=== PATIENT | female | born 1975 | race African-American/Black ===

== ENCOUNTER 2017-06-17 17:38 | Inpatient (IN) | payer MEDICAID, OTHER ==
[~2017-06-17] VITALS: Ht 175.3 cm; Wt 93.5 kg
[2017-06-17] VITALS (7 sets, daily range): BP systolic 126–149; BP diastolic 79–87; PULSE 91–106; RESP 16–18; TEMP 98.2–98.9; O2SAT 97–100
[~2017-06-17 17:38] MED LIST: CYCL-36 PO; GLUCTAB PO; HYDR10TA16 PO; LOMO PO; NEUR600T PO; OXYB5TAB PO; RANI150 PO; SERT100 PO; ZOFR4TAB PO
[2017-06-17] MEDS ORDERED: SODIUM CHLOR 0.9% 1000 ML INJ 1,000 ML IV SCH ×2 (17:48→19:15)
[2017-06-17] MEDS ORDERED: NALOXONE HCL 2 MG/2 ML VIAL IV PUSH ONE (18:00)
[2017-06-17] MEDS ORDERED: SODIUM CHLORIDE 0.9% FLUSH 10 ML FLUSH IV FLUSH PRN ×2 (18:00→19:15)
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
[2017-06-17 18:32] LABS: AUTOMATED NEUTROPHIL # 2.2 TH/MM3 (1.8-7.7); BASOPHIL % 0.7 % (0.0-2.0); EOSINOPHIL # 0.3 TH/MM3 (0-0.4); EOSINOPHIL % 4.4 % (0.0-4.0); HEMATOCRIT 41.7 % (35.0-46.0); HEMOGLOBIN 13.8 GM/DL (11.6-15.3); LYMPH % 47.2 % (9.0-44.0); LYMPHOCYTE # 2.8 TH/MM3 (1.0-4.8); MEAN CELL VOLUME 82.4 FL (80.0-100.0); MEAN CORPUSCULAR HEMOGLOBIN 27.3 PG (27.0-34.0); MEAN CORPUSCULAR HGB CONC 33.1 % (32.0-36.0); MEAN PLATELET VOLUME 8.2 FL (7.0-11.0); MONO % 11.3 % (0.0-8.0); MONOCYTE # 0.7 TH/MM3 (0-0.9); NEUT % 36.4 % (16.0-70.0); PLATELET COUNT 331 TH/MM3 (150-450); RED BLOOD COUNT 5.06 MIL/MM3 (4.00-5.30)
[2017-06-17 18:47] LABS: PROTHROMBIN TIME - PATIENT 10.6 SEC (9.8-11.6)
--- NOTE | 2017-06-17 19:00 | RADRPT ---
EXAM DATE/TIME: 06/17/2017 18:45 [facility] COMPARISON: No previous studies available for comparison. INDICATIONS : Syncopal episode. Unresponsive. RADIATION DOSE: 56.35 CTDIvol (mGy) MEDICAL HISTORY : Non-responsive. SURGICAL HISTORY : Non-responsive. ENCOUNTER: Initial ACUITY: 1 day PAIN SCALE: Non-responsive LOCATION: cranial TECHNIQUE: Multiple contiguous axial images were obtained of the head. Using automated exposure control and adj ustment of the mA and/or kV according to patient size, radiation dose was kept as low as reasonably a chievable to obtain optimal diagnostic quality images. DICOM format image data is available electro nically for review and comparison. FINDINGS: CEREBRUM: The ventricles are normal for age. No evidence of midline shift, mass lesion, hemorrhage or acute in farction. No extra-axial fluid collections are seen. POSTERIOR FOSSA: The cerebellum and brainstem are intact. The 4th ventricle is midline. The cerebellopontine angle i s unremarkable. EXTRACRANIAL: The visualized portion of the orbits is intact. SKULL: The calvaria is intact. No evidence of skull fracture. CONCLUSION: No acute intracranial abnormalities are demonstrated. Rodrigo Rodriguez MD on June 17, 2017 at 18:58 Board Certified Radiologist. This report was verified electronically.
[2017-06-17 19:01] LABS: ALT (GPT) 25 U/L (10-53)
[2017-06-17 19:11] LABS: ALKALINE PHOSPHATASE 73 U/L (45-117); TOTAL BILIRUBIN ADULT 0.2 MG/DL (0.2-1.0); TOTAL PROTEIN 7.4 GM/DL (6.4-8.2)
[2017-06-17] MEDS ORDERED: LACTULOSE SYRUP 20 GM/30 ML CUP PO PRN (19:15)
[2017-06-17] MEDS ORDERED: MAGNESIUM HYDROXIDE SUSP 30 ML CUP PO PRN (19:15)
[2017-06-17] MEDS ORDERED: SENNOSIDES 8.6 MG TAB PO PRN (19:15)
[2017-06-17] MEDS ORDERED: MISCELLANEOUS NURSING INFORMATION XX SCH (19:15)
[2017-06-17] MEDS ORDERED: RESP: ALBUTEROL 2.5 MG/IPRATROPIUM 0.5 MG NEB (PRN) INH (19:15)
[2017-06-17] MEDS ORDERED: BISACODYL 10 MG SUPP RECTAL PRN (19:15)
[2017-06-17] MEDS ORDERED: CHLORHEXIDINE GLUCONATE 2 % 1 PACK (2 CLOTHS) TOP PRN (19:15)
[2017-06-17 19:17] LABS: ALBUMIN 3.2 GM/DL (3.4-5.0); AST (GOT) 27 U/L (15-37); BICARBONATE 27.3 MEQ/L (21.0-32.0); BLOOD UREA NITROGEN 4 MG/DL (7-18); CALCIUM 8.9 MG/DL (8.5-10.1); CHLORIDE 104 MEQ/L (98-107); CREATININE 0.76 MG/DL (0.50-1.00); GLOMERULAR FILTRATION RATE 103 ML/MIN (>89); GLUCOSE,RANDOM 87 MG/DL (74-106); SODIUM (NA) 137 MEQ/L (136-145)
--- NOTE | 2017-06-17 19:24 | RADRPT ---
EXAM DATE/TIME: 06/17/2017 19:11 [facility] COMPARISON: No previous studies available for comparison. INDICATIONS : Syncope MEDICAL HISTORY : None. SURGICAL HISTORY : None. ENCOUNTER: Initial ACUITY: 1 day PAIN SCORE: Non-responsive. LOCATION: chest FINDINGS: A single view of the chest demonstrates the lungs to be symmetrically aerated without evidence of mas s, infiltrate or effusion. The cardiomediastinal contours are unremarkable. Osseous structures are intact. CONCLUSION: No evidence of acute cardiopulmonary disease. Rodrigo Rodriguez MD on June 17, 2017 at 19:21 Board Certified Radiologist. This report was verified electronically.
[2017-06-17 20:08] LABS: BACTERIA, URINE RARE /hpf; BILIRUBIN, URINE NEG (NEG); BLOOD, URINE NEG (NEG); GLUCOSE,URINE NEG (NEG); HYALINE CAST, URINE 1 /lpf (RARE); KETONE, URINE NEG (NEG); MUCUS URINE FEW /lpf (OCC); NITRITE,URINE NEG (NEG); PH, URINE 6.5 (5.0-8.5); SQUAMOUS EPITHELIAL CELL URINE 3 /hpf (0-5); URINE COLOR YELLOW (YELLW/STRAW); URINE LEUKOCYTE ESTERASE TRACE (NEG)
[2017-06-17] MEDS: SODIUM CHLORIDE 0.9% FLUSH 10 ML FLUSH IV FLUSH SCH (21:00)
[2017-06-17] MEDS: DOCUSATE SODIUM 50 MG/SENNA 8.6 MG TAB PO SCH (21:00)
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
[2017-06-18] VITALS (12 sets, daily range): BP systolic 115–132; BP diastolic 68–80; PULSE 84–104; RESP 14–16; TEMP 97.6–99; O2SAT 100
[2017-06-18] MEDS: ONDANSETRON HCL 4 MG/2 ML VIAL IV PUSH PRN ×2 (01:21→06:07)
[2017-06-18] MEDS ORDERED: ACETAMINOPHEN 1000 MG/100 ML 100 ML IV ONE (02:45)
[2017-06-18 04:04] LABS: AUTOMATED NEUTROPHIL # 2.9 TH/MM3 (1.8-7.7); BASOPHIL % 0.6 % (0.0-2.0); EOSINOPHIL # 0.2 TH/MM3 (0-0.4); EOSINOPHIL % 3.2 % (0.0-4.0); HEMATOCRIT 38.8 % (35.0-46.0); HEMOGLOBIN 12.8 GM/DL (11.6-15.3); LYMPH % 35.7 % (9.0-44.0); LYMPHOCYTE # 2.2 TH/MM3 (1.0-4.8); MEAN CELL VOLUME 82.9 FL (80.0-100.0); MEAN CORPUSCULAR HEMOGLOBIN 27.4 PG (27.0-34.0); MEAN PLATELET VOLUME 7.7 FL (7.0-11.0); MONOCYTE # 0.7 TH/MM3 (0-0.9); NEUT % 48.5 % (16.0-70.0); PLATELET COUNT 293 TH/MM3 (150-450); RED BLOOD COUNT 4.68 MIL/MM3 (4.00-5.30); RED CELL DISTRIBUTION WIDTH 13.9 % (11.6-17.2); WHITE BLOOD COUNT 6.1 TH/MM3 (4.0-11.0)
[2017-06-18] MEDS: CHLORHEXIDINE GLUCONATE 2 % 1 PACK (2 CLOTHS) TOP SCH (04:12)
[2017-06-18 04:29] LABS: ALKALINE PHOSPHATASE 66 U/L (45-117); ALT (GPT) 24 U/L (10-53); AST (GOT) 19 U/L (15-37); BICARBONATE 27.7 MEQ/L (21.0-32.0); BLOOD UREA NITROGEN 4 MG/DL (7-18); CALCIUM 7.8 MG/DL (8.5-10.1); CHLORIDE 107 MEQ/L (98-107); GLOMERULAR FILTRATION RATE 135 ML/MIN (>89); GLUCOSE,RANDOM 90 MG/DL (74-106); MAGNESIUM 1.9 MG/DL (1.5-2.5); PHOSPHORUS 3.5 MG/DL (2.5-4.9); SODIUM (NA) 139 MEQ/L (136-145); TOTAL BILIRUBIN ADULT 0.2 MG/DL (0.2-1.0); TOTAL PROTEIN 6.8 GM/DL (6.4-8.2)
--- NOTE | 2017-06-18 08:43 | HHI.CCPN ---
Subjective Remarks/Hospital Course This is a 41-year-old female with a history of previous cauda equina syndrome with resultant right lower extremity paralysis, who presents via EMS from home after she reportedly was unresponsive since earlier today. As reported by paramedics, the patient has had URI type symptoms for the last 5-7 days. Paramedics report that the family stated that she has been pretty much laying on the couch and not ambulatory for several days. There is no reported fevers. There is no reported nausea vomiting. The patient is a diabetic. The patient 's blood sugar was above 60 by paramedics and is 97 here. The patient is unable to give any history. Patient was accepted for admission by critical care medicine service. When I evaluated the patient I obtain more history from the family at bedside. Patient [place] 2 [place] for question of tremors and was diagnosed with seizures. She was referred to be tests hospice. Per family they are not aware of any EEGs or neurology workup. Per family she was prescribed new medications and since then has been declining. Patient reportedly was awake and alert this morning and showered as well. Since arrival in the ER patient has been very lethargic though arousable with sternal rub. There is no documented fever. Family denies any nausea vomiting diarrhea. There was some question of swelling over her forehead which is not present currently. Head CT done in the ER was negative for any bleed. When I evaluated the patient she was laying in the ER stretcher not in any acute distress maintaining her O2 sats and blood pressure. History was obtained by reviewing records and discussion with family members and Dr. Brunson in the ER. 06/18 Patient is lying in bed in NAD. Afebrile. CT brain last night no acute disease.Afebrile. Objective Vital Signs Date Time Temp Pulse Resp B/P (MAP) Pulse Ox O2 Delivery O2 Flow Rate FiO2 06/18/17 08:11 100 06/18/17 06:00 84 06/18/17 04:00 97.6 14 124/69 (87) 06/17/17 22:48 Room Air Intake and Output 06/18/17 06/18/17 06/19/17 08:00 16:00 00:00 Intake Total 673 ml Output Total 750 ml Balance -77 ml Result Diagram: 06/18/17 0345 06/18/17 0345 Other Results Laboratory Tests Test 1/25/18 17:55 06/17/17 17:59 06/17/17 19:05 06/17/17 19:30 Blood Gas Puncture Site RT BRACHIAL Blood Gas Patient Temperature 98.6 Blood Gas HCO3 27 mmol/L Blood Gas Base Excess 2.7 mmol/L Blood Gas Oxygen Saturation 94 % Arterial Blood pH 7.42 Arterial Blood Partial Pressure CO2 42 mmHg Arterial Blood Partial Pressure O2 97 mmHG Arterial Blood Oxygen Content 17.3 Vol % Arterial Blood Carboxyhemoglobin 3.6 % Arterial Blood Methemoglobin 0.7 % Blood Gas Hemoglobin 13.1 G/DL Blood Gas Inspired Oxygen 21 % White Blood Count 6.0 TH/MM3 Red Blood Count 5.06 MIL/MM3 Hemoglobin 13.8 GM/DL Hematocrit 41.7 % Mean Corpuscular Volume 82.4 FL Mean Corpuscular Hemoglobin 27.3 PG Mean Corpuscular Hemoglobin Concent 33.1 % Red Cell Distribution Width 14.0 % Platelet Count 331 TH/MM3 Mean Platelet Volume 8.2 FL Neutrophils (%) (Auto) 36.4 % Lymphocytes (%) (Auto) 47.2 % Monocytes (%) (Auto) 11.3 % Eosinophils (%) (Auto) 4.4 % Basophils (%) (Auto) 0.7 % Neutrophils # (Auto) 2.2 TH/MM3 Lymphocytes # (Auto) 2.8 TH/MM3 Monocytes # (Auto) 0.7 TH/MM3 Eosinophils # (Auto) 0.3 TH/MM3 Basophils # (Auto) 0.0 TH/MM3 CBC Comment DIFF FINAL Differential Comment Prothrombin Time 10.6 SEC Prothromb Time International Ratio 1.0 RATIO Activated Partial Thromboplast Time 21.4 SEC Blood Urea Nitrogen 4 MG/DL Creatinine 0.76 MG/DL Random Glucose 87 MG/DL Total Protein 7.4 GM/DL Albumin 3.2 GM/DL Calcium Level 8.9 MG/DL Alkaline Phosphatase 73 U/L Aspartate Amino Transf (AST/SGOT) 27 U/L Alanine Aminotransferase (ALT/SGPT) 25 U/L Total Bilirubin 0.2 MG/DL Sodium Level 137 MEQ/L Potassium Level 4.2 MEQ/L Chloride Level 104 MEQ/L Carbon Dioxide Level 27.3 MEQ/L Anion Gap 6 MEQ/L Estimat Glomerular Filtration Rate 103 ML/MIN Ammonia 17 MCMOL/L Total Creatine Kinase 228 U/L Creatine Kinase MB 3.4 NG/ML Creatine Kinase MB % 1.5 % Thyroid Stimulating Hormone 3rd Gen 1.760 uIU/ML Ethyl Alcohol Level LESS THAN 3 MG/DL Nasal Screen MRSA (PCR) MRSA NOT DETECTED Urine Color YELLOW Urine Turbidity CLEAR Urine pH 6.5 Urine Specific [place] 1.011 Urine Protein NEG mg/dL Urine Glucose (UA) NEG mg/dL Urine Ketones NEG mg/dL Urine Occult Blood NEG Urine Nitrite NEG Urine Bilirubin NEG Urine Urobilinogen LESS THAN 2.0 MG/DL Urine Leukocyte Esterase TRACE Urine RBC LESS THAN 1 /hpf Urine WBC 3 /hpf Urine Squamous Epithelial Cells 3 /hpf Urine Bacteria RARE /hpf Urine Hyaline Casts 1 /lpf Urine Mucus FEW /lpf Microscopic Urinalysis Comment CULT NOT INDICATED Urine Opiates Screen POS Urine Barbiturates Screen NEG Urine Amphetamines Screen NEG Urine Benzodiazepines Screen NEG Urine Cocaine Screen NEG Urine Cannabinoids Screen POS Test 06/18/17 03:45 White Blood Count 6.1 TH/MM3 Red Blood Count 4.68 MIL/MM3 Hemoglobin 12.8 GM/DL Hematocrit 38.8 % Mean Corpuscular Volume 82.9 FL Mean Corpuscular Hemoglobin 27.4 PG Mean Corpuscular Hemoglobin Concent 33.0 % Red Cell Distribution Width 13.9 % Platelet Count 293 TH/MM3 Mean Platelet Volume 7.7 FL Neutrophils (%) (Auto) 48.5 % Lymphocytes (%) (Auto) 35.7 % Monocytes (%) (Auto) 12.0 % Eosinophils (%) (Auto) 3.2 % Basophils (%) (Auto) 0.6 % Neutrophils # (Auto) 2.9 TH/MM3 Lymphocytes # (Auto) 2.2 TH/MM3 Monocytes # (Auto) 0.7 TH/MM3 Eosinophils # (Auto) 0.2 TH/MM3 Basophils # (Auto) 0.0 TH/MM3 CBC Comment DIFF FINAL Differential Comment Blood Urea Nitrogen 4 MG/DL Creatinine 0.60 MG/DL Random Glucose 90 MG/DL Total Protein 6.8 GM/DL Albumin 3.0 GM/DL Calcium Level 7.8 MG/DL Phosphorus Level 3.5 MG/DL Magnesium Level 1.9 MG/DL Alkaline Phosphatase 66 U/L Aspartate Amino Transf (AST/SGOT) 19 U/L Alanine Aminotransferase (ALT/SGPT) 24 U/L Total Bilirubin 0.2 MG/DL Sodium Level 139 MEQ/L Potassium Level 3.8 MEQ/L Chloride Level 107 MEQ/L Carbon Dioxide Level 27.7 MEQ/L Anion Gap 4 MEQ/L Estimat Glomerular Filtration Rate 135 ML/MIN Imaging Last Impressions Head CT [id number] Signed Impressions: Service Date/Time: May 18:45 - CONCLUSION: No acute intracranial abnormalities are demonstrated. Rodrigo Rodriguez MD Chest X-Ray [id number] Signed Impressions: Service Date/Time: May 19:11 - CONCLUSION: No evidence of acute cardiopulmonary disease. Rodrigo Rodriguez MD Objective Remarks Narrative GENERAL: Well-developed well-nourished female in no obvious respiratory discomfort. The patient will open her eyes to deep sternal rub only. SKIN: Focused skin assessment warm/dry. HEAD: Atraumatic. Normocephalic. EYES: Pupils equal and round at 3 mm bilaterally. They are reactive.. No scleral icterus. Minimal conjunctival erythema ENT: No nasal bleeding or discharge. Mucous membranes pink and moist. NECK: Trachea midline. No JVD. No neck stiffness noted CARDIOVASCULAR: Regular rate and rhythm. No murmur appreciated. RESPIRATORY: No accessory muscle use. Clear to auscultation. Breath sounds equal bilaterally. Decreased respiratory effort. GASTROINTESTINAL: Abdomen soft, non-tender, nondistended. MUSCULOSKELETAL: No obvious deformities. No clubbing. No cyanosis. No edema. NEUROLOGICAL: Stuporous, nonverbal. Arousable to deep sternal rub with eye opening only. No neck stiffness, Patient not observed moving or withdrawing to painful stimuli. Plantars equivocal A/P Assessment and Plan 41-year-old female with: Encephalopathy: Possibly secondary to medication versus postictal state versus metabolic versus primary neurologic process Diabetes mellitus History of cauda equina syndrome with right lower extremity weakness Morbid obesity ? Epilepsy (unclear) Plan: Neuro: Avoid sedatives and narcotics. Follow neuro status. Head CT negative for bleed. For EEG today, neurology consulted. Check MRI brain for further evaluation UDS: + Opiates, cannabinoids TSH: 1.76, Ammonia level: 17 CV: MOnitor HR and BP keep MAP>65mmHg Pulmo: Continue with oxygen keep sats >92%% Bronchodilators as needed. GI/liver:NPO for now, If no improvement in neurologic status may require NG tube for tube feeds Renal/: Monitor renal function, electrolytes replacement per protocol. Change IVF D5NS@75ml/hr ID: Monitor for signs of infections ( Fever, WBC) Follow up on BC. Endocrine: TSH normal. SSI for glycemic control. Heme: Follow CBC Prophylaxis: SCDs. Hold Lovenox as patient may require lumbar puncture following neurology eval if no improvement in neurologic status. Patient will remain full CODE STATUS at this time. Level 3 Yoni Arias MD Jun 18, 2017 08:43
[2017-06-18] MEDS ORDERED: POTASSIUM PHOSPHATE MONOBASIC 500 MG TAB PO/TUBE PRN (09:00)
[2017-06-18] MEDS ORDERED: SODIUM PHOSPHATE INJ 30 MMOL in SODIUM CHLOR 0.9% 250 ML INJ 240 ML IV PRN (09:00)
[2017-06-18] MEDS ORDERED: MAGNESIUM SULFATE INJ 4 GM in SODIUM CHLORIDE 0.9% INJ 92 ML IV PRN (09:00)
[2017-06-18] MEDS: DOCUSATE SODIUM 50 MG/SENNA 8.6 MG TAB PO SCH ×2 (09:00→19:59)
[2017-06-18] MEDS ORDERED: DEXTROSE 50% IN WATER 50 ML VIAL(D50) IV PUSH PRN (09:00)
[2017-06-18] MEDS ORDERED: POTASSIUM PHOSPHATE INJ 30 MMOL in SODIUM CHLOR 0.9% 250 ML INJ 250 ML IV PRN (09:00)
[2017-06-18] MEDS: INSULIN NovoLIN REGULAR SUPPLEMENTAL SCALE SQ SCH ×3 (09:00→19:59)
[2017-06-18] MEDS ORDERED: POTASSIUM CHLOR 40 MEQ PREMIX 100 ML IV PRN ×2 (09:00)
[2017-06-18] MEDS ORDERED: POTASSIUM CHLOR 20 MEQ PREMIX 100 ML IV PRN ×2 (09:00)
[2017-06-18] MEDS ORDERED: MAGNESIUM SULFATE INJ 2 GM in SODIUM CHLORIDE 0.9% INJ 96 ML IV PRN (09:00)
[2017-06-18] MEDS ORDERED: POTASSIUM PHOSPHATE MONOBASIC 500 MG TAB PO PRN (09:00)
[2017-06-18] MEDS ORDERED: MAGNESIUM OXIDE 400 MG TAB PO PRN (09:00)
[2017-06-18] MEDS ORDERED: GLUCAGON 1 MG/ML VIAL OTHER PRN (09:00)
[2017-06-18] MEDS ORDERED: POTASSIUM CHLORIDE 25 MEQ EFFERVESCENT TAB PO PRN (09:00)
--- NOTE | 2017-06-18 09:57 | EKG ---
Date Performed: 06/17/2017 Time Performed: 17:35:22 PTAGE: 41 years EKG: Sinus rhythm LOW QRS VOLTAGE IN PRECORDIAL LEADS POSSIBLE RIGHT VENTRICULAR CONDUCTION DELAY BORDERLINE ECG INTER PRETATION BASED ON A DEFAULT AGE OF 42 YEARS NO PREVIOUS TRACING DOCTOR: Ramesh Romo Interpretating Date/Time 06/18/2017 09:55:52
--- NOTE | 2017-06-18 11:16 | RADRPT ---
EXAM DATE/TIME: 06/18/2017 10:28 [facility] COMPARISON: CT BRAIN W/O CONTRAST, June 17, 2017, 18:45. INDICATIONS : Altered mental status. MEDICAL HISTORY : None. SURGICAL HISTORY : None. ENCOUNTER: Subsequent ACUITY: 2 day PAIN SCORE: Nonresponsive. LOCATION: cranial TECHNIQUE: Multiplanar, multisequence MRI of the brain was performed without contrast. FINDINGS: CEREBRUM: The ventricles are normal for age. No evidence of midline shift, mass lesion, hemorrhage or acute in farction. No extraaxial fluid collections are seen. The pituitary gland and suprasellar cistern are normal in configuration. WHITE MATTER: No significant signal abnormalities are seen in the white matter. POSTERIOR FOSSA: The cerebellum and brainstem are intact. The 4th ventricle is midline. The cerebellopontine angle is unremarkable. The cerebellar tonsils are normal in position. DIFFUSION IMAGING: No focal areas of restricted diffusion are seen. No evidence of acute infarction. EXTRACRANIAL: The visualized portions of the orbits and paranasal sinuses are unremarkable. CONCLUSION: Negative exam. Kwesi Campoverde MD on June 18, 2017 at 11:11 Board Certified Radiologist. This report was verified electronically.
[2017-06-18] MEDS: DEXT 5%-NACL 0.9% 1000 ML INJ 1,000 ML IV SCH ×2 (12:39→22:20)
[2017-06-18] MEDS ORDERED: LORazepam 2 MG/ML VIAL IV PRN (14:15)
--- NOTE | 2017-06-18 16:23 | RADRPT ---
EXAM DATE/TIME: 06/18/2017 15:45 [facility] COMPARISON: No previous studies available for comparison. INDICATIONS : Pain. Neck pain, and right upper extremity weakness. MEDICAL HISTORY : None. SURGICAL HISTORY : Discectomy, lumbar. ENCOUNTER: Initial ACUITY: 1 day PAIN SCORE: 4/10 LOCATION: Paraspinal TECHNIQUE: Multiplanar, multisequence MRI examination of the cervical spine was performed. FINDINGS: By MRI the marrow signal in the cervical vertebrae are homogeneous and normal. Cerebellar tonsils ar e normal in composition. C2-C3: The thecal sac has a normal configuration. There is no evidence of disc herniation or spinal canal s tenosis. The neural foramina are patent bilaterally. C3-C4: Moderate uncinate ridging is present with moderate right-sided neural foraminal encroachment. C4-C5: Uncinate ridging is present with mild bilateral neural foramina encroachment worse on the right than the left. C5-C6: Moderately ridging is present minimal right sided neural foramina encroachment. Neural foramina are adequate. C6-C7: The thecal sac has a normal configuration. There is no evidence of disc herniation or spinal canal s tenosis. The left neural foramen is adequate. C7-T1: The thecal sac has a normal configuration. There is no evidence of disc herniation or spinal canal s tenosis. The neural foramina are patent bilaterally. CONCLUSION: Mild degenerative changes. There is no significant spinal stenosis to account for th e opportunity weakness. The density in the cervical cord is normal. René Serrano MD FACR on June 18, 2017 at 16:19 Board Certified Radiologist. This report was verified electronically.
--- NOTE | 2017-06-18 19:45 | RADRPT ---
EXAM DATE/TIME: 06/18/2017 18:34 [facility] COMPARISON: No previous studies available for comparison. INDICATIONS : Syncope. MEDICAL HISTORY : Herniated disk. Diabetes. Ovarian cysts. SURGICAL HISTORY : section. Orthopedic surgery. D&C. ENCOUNTER: Initial ACUITY: 1 day PAIN SCORE: 0/10 LOCATION: Bilateral neck PEAK SYSTOLIC VELOCITIES (cm/sec): ICA/CCA RATIO: Right: 0.8 Left: 0.7 ICA: Right: 81.1 Left: 83.1 CCA: Right: 104.4 Left: 110.8 ECA: Right: 82.4 Left: 93.0 VERTEBRAL: Right: 59.2 antegrade Left: 50.1 antegrade Elevated flow velocities and ICA/CCA ratios have been found to correlate with increased degrees of vessel stenosis, calculated as percentage of diameter relative to a normal segment of distal ICA/CCA FINDINGS: RIGHT CAROTID: No significant stenosis is visualized. The waveforms are within normal limits. LEFT CAROTID: No significant stenosis is visualized. The waveforms are within normal limits. VERTEBRAL ARTERIES: Antegrade flow is seen in both vertebral arteries. MISCELLANEOUS: None. CONCLUSION: 1. Minimal plaque in the carotid arteries bilaterally without hemodynamically significant stenosis. V ertebral artery flow antegrade. Mychal Del Rosario MD on June 18, 2017 at 19:42 Board Certified Radiologist. This report was verified electronically.
[2017-06-18] MEDS: SODIUM CHLORIDE 0.9% FLUSH 10 ML FLUSH IV FLUSH SCH (19:58)
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
--- NOTE | 2017-06-18 22:05 | MG ---
cc: FRANCIS GARLAND MD Lab No: Date: 06/18/17 Age: 41 Sex: F Race: REQUESTED PHYSICIAN Dr. Melgar An EEG was obtained on this 41-year-old patient being evaluated for transient decreased responsiveness. This EEG shows a lot of 10-12 per second alpha rhythms centrally and posteriorly. There is beta activity intermixed. There are occasional sharp contoured waves and a rare sharp discharge of equivocal significance. There is artifact. The patient drowses and there is more beta activity. Photic stimulation showed some bilateral driving response. INTERPRETATION Probably normal predominantly awake EEG. Francis Garland MD [facility]/ /7:52 PM /10:01 PM
[2017-06-18] MEDS: ACETAMINOPHEN 325 MG TAB PO PRN (23:52)
[2017-06-19] VITALS (15 sets, daily range): BP systolic 104–151; BP diastolic 58–88; PULSE 79–105; RESP 18–44; TEMP 99–99.3; O2SAT 99–100
[2017-06-19] MEDS: INSULIN NovoLIN REGULAR SUPPLEMENTAL SCALE SQ SCH ×5 (01:00→21:00)
[2017-06-19] MEDS: CHLORHEXIDINE GLUCONATE 2 % 1 PACK (2 CLOTHS) TOP SCH (01:15)
[2017-06-19 04:57] LABS: AUTOMATED NEUTROPHIL # 2.4 TH/MM3 (1.8-7.7); BASOPHIL % 0.7 % (0.0-2.0); EOSINOPHIL # 0.2 TH/MM3 (0-0.4); EOSINOPHIL % 3.8 % (0.0-4.0); HEMATOCRIT 37.7 % (35.0-46.0); HEMOGLOBIN 12.5 GM/DL (11.6-15.3); LYMPH % 31.7 % (9.0-44.0); LYMPHOCYTE # 1.5 TH/MM3 (1.0-4.8); MEAN CELL VOLUME 83.1 FL (80.0-100.0); MEAN CORPUSCULAR HEMOGLOBIN 27.6 PG (27.0-34.0); MEAN CORPUSCULAR HGB CONC 33.2 % (32.0-36.0); MEAN PLATELET VOLUME 7.9 FL (7.0-11.0); MONO % 13.6 % (0.0-8.0); MONOCYTE # 0.6 TH/MM3 (0-0.9); NEUT % 50.2 % (16.0-70.0); PLATELET COUNT 294 TH/MM3 (150-450); RED BLOOD COUNT 4.54 MIL/MM3 (4.00-5.30); RED CELL DISTRIBUTION WIDTH 13.5 % (11.6-17.2); WHITE BLOOD COUNT 4.8 TH/MM3 (4.0-11.0)
[2017-06-19 05:25] LABS: BICARBONATE 24.2 MEQ/L (21.0-32.0); CALCIUM 8.3 MG/DL (8.5-10.1); CREATININE 0.54 MG/DL (0.50-1.00); MAGNESIUM 1.9 MG/DL (1.5-2.5); PHOSPHORUS 3.5 MG/DL (2.5-4.9)
[2017-06-19] MEDS ORDERED: IBUPROFEN 600 MG TAB PO ONE (05:45)
[2017-06-19] MEDS: DEXT 5%-NACL 0.9% 1000 ML INJ 1,000 ML IV SCH ×2 (05:56→19:31)
--- NOTE | 2017-06-19 07:40 | HHI.CCPN ---
Subjective Remarks/Hospital Course This is a 41-year-old female with a history of previous cauda equina syndrome with resultant right lower extremity paralysis, who presents via EMS from home after she reportedly was unresponsive since earlier today. As reported by paramedics, the patient has had URI type symptoms for the last 5-7 days. Paramedics report that the family stated that she has been pretty much laying on the couch and not ambulatory for several days. There is no reported fevers. There is no reported nausea vomiting. The patient is a diabetic. The patient 's blood sugar was above 60 by paramedics and is 97 here. The patient is unable to give any history. Patient was accepted for admission by critical care medicine service. When I evaluated the patient I obtain more history from the family at bedside. Patient [place] 2 [place] for question of tremors and was diagnosed with seizures. She was referred to be tests hospice. Per family they are not aware of any EEGs or neurology workup. Per family she was prescribed new medications and since then has been declining. Patient reportedly was awake and alert this morning and showered as well. Since arrival in the ER patient has been very lethargic though arousable with sternal rub. There is no documented fever. Family denies any nausea vomiting diarrhea. There was some question of swelling over her forehead which is not present currently. Head CT done in the ER was negative for any bleed. When I evaluated the patient she was laying in the ER stretcher not in any acute distress maintaining her O2 sats and blood pressure. History was obtained by reviewing records and discussion with family members and Dr. Brunson in the ER. 06/18 Patient is lying in bed in NAD. Afebrile. CT brain last night no acute disease.Afebrile. 06/19 No events overnight. Patient is awake and alert mental status overall better. MRI brain is negative for acute process. Afebrile. Objective Vital Signs Date Time Temp Pulse Resp B/P (MAP) Pulse Ox O2 Delivery O2 Flow Rate FiO2 06/19/17 06:00 99 06/19/17 04:00 99.0 18 124/75 (91) 100 06/17/17 22:48 Room Air Intake and Output 06/19/17 06/19/17 06/20/17 08:00 16:00 00:00 Intake Total 1000 ml Output Total 1200 ml Balance -200 ml Result Diagram: 06/19/17 0357 06/19/17 0357 Other Results Laboratory Tests Test 06/18/17 11:12 06/19/17 03:57 Phosphorus Level 3.1 MG/DL 3.5 MG/DL White Blood Count 4.8 TH/MM3 Red Blood Count 4.54 MIL/MM3 Hemoglobin 12.5 GM/DL Hematocrit 37.7 % Mean Corpuscular Volume 83.1 FL Mean Corpuscular Hemoglobin 27.6 PG Mean Corpuscular Hemoglobin Concent 33.2 % Red Cell Distribution Width 13.5 % Platelet Count 294 TH/MM3 Mean Platelet Volume 7.9 FL Neutrophils (%) (Auto) 50.2 % Lymphocytes (%) (Auto) 31.7 % Monocytes (%) (Auto) 13.6 % Eosinophils (%) (Auto) 3.8 % Basophils (%) (Auto) 0.7 % Neutrophils # (Auto) 2.4 TH/MM3 Lymphocytes # (Auto) 1.5 TH/MM3 Monocytes # (Auto) 0.6 TH/MM3 Eosinophils # (Auto) 0.2 TH/MM3 Basophils # (Auto) 0.0 TH/MM3 CBC Comment DIFF FINAL Differential Comment Blood Urea Nitrogen 3 MG/DL Creatinine 0.54 MG/DL Random Glucose 99 MG/DL Calcium Level 8.3 MG/DL Magnesium Level 1.9 MG/DL Sodium Level 137 MEQ/L Potassium Level 3.4 MEQ/L Chloride Level 106 MEQ/L Carbon Dioxide Level 24.2 MEQ/L Anion Gap 7 MEQ/L Estimat Glomerular Filtration Rate 152 ML/MIN Imaging Last Impressions Cervical Spine MRI 06/18/17 0000 Signed Impressions: Service Date/Time: Sunday, June 18, 2017 15:45 - CONCLUSION: Mild degenerative changes. There is no significant spinal stenosis to account for the opportunity weakness. The density in the cervical cord is normal. René Serrano MD FACR Carotid Artery Ultrasound 06/18/17 0000 Signed Impressions: Service Date/Time: Sunday, June 18, 2017 18:34 - CONCLUSION: 1. Minimal plaque in the carotid arteries bilaterally without hemodynamically significant stenosis. Vertebral artery flow antegrade. Mychal Del Rosario MD Brain MRI 06/18/17 0000 Signed Impressions: Service Date/Time: Sunday, June 18, 2017 10:28 - CONCLUSION: Negative exam. Kwesi Campoverde MD Head CT [id number]/17/[id number] Signed Impressions: Service Date/Time: May 18:45 - CONCLUSION: No acute intracranial abnormalities are demonstrated. Rodrigo Rodriguez MD Chest X-Ray [id number]/17/171747 Signed Impressions: Service Date/Time: May 19:11 - CONCLUSION: No evidence of acute cardiopulmonary disease. Rodrigo Rodriguez MD Objective Remarks GENERAL: Patient is 41 lying in bed in NAD SKIN: Warm and dry. HEAD: Normocephalic. EYES: No scleral icterus. No injection or drainage. NECK: Supple, trachea midline. No JVD or lymphadenopathy. CARDIOVASCULAR: Regular rate and rhythm without murmurs, gallops, or rubs. RESPIRATORY: Breath sounds equal bilaterally. No accessory muscle use. GASTROINTESTINAL: Abdomen soft, non-tender, nondistended. MUSCULOSKELETAL: No cyanosis, or edema. Neuro: Awake and alert A/P Assessment and Plan 41-year-old female with: Encephalopathy: Possibly secondary to medication versus postictal state versus metabolic versus primary neurologic process - Resolved Diabetes mellitus History of cauda equina syndrome with right lower extremity weakness Morbid obesity ? Epilepsy (unclear) Hypokalemia Plan: Neuro: Patient is awake and alert. Monitor neuro status, avoid sedatives and narcotics. UDS: + Opiates, cannabinoids TSH: 1.76, Ammonia level: [address] negative for bleed. MRI brain negative for acute process, MRI cervical spine: Mild degenerative changes Carotid Doppler US: Minimal plaque in the carotid arteries bilaterally without hemodynamically significant stenosis. Neuro is following, EEG within normal. CV: Monitor HR and BP keep MAP>65mmHg Pulmo: Continue with oxygen keep sats >92%% Bronchodilators as needed. GI/liver: start PO regular diet Renal/: Monitor renal function, electrolytes replacement per protocol. Will need K replacement today IVF D5NS@75ml/hr ID: Monitor for signs of infections ( Fever, WBC) Follow up on BC- NGTD Endocrine: TSH normal. SSI for glycemic control. Heme: Follow CBC Prophylaxis: SCDs. add Heparin SQ Will sign off and transfer care to [facility] Level 2 Yoni Arias MD Jun 19, 2017 07:40
[2017-06-19] MEDS: SODIUM CHLORIDE 0.9% FLUSH 10 ML FLUSH IV FLUSH SCH (08:34)
[2017-06-19] MEDS: DOCUSATE SODIUM 50 MG/SENNA 8.6 MG TAB PO SCH ×2 (08:34→21:00)
[2017-06-19] MEDS ORDERED: ACETAMINOPHEN 325 MG TAB PO ONE (12:30)
--- NOTE | 2017-06-19 13:29 | EKG ---
Date Performed: 06/18/2017 Time Performed: 11:28:34 PTAGE: 41 years EKG: SINUS TACHYCARDIA Since the prior tracing, there has been no significant change ABNORMAL RH [facility] ECG PREVIOUS TRACING : 06/17/2017 17.35 DOCTOR: Rudy Carrillo Interpretating Date/Time 06/19/2017 13:27:41
[2017-06-19] MEDS ORDERED: oxyCODONE/ACETAMINOPHEN 5 MG/325 MG TAB PO ONE (14:15)
[2017-06-19] MEDS: ONDANSETRON HCL 4 MG/2 ML VIAL IV PUSH PRN (14:47)
[2017-06-19] MEDS: HEPARIN SODIUM - SQ 10,000 UNITS/ML VIAL SQ SCH (18:00)
[2017-06-19] MEDS: ACETAMINOPHEN/HYDROcodone 325 MG/10 MG TAB PO PRN (19:30)
[2017-06-20] VITALS (7 sets, daily range): BP systolic 106–120; BP diastolic 66–72; PULSE 81–94; RESP 16–18; TEMP 97.1–98.9; O2SAT 92–100
[2017-06-20] MEDS: ACETAMINOPHEN/HYDROcodone 325 MG/10 MG TAB PO PRN ×3 (00:28→17:41)
[2017-06-20] MEDS: ONDANSETRON HCL 4 MG/2 ML VIAL IV PUSH PRN (00:28)
[2017-06-20] MEDS: ZOLPIDEM TARTRATE 10 MG TAB PO PRN ×2 (00:28→20:33)
[2017-06-20] MEDS: SODIUM CHLORIDE 0.9% FLUSH 10 ML FLUSH IV FLUSH SCH ×3 (00:32→20:38)
[2017-06-20] MEDS: DEXT 5%-NACL 0.9% 1000 ML INJ 1,000 ML IV SCH ×2 (01:00→14:20)
[2017-06-20] MEDS: INSULIN NovoLIN REGULAR SUPPLEMENTAL SCALE SQ SCH ×6 (01:00→20:39)
[2017-06-20] MEDS: HEPARIN SODIUM - SQ 10,000 UNITS/ML VIAL SQ SCH ×2 (06:00→17:38)
[2017-06-20] MEDS: ONDANSETRON ODT 4 MG TAB PO PRN ×4 (07:54→23:30)
--- NOTE | 2017-06-20 09:48 | HHI.PR ---
Subjective Remarks Follow-up right upper extremity weakness, diabetes. The patient states that she has had nausea this morning. She is currently eating breakfast and seems to be tolerating it well. She reports that she has no strength in her right upper extremity. 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 Denies chest pain or dyspnea. Objective Vitals Vital Signs Date Time Temp Pulse Resp B/P (MAP) Pulse Ox O2 Delivery O2 Flow Rate FiO2 06/20/17 08:00 97.1 94 16 106/70 (82) 98 06/20/17 04:00 81 06/20/17 00:00 88 06/19/17 20:00 96 06/19/17 18:14 79 20 151/88 (109) 100 06/19/17 18:14 79 06/19/17 18:00 86 06/19/17 18:00 86 20 100 06/19/17 16:00 98 06/19/17 16:00 98 23 100 06/19/17 14:00 102 06/19/17 14:00 102 44 100 06/19/17 13:00 96 25 124/75 (91) 100 06/19/17 12:00 100 21 120/72 (88) 100 06/19/17 12:00 100 06/19/17 11:00 105 25 128/82 (97) 100 06/19/17 10:00 97 23 126/73 (90) 100 06/19/17 10:00 97 I/O 06/19/17 06/19/17 06/19/17 06/20/17 06/20/17 06/20/17 07:00 15:00 23:00 07:00 15:00 23:00 Intake Total 1000 ml 750 ml 600 ml Output Total 1200 ml 1200 ml 1600 ml Balance -200 ml -450 ml -1000 ml Intake Oral 750 ml 600 ml IV Total 1000 ml Output Urine Total 1200 ml 1200 ml 1600 ml # Bowel Movements 0 0 Result Diagram: 06/19/177 06/19/17 0357 Imaging Last Impressions Cervical Spine MRI 06/18/17 0000 Signed Impressions: Service Date/Time: Sunday, June 18, 2017 15:45 - CONCLUSION: Mild degenerative changes. There is no significant spinal stenosis to account for the opportunity weakness. The density in the cervical cord is normal. René Serrano MD FACR Carotid Artery Ultrasound 06/18/17 0000 Signed Impressions: Service Date/Time: Sunday, June 18, 2017 18:34 - CONCLUSION: 1. Minimal plaque in the carotid arteries bilaterally without hemodynamically significant stenosis. Vertebral artery flow antegrade. Mychal Del Rosario MD Brain MRI 06/18/17 0000 Signed Impressions: Service Date/Time: Sunday, June 18, 2017 10:28 - CONCLUSION: Negative exam. Kwesi Campoverde MD Head CT [id number]/[id number] Signed Impressions: Service Date/Time: May 18:45 - CONCLUSION: No acute intracranial abnormalities are demonstrated. Rodrigo Rodriguez MD Chest X-Ray [id number]/[id number] Signed Impressions: Service Date/Time: May 19:11 - CONCLUSION: No evidence of acute cardiopulmonary disease. Rodrigo Rodriguez MD Objective Remarks General: Obese female in no acute distress. Heart: Regular rate and rhythm. No murmur. Lungs: Clear to auscultation bilaterally. No wheezes, rales, or rhonchi. Breathing is nonlabored. Abdomen: Soft, nontender, nondistended. Extremities: No lower extremity edema. SCDs. Right upper extremity with significant weakness. Left upper extremity strength is normal. Psych: Alert and oriented. Procedures 06/17/16 attempted placement of internal jugular central line and attempted stent of femoral central line, neither were successful Urinary Catheter: No Vascular Central Line Catheter: No A/P Assessment and Plan 1. Encephalopathy: Resolved. Possibly secondary to medication versus postictal state versus metabolic. Brain MRI is negative. Carotid artery ultrasound shows minimal plaque without hemodynamically significant stenosis. Appreciate neurology recommendations. 2. Diabetes mellitus: Monitor Accu-Cheks and cover with sliding scale insulin. 3. History of cauda equina syndrome: Patient has chronic right lower extremity weakness. 4. History of epilepsy: Continue antiepileptic medications. Patient states that she has been under [facility] hospice care for epilepsy. 5. Hypokalemia: Received supplementation yesterday. Labs are pending today. 6. Right upper extremity weakness: Cervical spine MRI is negative. We'll have occupational therapy work with the patient. Appreciate neurology recommendations. 7. DVT prophylaxis: SCDs, heparin. Discussed with Dr. Garland at bedside. Wiley Crane MD Jun 20, 2017 09:48
[2017-06-20] MEDS: DOCUSATE SODIUM 50 MG/SENNA 8.6 MG TAB PO SCH ×2 (10:08→20:39)
--- NOTE | 2017-06-20 13:32 | HHI.PR ---
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 no other neuro intervention ot for support Subjective Subjective Comments No acute events reported No headache No chest pain No dyspnea Active Medications Current Medications Medications (Trade) Dose Ordered Sig/Ninfa Route Start Time Stop Time Status Last Admin (NS Flush) 2 ml UNSCH PRN IV FLUSH 06/17/17 19:15 (NS Flush) 2 ml BID IV FLUSH 06/17/17 21:00 06/20/17 00:32 (Duoneb Neb) 1 ampule Q2HR NEB PRN INH 06/17/17 19:15 Miscellaneous Information 1 Q361D XX 06/17/17 19:15 (Chlorhexidine 2% Cloth) 3 pack Taper DAILY@04 TOP 06/18/17 04:00 06/14/18 03:59 06/19/17 01:15 (Chlorhexidine 2% Cloth) 3 pack UNSCH PRN TOP 06/17/17 19:15 (Ajnet-Colace) 1 tab BID PO 06/17/17 21:00 06/20/17 10:08 (Milk Of Magnesia Liq) 30 ml Q12H PRN PO 06/17/17 19:15 (Senokot) 17.2 mg Q12H PRN PO 06/17/17 19:15 (Dulcolax Supp) 10 mg DAILY PRN RECTAL 06/17/17 19:15 (Lactulose Liq) 30 ml DAILY PRN PO 06/17/17 19:15 Dextrose/Sodium Chloride 1,000 ml @ 75 mls/hr [id number] IV 06/18/17 09:00 06/19/17 19:31 (D50w (Vial) Inj) 50 ml UNSCH PRN IV PUSH 06/18/17 09:00 (Glucagon Inj) 1 mg UNSCH PRN OTHER 06/18/17 09:00 (NovoLIN R SUPPLEMENTAL SCALE) 1 Q4H SQ 06/18/17 09:00 (Tylenol) 650 mg Q4H PRN PO 06/18/17 14:15 06/18/17 23:52 (Heparin Inj) 5,000 units Q12H SQ 06/19/17 18:00 ([place] 10-325 Mg) 1 tab Q6H PRN PO 06/19/17 18:45 06/20/17 10:08 (Ambien) 10 mg HS PRN PO 06/20/17 00:15 06/20/17 00:28 (Zofran Odt) 4 mg Q6H PRN PO 06/20/17 08:00 06/20/17 07:54 Allergies Allergies Coded Allergies meloxicam (Unverified Allergy, Severe, Swelling, 01/05/17) promethazine (Unverified Allergy, Severe, EDEMA, 01/05/17) Exam I&O / VS Vital Signs Date Time Temp Pulse Resp B/P (MAP) Pulse Ox O2 Delivery O2 Flow Rate FiO2 06/20/17 08:00 97.1 94 16 106/70 (82) 98 06/20/17 04:00 81 06/20/17 00:00 88 06/19/17 20:00 96 06/19/17 18:14 79 20 151/88 (109) 100 06/19/17 18:14 79 06/19/17 18:00 86 06/19/17 18:00 86 20 100 06/19/17 16:00 98 06/19/17 16:00 98 23 100 06/19/17 14:00 102 06/19/17 14:00 102 44 100 Objective Micro and Labs Date/Time Source Procedure Growth Status 06/18/17 08:32 Blood Peripheral Aerobic Blood Culture - Preliminary NO GROWTH IN 2 DAYS Resulted 06/18/17 08:32 Blood Peripheral Anaerobic Blood Culture - Preliminary NO GROWTH IN 2 DAYS Resulted Apolonia Garland MD Jun 20, 2017 13:32
[2017-06-21] MEDS: INSULIN NovoLIN REGULAR SUPPLEMENTAL SCALE SQ SCH ×6 (01:00→21:00)
[2017-06-21] MEDS: CHLORHEXIDINE GLUCONATE 2 % 1 PACK (2 CLOTHS) TOP SCH (01:34)
[2017-06-21] MEDS: DEXT 5%-NACL 0.9% 1000 ML INJ 1,000 ML IV SCH ×2 (01:34→17:00)
[2017-06-21 04:13] VITALS: BP 110/73; PULSE 82; RESP 18; TEMP 97.8; O2SAT 100
[2017-06-21] MEDS: HEPARIN SODIUM - SQ 10,000 UNITS/ML VIAL SQ SCH ×2 (05:09→17:40)
[2017-06-21 06:28] LABS: BASOPHIL % 0.8 % (0.0-2.0); EOSINOPHIL # 0.2 TH/MM3 (0-0.4); HEMATOCRIT 39.1 % (35.0-46.0); HEMOGLOBIN 13.1 GM/DL (11.6-15.3); LYMPH % 38.7 % (9.0-44.0); LYMPHOCYTE # 1.8 TH/MM3 (1.0-4.8); MEAN CELL VOLUME 81.9 FL (80.0-100.0); MEAN CORPUSCULAR HEMOGLOBIN 27.4 PG (27.0-34.0); MEAN CORPUSCULAR HGB CONC 33.5 % (32.0-36.0); MEAN PLATELET VOLUME 7.8 FL (7.0-11.0); MONO % 13.2 % (0.0-8.0); MONOCYTE # 0.6 TH/MM3 (0-0.9); NEUT % 43.3 % (16.0-70.0); PLATELET COUNT 312 TH/MM3 (150-450); RED BLOOD COUNT 4.77 MIL/MM3 (4.00-5.30); RED CELL DISTRIBUTION WIDTH 13.8 % (11.6-17.2); WHITE BLOOD COUNT 4.7 TH/MM3 (4.0-11.0)
[2017-06-21 07:01] LABS: BICARBONATE 25.6 MEQ/L (21.0-32.0); CALCIUM 8.8 MG/DL (8.5-10.1); CREATININE 0.63 MG/DL (0.50-1.00); MAGNESIUM 2.1 MG/DL (1.5-2.5)
[2017-06-21 07:02] LABS: PHOSPHORUS 3.9 MG/DL (2.5-4.9)
[2017-06-21 08:00] VITALS: BP 101/66; PULSE 91; RESP 17; TEMP 98.9; O2SAT 100
[2017-06-21] MEDS: SODIUM CHLORIDE 0.9% FLUSH 10 ML FLUSH IV FLUSH SCH ×2 (08:35→20:59)
[2017-06-21] MEDS: DOCUSATE SODIUM 50 MG/SENNA 8.6 MG TAB PO SCH ×2 (08:35→20:59)
--- NOTE | 2017-06-21 09:44 | HHI.FF ---
Face to Face Verification Diagnosis: (1) Right arm weakness (2) Diabetes mellitus (3) Cauda equina syndrome (4) Encephalopathy (5) Altered mental status Physical Therapy Order: Evaluate and Treat Home Health Nursing Order: Nursing assessment with vital signs I have seen patient Christy Galindo on 06/21/17. My clinical findings support the need for the requested home health care services because: High risk of falls I certify that my clinical findings support that this patient is homebound because: Unsteady gait/balance Wiley Crane MD Jun 21, 2017 09:44
--- NOTE | 2017-06-21 09:45 | HHI.PR ---
Subjective Remarks Follow up diabetes, right arm weakness. Patient reports more nausea today. States that she is trying to advance her diet. Ate mostly broth yesterday. Right arm still weak. 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 Objective Vitals Vital Signs Date Time Temp Pulse Resp B/P (MAP) Pulse Ox O2 Delivery O2 Flow Rate FiO2 06/21/17 08:00 98.9 91 17 101/66 (78) 100 06/21/17 04:13 97.8 82 18 110/73 (85) 100 06/20/17 23:20 98.7 88 18 119/72 (88) 92 06/20/17 20:15 98.3 83 18 113/70 (84) 100 06/20/17 16:00 98.3 82 18 120/70 (87) 100 06/20/17 12:00 98.9 90 16 114/66 (82) 100 I/O 06/20/17 06/20/17 06/20/17 06/21/17 06/21/17 06/21/17 07:00 15:00 23:00 07:00 15:00 23:00 Intake Total 600 ml 360 ml 240 ml Output Total 1600 ml 700 ml 475 ml Balance -1000 ml -340 ml -235 ml Intake Oral 600 ml 360 ml 240 ml Output Urine Total 1600 ml 700 ml 475 ml # Bowel Movements 0 0 0 Result Diagram: 06/21/17 0555 06/21/17 0555 Imaging Last Impressions Cervical Spine MRI 06/18/17 0000 Signed Impressions: Service Date/Time: Sunday, June 18, 2017 15:45 - CONCLUSION: Mild degenerative changes. There is no significant spinal stenosis to account for the opportunity weakness. The density in the cervical cord is normal. René Serrano MD FACR Carotid Artery Ultrasound 06/18/17 0000 Signed Impressions: Service Date/Time: Sunday, June 18, 2017 18:34 - CONCLUSION: 1. Minimal plaque in the carotid arteries bilaterally without hemodynamically significant stenosis. Vertebral artery flow antegrade. Mychal Del Rosario MD Brain MRI 06/18/17 0000 Signed Impressions: Service Date/Time: Sunday, June 18, 2017 10:28 - CONCLUSION: Negative exam. Kwesi Campoverde MD Head CT 06/17/17 [id number] Signed Impressions: Service Date/Time: May 18:45 - CONCLUSION: No acute intracranial abnormalities are demonstrated. Rodrigo Rodriguez MD Chest X-Ray 06/17/17 [id number] Signed Impressions: Service Date/Time: May 19:11 - CONCLUSION: No evidence of acute cardiopulmonary disease. Rodrigo Rodriguez MD Objective Remarks General: Obese female in no acute distress. Heart: Regular rate and rhythm. No murmur. Lungs: Clear to auscultation bilaterally. No wheezes, rales, or rhonchi. Breathing is nonlabored. Abdomen: Soft, nontender, nondistended. Extremities: No lower extremity edema. SCDs. 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 Left upper extremity strength is normal. Psych: Alert and oriented. Procedures 06/17/16 attempted placement of internal jugular central line and attempted stent of femoral central line, neither were successful Urinary Catheter: Yes Assessment to: Remove Vascular Central Line Catheter: No A/P Assessment and Plan 1. Encephalopathy: Resolved. Possibly secondary to medication versus postictal state versus metabolic. Brain MRI is negative. Carotid artery ultrasound shows minimal plaque without hemodynamically significant stenosis. Appreciate neurology recommendations. 2. Diabetes mellitus: Monitor Accu-Cheks and cover with sliding scale insulin. 3. History of cauda equina syndrome: Patient has chronic right lower extremity weakness. 4. History of epilepsy: Patient states that she has been under [facility] hospice care for epilepsy. Appreciate neurology recommendations. Patient had been on Depakote for about 2.5 weeks prior to this hospitalization. 5. Hypokalemia: Improved. 6. Right upper extremity weakness: Cervical spine MRI is negative. We'll have occupational therapy work with the patient. Appreciate neurology recommendations. 7. DVT prophylaxis: SCDs, heparin. Discharge Planning Anticipate discharge home soon. Patient will need home health care. She has an electric wheelchair at home. Will need to be able to transfer from bed to wheelchair. Wiley Crane MD Jun 21, 2017 09:44
[2017-06-21 12:00] VITALS: BP 112/69; PULSE 94; RESP 17; TEMP 98.1; O2SAT 100
[2017-06-21 13:29] VITALS: O2SAT 98
[2017-06-21] MEDS: ONDANSETRON ODT 4 MG TAB PO PRN ×2 (15:00→20:59)
[2017-06-21] MEDS: ACETAMINOPHEN/HYDROcodone 325 MG/10 MG TAB PO PRN (15:00)
[2017-06-21 15:55] VITALS: BP 109/76; PULSE 96; RESP 17; TEMP 97.7; O2SAT 100
[2017-06-21 20:32] VITALS: BP 137/94; PULSE 93; RESP 17; TEMP 98; O2SAT 100
[2017-06-21] MEDS: ZOLPIDEM TARTRATE 10 MG TAB PO PRN (22:50)
[2017-06-22] MEDS: INSULIN NovoLIN REGULAR SUPPLEMENTAL SCALE SQ SCH ×4 (00:54→13:00)
[2017-06-22 01:10] VITALS: BP 140/72; PULSE 75; RESP 17; TEMP 97.8; O2SAT 100
[2017-06-22] MEDS: CHLORHEXIDINE GLUCONATE 2 % 1 PACK (2 CLOTHS) TOP SCH (04:00)
[2017-06-22 04:20] VITALS: BP 152/85; PULSE 81; RESP 17; TEMP 97.9; O2SAT 100
[2017-06-22] MEDS: DEXT 5%-NACL 0.9% 1000 ML INJ 1,000 ML IV SCH ×2 (06:20→17:09)
[2017-06-22] MEDS: HEPARIN SODIUM - SQ 10,000 UNITS/ML VIAL SQ SCH ×2 (06:35→17:09)
[2017-06-22] MEDS: ONDANSETRON ODT 4 MG TAB PO PRN (06:35)
[2017-06-22 08:00] VITALS: BP 119/64; PULSE 89; RESP 18; TEMP 97.9; O2SAT 100
[2017-06-22] MEDS: SODIUM CHLORIDE 0.9% FLUSH 10 ML FLUSH IV FLUSH SCH ×2 (08:57→21:40)
[2017-06-22] MEDS: DOCUSATE SODIUM 50 MG/SENNA 8.6 MG TAB PO SCH ×2 (08:58→21:38)
[2017-06-22] MEDS: ACETAMINOPHEN/HYDROcodone 325 MG/10 MG TAB PO PRN (11:36)
[2017-06-22 11:48] VITALS: BP 119/69; PULSE 88; RESP 18; TEMP 98.8; O2SAT 100
--- NOTE | 2017-06-22 15:10 | HHI.PR ---
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 Objective Vitals Vital Signs Date Time Temp Pulse Resp B/P (MAP) Pulse Ox O2 Delivery O2 Flow Rate FiO2 06/22/17 11:48 98.8 88 18 119/69 (86) 100 06/22/17 08:00 97.9 89 18 119/64 (82) 100 06/22/17 04:20 97.9 81 17 152/85 (107) 100 06/22/17 01:10 97.8 75 17 140/72 (94) 100 06/21/17 20:32 98.0 93 17 137/94 (108) 100 06/21/17 15:55 97.7 96 17 109/76 (87) 100 I/O 06/21/17 06/21/17 06/21/17 06/22/17 06/22/17 06/22/17 07:00 15:00 23:00 07:00 15:00 23:00 Intake Total 240 ml 480 ml 360 ml 360 ml Output Total 475 ml 1200 ml Balance -235 ml -720 ml 360 ml 360 ml Intake Oral 240 ml 480 ml 360 ml 360 ml Output Urine Total 475 ml 1200 ml # Voids 1 2 2 # Bowel Movements 0 0 0 0 Result Diagram: 06/21/17 0555 06/21/17 0555 Imaging Last Impressions Cervical Spine MRI 06/18/17 0000 Signed Impressions: Service Date/Time: Sunday, June 18, 2017 15:45 - CONCLUSION: Mild degenerative changes. There is no significant spinal stenosis to account for the opportunity weakness. The density in the cervical cord is normal. René Serrano MD FACR Carotid Artery Ultrasound 06/18/17 0000 Signed Impressions: Service Date/Time: Sunday, June 18, 2017 18:34 - CONCLUSION: 1. Minimal plaque in the carotid arteries bilaterally without hemodynamically significant stenosis. Vertebral artery flow antegrade. Mychal Del Rosario MD Brain MRI 06/18/17 0000 Signed Impressions: Service Date/Time: Sunday, June 18, 2017 10:28 - CONCLUSION: Negative exam. Kwesi Campoverde MD Head CT 06/17/17 [id number] Signed Impressions: Service Date/Time: May 18:45 - CONCLUSION: No acute intracranial abnormalities are demonstrated. Rodrigo Rodriguez MD Chest X-Ray 06/17/17 [id number] Signed Impressions: Service Date/Time: May 19:11 - CONCLUSION: No evidence of acute cardiopulmonary disease. Rodrigo Rodriguez MD Objective Remarks GENERAL: NAD SKIN: Warm and dry. HEAD: Normocephalic. EYES: No scleral icterus. No injection or drainage. NECK: Supple, trachea midline. No JVD or lymphadenopathy. CARDIOVASCULAR: Regular rate and rhythm without murmurs, gallops, or rubs. RESPIRATORY: Breath sounds equal bilaterally. No accessory muscle use. GASTROINTESTINAL: Abdomen soft, non-tender, nondistended. MUSCULOSKELETAL: No cyanosis, or edema. 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 No CVA tenderness. Procedures 06/17/16 attempted placement of internal jugular central line and attempted stent of femoral central line, neither were successful A/P Problem List: (1) Right arm weakness ICD Code: R29.898 - Other symptoms and signs involving the musculoskeletal system (2) Encephalopathy ICD Code: G93.40 - Encephalopathy, unspecified (3) Diabetes mellitus ICD Code: E11.9 - Type 2 diabetes mellitus without complications Assessment and Plan 41 years old female with 1. Encephalopathy: Resolved. 2. Diabetes mellitus: Monitor Accu-Cheks and cover with sliding scale insulin. 3. History of cauda equina syndrome: Patient has chronic right lower extremity weakness. 4. History of epilepsy: Patient states that she has been under [facility] hospice care for epilepsy. Appreciate neurology recommendations. Patient had been on Depakote 5. Hypokalemia: Improved. 6. Right upper extremity weakness: Cervical spine MRI is negative. We'll have occupational therapy work with the patient. Appreciate neurology recommendations and thinks patient may have psychosomatic intention. 7. DVT prophylaxis: SCDs, heparin. 8. Constipation Resolved with stool softener Bradley Brady MD Jun 22, 2017 15:10
[2017-06-22 16:00] VITALS: BP 119/67; PULSE 87; RESP 18; TEMP 98.9; O2SAT 99
[2017-06-22 20:05] VITALS: BP 121/79; PULSE 85; RESP 17; TEMP 98.2; O2SAT 100
[2017-06-22] MEDS: ZOLPIDEM TARTRATE 10 MG TAB PO PRN (21:38)
[2017-06-22] MEDS: ACETAMINOPHEN 325 MG TAB PO PRN (21:39)
[2017-06-23 00:05] VITALS: BP 116/71; PULSE 88; RESP 17; TEMP 98.1; O2SAT 99
[2017-06-23] MEDS: CHLORHEXIDINE GLUCONATE 2 % 1 PACK (2 CLOTHS) TOP SCH (04:00)
[2017-06-23 04:05] VITALS: BP 125/53; PULSE 85; RESP 17; TEMP 97.7; O2SAT 100
[2017-06-23] MEDS: HEPARIN SODIUM - SQ 10,000 UNITS/ML VIAL SQ SCH (05:35)
[2017-06-23 07:34] VITALS: BP 137/82; PULSE 112; RESP 18; TEMP 99.7; O2SAT 97
[2017-06-23] MEDS: SODIUM CHLORIDE 0.9% FLUSH 10 ML FLUSH IV FLUSH SCH (08:43)
[2017-06-23] MEDS: ONDANSETRON ODT 4 MG TAB PO PRN ×2 (08:43→13:19)
[2017-06-23] MEDS: DEXT 5%-NACL 0.9% 1000 ML INJ 1,000 ML IV SCH (08:43)
[2017-06-23] MEDS: DOCUSATE SODIUM 50 MG/SENNA 8.6 MG TAB PO SCH (09:21)
[2017-06-23] MEDS: ACETAMINOPHEN/HYDROcodone 325 MG/10 MG TAB PO PRN (09:22)
--- NOTE | 2017-06-23 11:00 | HHI.FF ---
Face to Face Verification Diagnosis: (1) Right arm weakness (2) Diabetes mellitus (3) Encephalopathy (4) Cauda equina syndrome Home Health Nursing Order: Signs/symptoms of disease process I have seen patient Christy Galindo on 06/23/17. My clinical findings support the need for the requested home health care services because: Deconditioned w/ increased weakness I certify that my clinical findings support that this patient is homebound because: Unsteady gait/balance Bradley Brady MD Jun 23, 2017 11:00
[2017-06-23 11:30] VITALS: BP 127/76; PULSE 88; RESP 19; TEMP 98.6; O2SAT 96
--- NOTE | 2017-06-23 13:09 | HHI.PR ---
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 She complains of MORIN. Patient states she would like to go home instead of SNF Objective Vitals Vital Signs Date Time Temp Pulse Resp B/P (MAP) Pulse Ox O2 Delivery O2 Flow Rate FiO2 06/23/17 11:30 98.6 88 19 127/76 (93) 96 06/23/17 07:34 99.7 112 18 137/82 (100) 97 06/23/17 04:05 97.7 85 17 125/53 (77) 100 06/23/17 00:05 98.1 88 17 116/71 (86) 99 06/22/17 20:05 98.2 85 17 121/79 (93) 100 06/22/17 16:00 98.9 87 18 119/67 (84) 99 I/O 06/22/17 06/22/17 06/22/17 06/23/17 06/23/17 06/23/17 07:00 15:00 23:00 07:00 15:00 23:00 Intake Total 360 ml 720 ml 360 ml 240 ml Output Total 2 ml Balance 360 ml 720 ml 360 ml 238 ml Intake Oral 360 ml 720 ml 360 ml 240 ml Output Urine Total 2 ml # Voids 2 6 1 # Bowel Movements 0 2 0 1 Result Diagram: 06/21/17 0555 06/21/17 0555 Imaging Last Impressions Cervical Spine MRI 06/18/17 0000 Signed Impressions: Service Date/Time: Sunday, June 18, 2017 15:45 - CONCLUSION: Mild degenerative changes. There is no significant spinal stenosis to account for the opportunity weakness. The density in the cervical cord is normal. René Serrano MD FACR Carotid Artery Ultrasound 06/18/17 0000 Signed Impressions: Service Date/Time: Sunday, June 18, 2017 18:34 - CONCLUSION: 1. Minimal plaque in the carotid arteries bilaterally without hemodynamically significant stenosis. Vertebral artery flow antegrade. Mychal Del Rosario MD Brain MRI 06/18/17 0000 Signed Impressions: Service Date/Time: Sunday, June 18, 2017 10:28 - CONCLUSION: Negative exam. Kwesi Campoverde MD Head CT [id number] Signed Impressions: Service Date/Time: May 18:45 - CONCLUSION: No acute intracranial abnormalities are demonstrated. Rodrigo Rodriguez MD Chest X-Ray [id number] Signed Impressions: Service Date/Time: May 19:11 - CONCLUSION: No evidence of acute cardiopulmonary disease. Rodrigo Rodriguez MD Objective Remarks GENERAL: NAD SKIN: Warm and dry. HEAD: Normocephalic. EYES: No scleral icterus. No injection or drainage. NECK: Supple, trachea midline. No JVD or lymphadenopathy. CARDIOVASCULAR: Regular rate and rhythm without murmurs, gallops, or rubs. RESPIRATORY: Breath sounds equal bilaterally. No accessory muscle use. GASTROINTESTINAL: Abdomen soft, non-tender, nondistended. MUSCULOSKELETAL: No cyanosis, or edema. 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 No CVA tenderness. Procedures 06/17/16 attempted placement of internal jugular central line and attempted stent of femoral central line, neither were successful A/P Problem List: (1) Right arm weakness ICD Code: R29.898 - Other symptoms and signs involving the musculoskeletal system (2) Encephalopathy ICD Code: G93.40 - Encephalopathy, unspecified (3) Diabetes mellitus ICD Code: E11.9 - Type 2 diabetes mellitus without complications Assessment and Plan 41 years old female with 1. Encephalopathy: Resolved. 2. Diabetes mellitus: Monitor Accu-Cheks and cover with sliding scale insulin. 3. History of cauda equina syndrome: Patient has chronic right lower extremity weakness. 4. History of epilepsy: Patient states that she has been under [facility] hospice care for epilepsy. Appreciate neurology recommendations. Continue Depakote 5. Hypokalemia: Improved. 6. Right upper extremity weakness: Cervical spine MRI is negative. Continue with OT/PT. Appreciate neurology recommendations and thinks patient may have psychosomatic intention. 7. DVT prophylaxis: SCDs, heparin. 8. Constipation Resolved with stool softener Bradley Brady MD Jun 23, 2017 13:09
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
[2017-06-23] MEDS ORDERED: ACET325T15 PO (13:13)
[2017-06-23] MEDS ORDERED: ZANT150T2 PO (15:47)
[2017-06-23] MEDS ORDERED: CYCL10TA PO (15:47)
[2017-06-23] MEDS ORDERED: METF500T PO (15:47)
[2017-06-23] MEDS ORDERED: OXYB5TAB8 PO (15:47)
[2017-06-23] MEDS ORDERED: GABA600T PO (15:47)
[2017-06-23] MEDS ORDERED: ZOLO100T PO (15:47)
[2017-06-23] MEDS ORDERED: GABAPENTIN 300 MG CAP PO SCH (18:00)
[2017-06-23] MEDS ORDERED: CYCLOBENZAPRINE HCL 10 MG TAB PO SCH (18:00)
[2017-06-23] MEDS ORDERED: OXYBUTYNIN CHLORIDE 5 MG TAB PO SCH (21:00)
[2017-06-23] MEDS ORDERED: FAMOTIDINE 20 MG TAB PO SCH (21:00)
[2017-06-24] MEDS ORDERED: SERTRALINE HCL 100 MG TAB PO SCH (09:00)
[2017-06-24] MEDS ORDERED: metFORMIN HCL 500 MG TAB PO SCH (09:00)
== END 2017-06-23 17:26 | disposition home health service (06) | DRG 72 ==
LOC: NEPE 17:38 → NEDA 19:30 → HIME 23:30 → N06B 06-20 06:37
PROVIDERS: ADMIT Hospitalist; ATTEND Hospitalist
DX: G93.40 Encephalopathy, unspecified (principal); E66.01 Morbid (severe) obesity due to excess calories; E11.9 Type 2 diabetes mellitus without complications; F32.9 Major depressive disorder, single episode, unspecified; F41.9 Anxiety disorder, unspecified; G83.11 Monoplegia of lower limb affecting right dominant side; F17.210 Nicotine dependence, cigarettes, uncomplicated; E87.6 Hypokalemia; G40.909 Epilepsy, unspecified, not intractable, without status epilepticus; K59.00 Constipation, unspecified; R11.0 Nausea; Z86.69 Personal history of other diseases of the nervous system and sense organs; R29.898 Other symptoms and signs involving the musculoskeletal system
CPT/HCPCS: 36556; 36600; 51702; 70450; 70551; 71045; 72141; 76937; 80048; 80053; 80307; 81001; 82140; 82550; 82552; 82805; 82948; 83735; 84100; 84443; 85025; 85610; 85730; 87040; 87641; 93005; 93880; 95819; J0131; J1644; J2060; J2405; J7042

== ENCOUNTER 2017-08-18 14:04 | Inpatient (IN) | payer OTHER ==
[~2017-08-18] VITALS: Ht 172.7 cm; Wt 90.0 kg
[~2017-08-18 14:04] MED LIST changes: +ACET325T15 PO; -CYCL-36 PO; +CYCL10TA PO; +GABA600T PO; -GLUCTAB PO; -HYDR10TA16 PO; -LOMO PO; +METF500T PO; -NEUR600T PO; -OXYB5TAB PO; +OXYB5TAB8 PO; -RANI150 PO; -SERT100 PO; +ZANT150T2 PO; -ZOFR4TAB PO; +ZOLO100T PO
[2017-08-18 14:09] VITALS: BP 157/88; PULSE 89; RESP 18; TEMP 98.2; O2SAT 100
[2017-08-18] MEDS ORDERED: SODIUM CHLORIDE 0.9% FLUSH 10 ML FLUSH IV FLUSH PRN ×2 (14:30→20:30)
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
--- NOTE | 2017-08-18 15:22 | RADRPT ---
EXAM DATE/TIME: 08/18/2017 15:03 [facility] COMPARISON: CT BRAIN W/O CONTRAST, June 17, 2017, 18:45. INDICATIONS : Altered mental status. RADIATION DOSE: 56.35 CTDIvol (mGy) MEDICAL HISTORY : Diabetes SURGICAL HISTORY : Non-responsive. ENCOUNTER: Initial ACUITY: 1 day PAIN SCALE: 0/10 LOCATION: cranial TECHNIQUE: Multiple contiguous axial images were obtained of the head. Using automated exposure control and adj ustment of the mA and/or kV according to patient size, radiation dose was kept as low as reasonably a chievable to obtain optimal diagnostic quality images. DICOM format image data is available electro nically for review and comparison. FINDINGS: CEREBRUM: The ventricles are normal for age. No evidence of midline shift, mass lesion, hemorrhage or acute in farction. No extra-axial fluid collections are seen. POSTERIOR FOSSA: The cerebellum and brainstem are intact. The 4th ventricle is midline. The cerebellopontine angle i s unremarkable. EXTRACRANIAL: The visualized portion of the orbits is intact. SKULL: The calvaria is intact. No evidence of skull fracture. CONCLUSION: Normal examination for a patient of this age. No significant change has occurred. Renan Bucio MD on August 18, 2017 at 15:19 Board Certified Radiologist. This report was verified electronically.
[2017-08-18] MEDS ORDERED: ATOR40TA16 PO (15:24)
[2017-08-18 15:34] LABS: AMORPHOUS SEDIMENT, URINE RARE; BACTERIA, URINE RARE /hpf; BILIRUBIN, URINE NEG (NEG); BLOOD, URINE TRACE (NEG); GLUCOSE,URINE NEG (NEG); KETONE, URINE NEG (NEG); NITRITE,URINE NEG (NEG); PH, URINE 8.5 (5.0-8.5); SQUAMOUS EPITHELIAL CELL URINE 4 /hpf (0-5); URINE COLOR LIGHT-YELLOW (YELLW/STRAW); URINE LEUKOCYTE ESTERASE NEG (NEG)
[2017-08-18 15:35] VITALS: BP 139/78; PULSE 90; RESP 16; O2SAT 100
[2017-08-18 16:39] LABS: ALBUMIN 2.9 GM/DL (3.4-5.0); ALT (GPT) 22 U/L (10-53); AST (GOT) 21 U/L (15-37); BLOOD UREA NITROGEN 6 MG/DL (7-18); CALCIUM 8.3 MG/DL (8.5-10.1); CHLORIDE 107 MEQ/L (98-107); CREATININE 0.67 MG/DL (0.50-1.00); GLOMERULAR FILTRATION RATE 119 ML/MIN (>89); GLUCOSE,RANDOM 86 MG/DL (74-106); SODIUM (NA) 140 MEQ/L (136-145)
[2017-08-18 16:44] LABS: ACETAMINOPHEN LESS THAN 2.0 MCG/ML (10.0-30.0); ALKALINE PHOSPHATASE 77 U/L (45-117); TOTAL BILIRUBIN ADULT 0.1 MG/DL (0.2-1.0); TOTAL PROTEIN 7.1 GM/DL (6.4-8.2); TROPONIN I LESS THAN 0.02 NG/ML (0.02-0.05)
[2017-08-18 18:40] LABS: AUTOMATED NEUTROPHIL # 2.9 TH/MM3 (1.8-7.7); BASOPHIL # 0.1 TH/MM3 (0-0.2); BASOPHIL % 0.9 % (0.0-2.0); EOSINOPHIL # 0.2 TH/MM3 (0-0.4); EOSINOPHIL % 3.9 % (0.0-4.0); HEMATOCRIT 38.6 % (35.0-46.0); HEMOGLOBIN 12.6 GM/DL (11.6-15.3); LYMPH % 34.2 % (9.0-44.0); LYMPHOCYTE # 2.1 TH/MM3 (1.0-4.8); MEAN CELL VOLUME 83.9 FL (80.0-100.0); MEAN CORPUSCULAR HEMOGLOBIN 27.4 PG (27.0-34.0); MEAN CORPUSCULAR HGB CONC 32.6 % (32.0-36.0); MEAN PLATELET VOLUME 8.5 FL (7.0-11.0); MONO % 14.1 % (0.0-8.0); MONOCYTE # 0.9 TH/MM3 (0-0.9); NEUT % 46.9 % (16.0-70.0); PLATELET COUNT 334 TH/MM3 (150-450); RED CELL DISTRIBUTION WIDTH 14.2 % (11.6-17.2); WHITE BLOOD COUNT 6.2 TH/MM3 (4.0-11.0)
[2017-08-18] MEDS ORDERED: GADODIAMIDE PF 287 MG/ML 20 ML VIAL (for RAD MRI) IVCONTRAST ONE ×2 (19:26→22:50)
[2017-08-18] MEDS ORDERED: NALOXONE HCL 0.4 MG/ML AMP IV PUSH PRN (20:30)
[2017-08-18] MEDS ORDERED: LORazepam 2 MG/ML VIAL IV PUSH PRN (20:30)
[2017-08-18] MEDS ORDERED: levETIRAcetam INJ 100 ML IV ONE (20:30)
[2017-08-18] MEDS ORDERED: ONDANSETRON HCL 4 MG/2 ML VIAL IVP PRN (20:30)
--- NOTE | 2017-08-18 20:31 | HHI.HP ---
[facility] Unknown Admission Diagnosis altered mental status Diagnoses: Chief Complaint: AMS Travel History International Travel<30 Days: No Contact w/Intl Traveler <30 Da: No Traveled to Known Affected Are: No History of Present Illness 41 y/o female with a history of seizures(not on any medication), DM, and CVA with previous right-sided paralysis presented to the ED via [facility] for altered mental status. Patient is unresponsive and only opens eyes to painful stimuli. Mom is at bedside and is able to provide history and some of the patient's story line. Patient was at home today, eating breakfast normally and when her mom went to the store she was called and the patient's daughter whose states that while the patient was using the commode and went unresponsive in her life alert button was pushed and [facility]AC was called. Mom states in May she was diagnosed with seizures, but is unsure if she was placed on seizure medications and she has not followed up with a neurologist. While in the emergency room mom states patient had 2 episodes of jerking/shaking movements which she thought was seizure activity. Patient does have a caregiver named Viviana who states she is not on any seizure medications at home, and is going to bring in patient's medication list. Review of systems is limited due to patient's level of consciousness. Patient only opens eyes to voice and pain, she does not withdrawal any extremities to pain and no spontaneous movement noted on examination. Mom does not think patient has been sick or complaining of any other symptoms prior to today. Review of Systems ROS Limitations: Altered Mental Status Past Family Social History Past Medical History cauda equina syndrome Diabetes Anxiety Depression Past Surgical History Lumbar spine surgery Reported Medications Reported Meds & Active Scripts Active Eq Acetaminophen (Acetaminophen) 325 Mg Tab 650 Mg PO Q4H PRN Reported Atorvastatin (Atorvastatin Calcium) 40 Mg Tab 40 Mg PO HS Zoloft (Sertraline HCl) 100 Mg Tab 100 Mg PO DAILY Zantac (Ranitidine HCl) 150 Mg Tab 150 Mg PO BID Ditropan (Oxybutynin Chloride) 5 Mg Tab 5 Mg PO Q12HR Metformin (Metformin HCl) 500 Mg Tab 500 Mg PO DAILY With a meal Gabapentin 600 Mg Tab 600 Mg PO TID Flexeril (Cyclobenzaprine HCl) 10 Mg Tab 10 Mg PO TID Allergies: Coded Allergies: meloxicam (Unverified Allergy, Severe, Swelling, 01/05/17) promethazine (Unverified Allergy, Severe, EDEMA, 01/05/17) Active Ordered Medications Current Medications Medications (Trade) Dose Ordered Sig/Ninfa Route Start Time Stop Time Status Last Admin Potassium Chloride/Dextrose/ Sod Cl 1,000 ml @ 100 mls/hr Q10H IV 08/18/17 21:00 (NS Flush) 2 ml UNSCH PRN IV FLUSH 08/18/17 20:30 (NS Flush) 2 ml BID IV FLUSH 08/18/17 21:00 (Zofran Inj) 4 mg Q6H PRN IVP 08/18/17 20:30 (Narcan Inj) 0.4 mg UNSCH PRN IV PUSH 08/18/17 20:30 (Keppra) 500 mg Q12HR PO 08/19/17 09:00 (Ativan Inj) 1 mg Q15M PRN IV PUSH 08/18/17 20:30 (D50w (Vial) Inj) 50 ml UNSCH PRN IV PUSH 08/18/17 20:45 (Glucagon Inj) 1 mg UNSCH PRN OTHER 08/18/17 20:45 Family History Mom: Alopecia, hypertension Social History Tobacco use:1/2 PPD Alcohol use: Denies Physical Exam Vital Signs Vital Signs Date Time Temp Pulse Resp B/P (MAP) Pulse Ox O2 Delivery O2 Flow Rate FiO2 08/18/17 15:35 90 16 139/78 (98) 100 08/18/17 14:10 100 Room Air 08/18/17 14:09 98.2 89 18 157/88 (111) 100 Physical Exam GENERAL: This is a well-nourished, well-developed patient, who is lethargic SKIN: No rashes, ecchymoses or lesions. Cool and dry. HEAD: Atraumatic. Normocephalic. EYES: Pupils equal round and reactive. ENT: Nose without bleeding, purulent drainage or septal hematoma. Airway patent. NECK: Trachea midline. No JVD or lymphadenopathy. CARDIOVASCULAR: Regular rate and rhythm without murmurs, gallops, or rubs. RESPIRATORY: Clear to auscultation. Breath sounds equal bilaterally. No wheezes , rales, or rhonchi. GASTROINTESTINAL: Abdomen soft, non-tender, nondistended. MUSCULOSKELETAL: Extremities without clubbing, cyanosis, or edema. No calf tenderness. NEUROLOGICAL: Lethargic, opens eyes to voice and pain. Flaccid 4. Laboratory Laboratory Tests Test 08/18/17 14:25 08/18/17 15:30 White Blood Count 6.2 Red Blood Count 4.60 Hemoglobin 12.6 Hematocrit 38.6 Mean Corpuscular Volume 83.9 Mean Corpuscular Hemoglobin 27.4 Mean Corpuscular Hemoglobin Concent 32.6 Red Cell Distribution Width 14.2 Platelet Count 334 Mean Platelet Volume 8.5 Neutrophils (%) (Auto) 46.9 Lymphocytes (%) (Auto) 34.2 Monocytes (%) (Auto) 14.1 Eosinophils (%) (Auto) 3.9 Basophils (%) (Auto) 0.9 Neutrophils # (Auto) 2.9 Lymphocytes # (Auto) 2.1 Monocytes # (Auto) 0.9 Eosinophils # (Auto) 0.2 Basophils # (Auto) 0.1 CBC Comment DIFF FINAL Differential Comment Urine Color LIGHT-YELLOW Urine Turbidity CLEAR Urine pH 8.5 Urine Specific [place] 1.007 Urine Protein NEG Urine Glucose (UA) NEG Urine Ketones NEG Urine Occult Blood TRACE Urine Nitrite NEG Urine Bilirubin NEG Urine Urobilinogen LESS THAN 2.0 Urine Leukocyte Esterase NEG Urine RBC LESS THAN 1 Urine WBC 1 Urine Squamous Epithelial Cells 4 Urine Amorphous Sediment RARE Urine Bacteria RARE Microscopic Urinalysis Comment CATH-CULTURE IND Urine Opiates Screen NEG Urine Barbiturates Screen NEG Urine Amphetamines Screen NEG Urine Benzodiazepines Screen NEG Urine Cocaine Screen NEG Urine Cannabinoids Screen NEG Blood Urea Nitrogen 6 Creatinine 0.67 Random Glucose 86 Total Protein 7.1 Albumin 2.9 Calcium Level 8.3 Alkaline Phosphatase 77 Aspartate Amino Transf (AST/SGOT) 21 Alanine Aminotransferase (ALT/SGPT) 22 Total Bilirubin 0.1 Sodium Level 140 Potassium Level 3.6 Chloride Level 107 Carbon Dioxide Level 29.0 Anion Gap 4 Estimat Glomerular Filtration Rate 119 Troponin I LESS THAN 0.02 Salicylates Level LESS THAN 1.7 Acetaminophen Level LESS THAN 2.0 Ethyl Alcohol Level LESS THAN 3 Date/Time Source Procedure Growth Status 08/18/17 14:25 Urine Catheterized Urine Urine Culture Pending Worksheet Result Diagram: 08/18/17 1425 08/18/17 1530 Imaging Last Impressions Head CT 08/18/17 1417 Signed Impressions: Service Date/Time: Friday, August 18, 2017 15:03 - CONCLUSION: Normal examination for a patient of this age. No significant change has occurred. MD Janee Baltazar VTE Risk Assessment Caprini VTE Risk Assessment: Mod/High Risk (score >= 2) Caprini Risk Assessment Model Point Value = 1 Point Value = 2 Point Value = 3 Point Value = 5 Age 41-60 Minor surgery BMI > 25 kg/m2 Swollen legs Varicose veins or History of unexplained or recurrent spontaneous Oral contraceptives or hormone replacement Sepsis (< 1 month) Serious lung disease, including pneumonia (< 1 month) Abnormal pulmonary function Acute myocardial infarction Congestive heart failure (< 1 month) History of inflammatory bowel disease Medical patient at bed rest Age 61-74 Arthroscopic surgery Major open surgery (> 45 min) Laparoscopic surgery (> 45 min) Malignancy Confined to bed (> 72 hours) Immobilizing plaster cast Central venous access Age >= 75 History of VTE Family history of VTE Factor V Leiden Prothrombin [id number] Lupus anticoagulant Anticardiolipin antibodies Elevated serum homocysteine Heparin-induced thrombocytopenia Other congenital or acquired thrombophilia Stroke (< 1 month) Elective arthroplasty Hip, pelvis, or leg fracture Acute spinal cord injury (< 1 month) Prophylaxis Regimen Total Risk Factor Score Risk Level Prophylaxis Regimen 0-1 Low Early ambulation 2 Moderate Order ONE of the following: *Sequential Compression Device (SCD) *Heparin 5000 units SQ BID 3-4 Higher Order ONE of the following medications: *Heparin 5000 units SQ TID *Enoxaparin/Lovenox 40 mg SQ daily (WT < 150 kg, CrCl > 30 mL/min) *Enoxaparin/Lovenox 30 mg SQ daily (WT < 150 kg, CrCl > 10-29 mL/min) *Enoxaparin/Lovenox 30 mg SQ BID (WT < 150 kg, CrCl > 30 mL/min) AND/OR *Sequential Compression Device (SCD) 5 or more Highest Order ONE of the following medications: *Heparin 5000 units SQ TID (Preferred with Epidurals) *Enoxaparin/Lovenox 40 mg SQ daily (WT < 150 kg, CrCl > 30 mL/min) *Enoxaparin/Lovenox 30 mg SQ daily (WT < 150 kg, CrCl > 10-29 mL/min) *Enoxaparin/Lovenox 30 mg SQ BID (WT < 150 kg, CrCl > 30 mL/min) AND *Sequential Compression Device (SCD) Assessment and Plan Problem List: (1) Seizures ICD Code: R56.9 - Unspecified convulsions Status: Acute (2) Encephalopathy ICD Code: G93.40 - Encephalopathy, unspecified Status: Acute (3) Diabetes mellitus ICD Code: E11.9 - Type 2 diabetes mellitus without complications Status: Chronic Assessment and Plan 41 y/o female with a history of seizures(not on any medication), DM, and CVA with previous right-sided paralysis presented to the ED via [facility] for altered mental status. Encephalopathy, suspect related to seizures, patient is currently only opens eyes to voice and pain, states she witnessed 2 episodes of shaking movements Head CT reviewed and shows no abnormalities, toxicology screen is negative -EEG ordered -MRI brain ordered -Consult neurology for recommendations -Keppra IV ordered and twice a day until recommendations by neurology -Seizure precautions -Neuro checks -PT/OT -At this time cannot be ruled out if patient is truly having altered mental status per ER physician they feel patient is exaggerating her symptoms but upon examination this cannot be ruled out. Diabetes, chronic -Hold oral medications -Accu-Cheks with SSI Anxiety/depression -Consult psych for recommendations as ER physician feels the patient is exaggerating her symptoms. DVT prophylaxis: SCDs, hold chemical prophylaxis until MRI completed Discussed Condition With patient, Patients mom and ED physician Problem Qualifiers (1) Diabetes mellitus: Qualified Codes: E11.9 - Type 2 diabetes mellitus without complications Gayatri Dias Aug 18, 2017 20:31
[2017-08-18] MEDS ORDERED: DEXTROSE 50% IN WATER 50 ML VIAL(D50) IV PUSH PRN (20:45)
[2017-08-18] MEDS ORDERED: GLUCAGON 1 MG/ML VIAL OTHER PRN (20:45)
[2017-08-18] MEDS: SODIUM CHLORIDE 0.9% FLUSH 10 ML FLUSH IV FLUSH SCH (21:00)
[2017-08-18 21:14] VITALS: BP 155/79; PULSE 89; RESP 16; TEMP 99.1; O2SAT 100
--- NOTE | 2017-08-18 22:51 | RADRPT ---
EXAM DATE/TIME: 08/18/2017 22:01 [place] COMPARISON: MRI BRAIN W/O CONTRAST, June 18, 2017, 10:28. CT BRAIN W/O CONTRAST, August 18, 2017, 15:03. INDICATIONS : Altered mental status. Seizures CONTRAST: 18 cc Omniscan (gadodiamide) IV MEDICAL HISTORY : CVA, Chronic Back pain, Ovarian Cyst, Seizures, Anxiety SURGICAL HISTORY : section. Spinal sx ENCOUNTER: Initial ACUITY: 1 day PAIN SCORE: 0/10 LOCATION: Brain TECHNIQUE: Multiplanar, multisequence MRI of the brain was performed both prior to and following the administrat ion of paramagnetic contrast. FINDINGS: CEREBRUM: The ventricles are normal for age. No evidence of midline shift, mass lesion, hemorrhage or acute in farction. No extraaxial fluid collections are seen. The pituitary gland and suprasellar cistern are normal in configuration. There is minimal asymmetry to the hippocampal regions with the right side a ppearing slightly smaller than the left side. This configuration is unchanged. WHITE MATTER: No significant signal abnormalities are seen in the white matter. POSTERIOR FOSSA: The cerebellum and brainstem are intact. The 4th ventricle is midline. The cerebellopontine angle is unremarkable. The cerebellar tonsils are normal in position. DIFFUSION IMAGING: No focal areas of restricted diffusion are seen. No evidence of acute infarction. EXTRACRANIAL: The visualized portions of the orbits and paranasal sinuses are unremarkable. POST-CONTRAST: No abnormal areas of parenchymal or dural enhancement. No evidence of blood-brain barrier breakdown. CONCLUSION: No acute disease. Rodrigo Sam MD on August 18, 2017 at 22:46 Board Certified Radiologist. This report was verified electronically.
[2017-08-18] MEDS: D5-1/2 NS + KCL 20 MEQ INJ 1,000 ML IV SCH (23:09)
[2017-08-18 23:40] VITALS: BP 124/72; PULSE 98; RESP 16; TEMP 99.1; O2SAT 98
[2017-08-19 03:18] VITALS: BP 131/77; PULSE 91; RESP 16; TEMP 98.3; O2SAT 100
[2017-08-19] MEDS ORDERED: HEPARIN SODIUM - SQ 10,000 UNITS/ML VIAL SQ SCH (06:00)
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
[2017-08-19 08:52] VITALS: BP 122/73; PULSE 85; RESP 18; TEMP 98.3; O2SAT 100
[2017-08-19] MEDS: OXYBUTYNIN CHLORIDE 5 MG TAB PO SCH ×2 (09:00→21:00)
[2017-08-19] MEDS: SERTRALINE HCL 100 MG TAB PO SCH (09:00)
[2017-08-19] MEDS: levETIRAcetam 500 MG TAB PO SCH ×2 (09:00→21:00)
[2017-08-19] MEDS: FAMOTIDINE 20 MG TAB PO SCH ×2 (09:00→21:00)
[2017-08-19] MEDS: SODIUM CHLORIDE 0.9% FLUSH 10 ML FLUSH IV FLUSH SCH ×2 (09:00→21:00)
--- NOTE | 2017-08-19 10:28 | HHI.PR ---
Subjective Remarks Patient with altered mental status. Patient seen and examined. Multiple family members are at the bedside. Patient is nonverbal but will blink her eyes to yes and no questions, once for now on twice for yes. She does not follow any commands. She is flaccid in all extremities. Patient is wheelchair bound at home. She is able to move the right leg some. Family denies any fever , chills, recent illness or new medical complaints. Daughter states patient was sitting on the commode when she suddenly became unresponsive and slumped forward. Daughter pushed the life alert button and [facility] was contacted. Daughter does report patient with slurred speech prior to the event. Objective Vitals Vital Signs Date Time Temp Pulse Resp B/P (MAP) Pulse Ox O2 Delivery O2 Flow Rate FiO2 08/19/17 08:52 98.3 85 18 122/73 (89) 100 08/19/17 03:18 98.3 91 16 131/77 (95) 100 08/18/17 23:40 99.1 98 16 124/72 (89) 98 08/18/17 21:14 99.1 89 16 155/79 (104) 100 08/18/17 15:35 90 16 139/78 (98) 100 08/18/17 14:10 100 Room Air 08/18/17 14:09 98.2 89 18 157/88 (111) 100 I/O 08/18/17 08/18/17 08/18/17 08/19/17 08/19/17 08/19/17 07:00 15:00 23:00 07:00 15:00 23:00 # Voids 1 Result Diagram: 08/18/17 1425 08/18/17 1530 Imaging Last Impressions Head CT 08/18/17 1417 Signed Impressions: Service Date/Time: Friday, August 18, 2017 15:03 - CONCLUSION: Normal examination for a patient of this age. No significant change has occurred. Renan Bucio MD Brain MRI 08/18/17 0000 Signed Impressions: Service Date/Time: Friday, August 18, 2017 22:01 - CONCLUSION: No acute disease. Rodrigo Sam MD Objective Remarks GENERAL: This is a well-nourished, well-developed female patient, INAD. Nonverbal. Appears locked in. Will blink eyes to answer yes and no questions. She does not follow any commands. Multiple family members at the bedside. SKIN: No rashes, ecchymoses or lesions. Cool and dry. HEAD: Atraumatic. Normocephalic. EYES: Pupils equal round and reactive. Sclera anicteric. ENT: Nose without bleeding or purulent drainage. Airway patent. MMM. NECK: Trachea midline. CARDIOVASCULAR: Regular rate and rhythm without murmurs, gallops, or rubs. RESPIRATORY: Clear to auscultation. Breath sounds equal bilaterally. No wheezes , rales, or rhonchi. GASTROINTESTINAL: Abdomen soft, non-tender, nondistended. MUSCULOSKELETAL: Extremities without clubbing, cyanosis, or edema. No calf tenderness elicited. NEUROLOGICAL: Opens eyes to voice. Will blink once for no and twice for yes. Flaccid 4. Medications and IVs Current Medications Medications (Trade) Dose Ordered Sig/Ninfa Route Start Time Stop Time Status Last Admin Potassium Chloride/Dextrose/ Sod Cl 1,000 ml @ 100 mls/hr Q10H IV 08/18/17 21:00 08/18/17 23:09 (NS Flush) 2 ml UNSCH PRN IV FLUSH 08/18/17 20:30 (NS Flush) 2 ml BID IV FLUSH 08/18/17 21:00 (Zofran Inj) 4 mg Q6H PRN IVP 08/18/17 20:30 08/18/17 21:48 (Narcan Inj) 0.4 mg UNSCH PRN IV PUSH 08/18/17 20:30 (Keppra) 500 mg Q12HR PO 08/19/17 09:00 (Ativan Inj) 1 mg Q15M PRN IV PUSH 08/18/17 20:30 (D50w (Vial) Inj) 50 ml UNSCH PRN IV PUSH 08/18/17 20:45 (Glucagon Inj) 1 mg UNSCH PRN OTHER 08/18/17 20:45 (Lipitor) 40 mg HS PO 08/19/17 21:00 (Ditropan) 5 mg Q12HR PO 08/19/17 09:00 (Zoloft) 100 mg DAILY PO 08/19/17 09:00 (Pepcid) 20 mg BID PO 08/19/17 09:00 A/P Problem List: (1) Seizures ICD Code: R56.9 - Unspecified convulsions Status: Acute (2) Encephalopathy ICD Code: G93.40 - Encephalopathy, unspecified Status: Acute (3) Diabetes mellitus ICD Code: E11.9 - Type 2 diabetes mellitus without complications Status: Chronic Assessment and Plan 41 y/o female with a history of seizures(not on any medication), DM, and CVA with previous right-sided paralysis presented to the ED via [facility] for altered mental status. Encephalopathy, suspect related to seizures Head CT reviewed and shows no abnormalities, toxicology screen is negative UDS negative -Neurology following, appreciate recommendations. Workup in progress. -EEG and 2D echo ordered -MRI brain unremarkable, images reviewed by sd Mayank LUX ordered and twice a day until recommendations by neurology -Seizure precautions -Neuro checks -PT/OT -ST swallow evaluation -Continue to hold all sedating medications -At this time cannot be ruled out if patient is truly having altered mental status per ER physician they feel patient is exaggerating her symptoms but upon examination this cannot be ruled out. -Obtain TSH and B12 level Bacteruria -patient is asymptomatic -She is afebrile, white count is within normal limits. No indication to begin antibiotics at this time. -Will follow up on final urine culture results Diabetes, chronic -Hold oral medications -blood sugar 101 this am -Accu-Cheks with SSI Anxiety/depression -Consult psych for recommendations as ER physician feels the patient is exaggerating her symptoms. DVT prophylaxis: SCDs, Heparin sq discontinued by Dr. Angelo Discharge Planning Discharge pending completion of workup, neurology and psychiatry clearance Problem Qualifiers (1) Diabetes mellitus: Qualified Codes: E11.9 - Type 2 diabetes mellitus without complications Jacqui Bah Aug 19, 2017 10:28
[2017-08-19 11:49] VITALS: BP 115/63; PULSE 80; RESP 18; TEMP 98.5; O2SAT 99
--- NOTE | 2017-08-19 13:32 | PD.PSY.CON ---
Provisional Diagnosis Admission Date Aug 18, 2017 at 19:25 Magnet I. Adjustment disorder with depressed mood and anxiety, R/O functional neurological symptom disorder Magnet II. Deferred Magnet III. Diabetes, History of Present Illness Service Psychiatry Consult Requested By Medical Reason for Consult Anxiety Primary Care Physician Unknown HPI The patient is a 41 -[place] woman, domiciled alone, single, she has an adult daughter, without no previous psychiatric history, no prepsychotic hospitalizations, no previous suicidal attempts, with a medical history of seizures(not on any medication), DM, and CVA with previous right-sided paralysis presented to the ED via [facility] for altered mental status. Patient was at home today, eating breakfast normally and when her mom went to the store she was called and the patient's daughter whose states that while the patient was using the commode and went unresponsive in her life alert button was pushed and [facility] was called. Mom states in May she was diagnosed with seizures, but is unsure if she was placed on seizure medications and she has not followed up with a neurologist. While in the emergency room mom states patient had 2 episodes of jerking/shaking movements which she thought was seizure activity. Patient does have a caregiver named Viviana who states she is not on any seizure medications at home, and is going to bring in patient's medication list. Review of systems is limited due to patient's level of consciousness. Patient only opens eyes to voice and pain, she does not withdrawal any extremities to pain and no spontaneous movement noted on examination. Mom does not think patient has been sick or complaining of any other symptoms prior to today. Medical workup so far has been negative, neurology has suggested that the patient may have a psychiatric condition that might account for current presentation. EEG is pending. On psychiatric evaluation, the patient is mute, staring, not responsive. He many times during my evaluation she becomes tearful , but does not respond. As per family members, present during most part of the interview, her mother and her daughter, the patient has never had any psychiatric illness in the past. They deny that the patient has been depressed has had any acute trauma recently. They say that the patient has been living her normal life, even the she has been a little bit anxious because her electronic wheelchair stopped working about a week ago. Review of Systems Constitutional: DENIES: Diaphoretic episodes, Fatigue, Fever, Weight gain, Weight loss, Chills, Dizziness, Change in appetite, Night Sweats Endocrine: DENIES: Abnorml menstrual pattern, Heat/cold intolerance, Polydipsia , Polyuria, Polyphagia Eyes: DENIES: Blurred vision, Diplopia, Eye inflammation, Eye pain, Vision loss , Photosensitivity, Double Vision Ears, nose, mouth, throat: DENIES: Tinnitus, Hearing loss, Vertigo, Nasal discharge, Oral lesions, Throat pain, Hoarseness, Ear Pain, Running Nose, Epistaxis, Sinus Pain, Toothache, Odynophagia Respiratory: DENIES: Apneas, Cough, Snoring, Wheezing, Hemoptysis, Sputum production, Shortness of breath Cardiovascular: DENIES: Chest pain, Palpitations, Syncope, Dyspnea on Exertion , PND, Lower Extremity Edema, Orthopnea, Claudication Gastrointestinal: DENIES: Abdominal pain, Black stools, Bloody stools, Constipation, Diarrhea, Nausea, Vomiting, Difficulty Swallowing, Anorexia Genitourinary: DENIES: Abnormal vaginal bleeding, Dysmenorrhea, Dyspareunia, Sexual dysfunction, Urinary frequency, Urinary incontinence, Urgency, Hematuria , Dysuria, Nocturia, Vaginal discharge Musculoskeletal: DENIES: Joint pain, Muscle aches, Stiffness, Joint Swelling, Back pain, Neck pain Integumentary: DENIES: Abnormal pigmentation, Pruritus, Rash, Nail changes, Breast masses, Breast skin changes, Nipple discharge Hematologic/lymphatic: DENIES: Bruising, Lymphadenopathy Immunologic/allergic: DENIES: Eczema, Urticaria Neurologic: COMPLAINS OF: Seizures, DENIES: Abnormal gait, Headache, Localized weakness, Paresthesias, Speech Problems, Tremor, Poor Balance Psychiatric: DENIES: Anxiety, Confusion, Mood changes, Depression, Hallucinations, Agitation, Suicidal Ideation, Homicidal Ideation, Delusions Past Family Social History Coded Allergies: meloxicam (Unverified Allergy, Severe, Swelling, 01/05/17) promethazine (Unverified Allergy, Severe, EDEMA, 01/05/17) Active Scripts Acetaminophen (Eq Acetaminophen) 325 Mg Tab, 650 MG PO Q4H Y for HEADACHE AND/ OR PAIN, #20 TAB Prov:Bradley Brady MD 06/23/17 Reported Medications Atorvastatin (Atorvastatin) 40 Mg Tab, 40 MG PO HS for Cholesterol Management, # 30 TAB 0 Refills 08/18/17 Sertraline (Zoloft) 100 Mg Tab, 100 MG PO DAILY, #1 TAB 0 Refills 06/23/17 Ranitidine (Zantac) 150 Mg Tab, 150 MG PO BID for Reduce Stomach Acid, #1 TAB 0 Refills 06/23/17 Oxybutynin (Ditropan) 5 Mg Tab, 5 MG PO Q12HR for Urinary Symptom Managemen, #1 TAB 0 Refills 06/23/17 Metformin (Metformin) 500 Mg Tab, 500 MG PO DAILY for Blood Sugar Management, # 1 TAB 0 Refills With a meal 06/23/17 Gabapentin (Gabapentin) 600 Mg Tab, 600 MG PO TID, #1 TAB 0 Refills 06/23/17 Cyclobenzaprine (Flexeril) 10 Mg Tab, 10 MG PO TID for Muscle Spasm, #1 TAB 0 Refills 06/23/17 Current Medications Medications (Trade) Dose Ordered Sig/Ninfa Route Start Time Stop Time Status Last Admin Potassium Chloride/Dextrose/ Sod Cl 1,000 ml @ 100 mls/hr Q10H IV 08/18/17 21:00 08/18/17 23:09 (NS Flush) 2 ml UNSCH PRN IV FLUSH 08/18/17 20:30 (NS Flush) 2 ml BID IV FLUSH 08/18/17 21:00 (Zofran Inj) 4 mg Q6H PRN IVP 08/18/17 20:30 08/18/17 21:48 (Narcan Inj) 0.4 mg UNSCH PRN IV PUSH 08/18/17 20:30 (Keppra) 500 mg Q12HR PO 08/19/17 09:00 (Ativan Inj) 1 mg Q15M PRN IV PUSH 08/18/17 20:30 (D50w (Vial) Inj) 50 ml UNSCH PRN IV PUSH 08/18/17 20:45 (Glucagon Inj) 1 mg UNSCH PRN OTHER 08/18/17 20:45 (Lipitor) 40 mg HS PO 08/19/17 21:00 (Ditropan) 5 mg Q12HR PO 08/19/17 09:00 (Zoloft) 100 mg DAILY PO 08/19/17 09:00 (Pepcid) 20 mg BID PO 08/19/17 09:00 Family Psych History No family psychiatric history Social History Patient was born and raised in [facility], she lives alone in her apartment, she is single, she has an adult daughter Physical Exam Vital Signs Vital Signs Date Time Temp Pulse Resp B/P (MAP) Pulse Ox O2 Delivery O2 Flow Rate FiO2 08/19/17 11:49 98.5 80 18 115/63 (80) 99 08/18/17 14:10 Room Air Lab Results Test 08/18/17 14:25 08/18/17 15:30 08/19/17 08:12 08/19/17 08:30 White Blood Count 6.2 TH/MM3 Red Blood Count 4.60 MIL/MM3 Hemoglobin 12.6 GM/DL Hematocrit 38.6 % Mean Corpuscular Volume 83.9 FL Mean Corpuscular Hemoglobin 27.4 PG Mean Corpuscular Hemoglobin Concent 32.6 % Red Cell Distribution Width 14.2 % Platelet Count 334 TH/MM3 Mean Platelet Volume 8.5 FL Neutrophils (%) (Auto) 46.9 % Lymphocytes (%) (Auto) 34.2 % Monocytes (%) (Auto) 14.1 % Eosinophils (%) (Auto) 3.9 % Basophils (%) (Auto) 0.9 % Neutrophils # (Auto) 2.9 TH/MM3 Lymphocytes # (Auto) 2.1 TH/MM3 Monocytes # (Auto) 0.9 TH/MM3 Eosinophils # (Auto) 0.2 TH/MM3 Basophils # (Auto) 0.1 TH/MM3 CBC Comment DIFF FINAL Differential Comment Urine Color LIGHT-YELLOW Urine Turbidity CLEAR Urine pH 8.5 Urine Specific [place] 1.007 Urine Protein NEG mg/dL Urine Glucose (UA) NEG mg/dL Urine Ketones NEG mg/dL Urine Occult Blood TRACE Urine Nitrite NEG Urine Bilirubin NEG Urine Urobilinogen LESS THAN 2.0 MG/DL Urine Leukocyte Esterase NEG Urine RBC LESS THAN 1 /hpf Urine WBC 1 /hpf Urine Squamous Epithelial Cells 4 /hpf Urine Amorphous Sediment RARE Urine Bacteria RARE /hpf Microscopic Urinalysis Comment CATH-CULTURE IND Urine Opiates Screen NEG Urine Barbiturates Screen NEG Urine Amphetamines Screen NEG Urine Benzodiazepines Screen NEG Urine Cocaine Screen NEG Urine Cannabinoids Screen NEG Blood Urea Nitrogen 6 MG/DL Creatinine 0.67 MG/DL Random Glucose 86 MG/DL Total Protein 7.1 GM/DL Albumin 2.9 GM/DL Calcium Level 8.3 MG/DL Alkaline Phosphatase 77 U/L Aspartate Amino Transf (AST/SGOT) 21 U/L Alanine Aminotransferase (ALT/SGPT) 22 U/L Total Bilirubin 0.1 MG/DL Sodium Level 140 MEQ/L Potassium Level 3.6 MEQ/L Chloride Level 107 MEQ/L Carbon Dioxide Level 29.0 MEQ/L Anion Gap 4 MEQ/L Estimat Glomerular Filtration Rate 119 ML/MIN Troponin I LESS THAN 0.02 NG/ML Salicylates Level LESS THAN 1.7 MG/DL Acetaminophen Level LESS THAN 2.0 MCG/ML Ethyl Alcohol Level LESS THAN 3 MG/DL Blood Gas Puncture Site RT RADIAL Blood Gas Patient Temperature 98.6 Blood Gas HCO3 26 mmol/L Blood Gas Base Excess 1.8 mmol/L Blood Gas Oxygen Saturation 95 % Arterial Blood pH 7.40 Arterial Blood Partial Pressure CO2 43 mmHg Arterial Blood Partial Pressure O2 83 mmHG Arterial Blood Oxygen Content 16.9 Vol % Arterial Blood Carboxyhemoglobin 1.2 % Arterial Blood Methemoglobin 0.7 % Blood Gas Hemoglobin 12.6 G/DL Oxygen Delivery Device ROOM AIR Blood Gas Inspired Oxygen 21 % Date/Time Source Procedure Growth Status 08/18/17 14:25 Urine Catheterized Urine Urine Culture - Preliminary Gram Negative Rupesh Group B Beta Strep Resulted Mental Status Examination Appearance: Appropriate Mental Status Exam Remarks Limited because the patient is mute Assessment & Plan Problem List: (1) Adjustment disorder with mixed anxiety and depressed mood ICD Codes: F43.23 - Adjustment disorder with mixed anxiety and depressed mood Assessment & Plan: At the moment of my psychiatric evaluation the patient is noncooperative, mute, no answering any question. The patient does not have any previous psychiatric history as per family, no previous suicidal attempts, they deny any recent traumatic extraordinary event in patient's life. Reading about current presentation, previous similar presentations, it seems to me like a neurological condition or seizures could be responsible, however, functional neurological symptoms disorder should be carefully ruled out. At this moment the patient does not meet criteria for involuntary psychiatric admission. She should continue neurological workup. Symptoms of functional neurological symptoms disorder usually remained spontaneously in 1 or 2 weeks. In case of function or neurological symptoms disorder, outpatient individual psychotherapy is highly recommended. I will follow up Assessment & Plan Estimated LOS: Julito Posadas MD Aug 19, 2017 13:31
--- NOTE | 2017-08-19 13:45 | EKG ---
Date Performed: 08/18/2017 Time Performed: 14:08:21 PTAGE: 41 years EKG: Sinus rhythm NONDIAGNOSTIC Q WAVES IN THE LATERAL LEADS AXIS HAS SHIFTED SLIGHTLY MORE TO THE LEFT THAN THE PRIOR TRACING BUT PROBABLY NO SIGNIFICANT CHANGE. PREVIOUS TRACING DOCTOR: Ravindra Juarez Interpretating Date/Time 08/19/2017 13:45:06
[2017-08-19 14:02] LABS: AUTOMATED NEUTROPHIL # 2.6 TH/MM3 (1.8-7.7); BASOPHIL % 0.7 % (0.0-2.0); EOSINOPHIL # 0.2 TH/MM3 (0-0.4); EOSINOPHIL % 3.5 % (0.0-4.0); HEMATOCRIT 39.8 % (35.0-46.0); HEMOGLOBIN 12.9 GM/DL (11.6-15.3); LYMPH % 35.6 % (9.0-44.0); LYMPHOCYTE # 1.9 TH/MM3 (1.0-4.8); MEAN CELL VOLUME 82.5 FL (80.0-100.0); MEAN CORPUSCULAR HEMOGLOBIN 26.8 PG (27.0-34.0); MEAN CORPUSCULAR HGB CONC 32.5 % (32.0-36.0); MEAN PLATELET VOLUME 7.8 FL (7.0-11.0); MONO % 11.1 % (0.0-8.0); MONOCYTE # 0.6 TH/MM3 (0-0.9); NEUT % 49.1 % (16.0-70.0); PLATELET COUNT 364 TH/MM3 (150-450); RED BLOOD COUNT 4.82 MIL/MM3 (4.00-5.30); RED CELL DISTRIBUTION WIDTH 14.6 % (11.6-17.2); WHITE BLOOD COUNT 5.2 TH/MM3 (4.0-11.0)
[2017-08-19 14:22] LABS: C-REACTIVE PROTEIN LESS THAN 0.29 MG/DL (0.00-0.30)
[2017-08-19 14:33] LABS: ALKALINE PHOSPHATASE 74 U/L (45-117); ALT (GPT) 23 U/L (10-53); AST (GOT) 19 U/L (15-37); BICARBONATE 27.4 MEQ/L (21.0-32.0); BLOOD UREA NITROGEN 4 MG/DL (7-18); CHLORIDE 107 MEQ/L (98-107); CREATININE 0.66 MG/DL (0.50-1.00); GLOMERULAR FILTRATION RATE 121 ML/MIN (>89); GLUCOSE,RANDOM 93 MG/DL (74-106); SODIUM (NA) 139 MEQ/L (136-145); TOTAL BILIRUBIN ADULT 0.3 MG/DL (0.2-1.0); TOTAL PROTEIN 7.1 GM/DL (6.4-8.2)
[2017-08-19 14:48] LABS: FOLATE 16.4 NG/ML (3.1-17.5)
--- NOTE | 2017-08-19 15:59 | ECHRPT ---
Indication: CVA/TIA CONCLUSIONS The left ventricular systolic function is normal with an estimated ejection fraction in the range of 55-60%. Wall thickness is measured at the upper limits of normal. Normal left ventricular size. Normal wall motion. There is mild tricuspid valve regurgitation. The estimated pulmonary arterial pressure is 31 mmHg. BP: 122 / 73 HR: 85 Rhythm: Sinus MEASUREMENTS (Male / Female) Normal Values Technical Quality: 2D ECHO LV Diastolic Diameter PLAX 4.8 cm 4.2 - 5.9 / 3.9 - 5.3 cm LV Systolic Diameter PLAX 3.6 cm IVS Diastolic Thickness 1.0 cm 0.6 - 1.0 / 0.6 - 0.9 cm LVPW Diastolic Thickness 1.0 cm 0.6 - 1.0 / 0.6 - 0.9 cm LV Relative Wall Thickness 0.4 LVOT Diameter 1.8 cm M-MODE Aortic Root Diameter MM 2.5 cm LA Systolic Diameter MM 3.0 cm LA Ao Ratio MM 1.2 AV Cusp Separation MM 1.9 cm DOPPLER AV Peak Velocity 141.0 cm/s AV Peak Gradient 8.0 mmHg LVOT Peak Velocity 127.0 cm/s LVOT Peak Gradient 6.5 mmHg AV Area Cont Eq pk 2.3 cm Mitral E Point Velocity 77.0 cm/s Mitral A Point Velocity 71.1 cm/s Mitral E to A Ratio 1.1 LV E' Lateral Velocity 10.4 cm/s Mitral E to LV E' Lateral Ratio 7.4 LV E' Septal Velocity 8.0 cm/s Mitral E to LV E' Septal Ratio 9.6 TR Peak Velocity 229.0 cm/s TR Peak Gradient 21.0 mmHg Right Atrial Pressure 10.0 mmHg Pulmonary Artery Systolic Pressu 31.0 mmHg Right Ventricular Systolic Press 31.0 mmHg PV Peak Velocity 117.0 cm/s PV Peak Gradient 5.5 mmHg FINDINGS LEFT VENTRICLE The left ventricular systolic function is normal with an estimated ejection fraction in the range of 55-60%. Wall thickness is measured at the upper limits of normal. Normal left ventricular size. Normal wall motion. RIGHT VENTRICLE Normal right ventricular size and systolic function. LEFT ATRIUM The left atrial size is normal. RIGHT ATRIUM The right atrial size is normal. ATRIAL SEPTUM Normal atrial septal thickness without atrial level shunting by limited color doppler interrogation. AORTA The aortic root and proximal ascending aorta are normal in size on limited imaging. MITRAL VALVE Structurally normal mitral valve. No mitral valve stenosis or regurgitation. AORTIC VALVE Trileaflet aortic valve. No aortic valve stenosis or regurgitation. TRICUSPID VALVE There is mild tricuspid valve regurgitation. The estimated pulmonary arterial pressure is 31 mmHg. PULMONARY VALVE No pulmonary valve regurgitation or stenosis. VESSELS The inferior vena cava is normal in size. PERICARDIUM No pericardial effusion. Ramesh Romo MD (Electronically Signed) Final Date:19 August 2017 15:58
[2017-08-19] MEDS: D5-1/2 NS + KCL 20 MEQ INJ 1,000 ML IV SCH (16:12)
[2017-08-19] MEDS ORDERED: Vancomycin Consult Pharmacy 1 EA OTHER SCH (16:15)
[2017-08-19] MEDS ORDERED: AMPICILLIN INJ 1,000 MG VIAL IV SCH (16:15)
[2017-08-19 17:20] VITALS: BP 117/67; PULSE 87; RESP 18; TEMP 98.8; O2SAT 100
[2017-08-19 17:42] LABS: BICARBONATE 26.4 MEQ/L (21.0-32.0); BLOOD UREA NITROGEN 5 MG/DL (7-18); CHLORIDE 106 MEQ/L (98-107); CREATININE 0.63 MG/DL (0.50-1.00); GLOMERULAR FILTRATION RATE 127 ML/MIN (>89); GLUCOSE,RANDOM 91 MG/DL (74-106); SODIUM (NA) 141 MEQ/L (136-145)
[2017-08-19 17:43] LABS: HEMOGLOBIN 12.5 GM/DL (11.6-15.3); MEAN CELL VOLUME 82.8 FL (80.0-100.0); MEAN CORPUSCULAR HEMOGLOBIN 27.3 PG (27.0-34.0); MEAN PLATELET VOLUME 7.7 FL (7.0-11.0); PLATELET COUNT 333 TH/MM3 (150-450); RED BLOOD COUNT 4.59 MIL/MM3 (4.00-5.30); RED CELL DISTRIBUTION WIDTH 14.1 % (11.6-17.2); WHITE BLOOD COUNT 5.5 TH/MM3 (4.0-11.0)
[2017-08-19 17:57] LABS: INTERNATIONAL NORMALIZED RATIO 1.1 RATIO; PROTHROMBIN TIME - PATIENT 11.4 SEC (9.8-11.6)
[2017-08-19] MEDS ORDERED: VANCOMYCIN INJ 1,500 MG in SODIUM CHLORID 0.9% 500 ML INJ 500 ML IV SCH (18:00)
[2017-08-19] MEDS: ACYCLOVIR INJ 900 MG in SODIUM CHLORIDE 0.9% INJ 150 ML IV SCH (18:00)
[2017-08-19] MEDS: SODIUM CHLOR 0.9% 1000 ML INJ 1,000 ML IV SCH (18:12)
[2017-08-19] MEDS: AMPICILLIN 1 GM/NS 100 ML IV SCH ×2 (18:13)
[2017-08-19 20:48] VITALS: BP 128/72; PULSE 92; RESP 18; TEMP 99; O2SAT 91
[2017-08-19] MEDS: ATORVASTATIN 40 MG TAB PO SCH (21:00)
[2017-08-19 23:39] LABS: RHEUMATOID FACTOR SCREEN NEGATIVE (NEGATIVE)
[2017-08-19 23:43] VITALS: BP 123/74; PULSE 85; RESP 18; TEMP 98.2; O2SAT 100
[2017-08-20] VITALS (7 sets, daily range): BP systolic 120–125; BP diastolic 65–75; PULSE 86–93; RESP 18; TEMP 98.2–99.1; O2SAT 100
[2017-08-20] MEDS: AMPICILLIN 1 GM/NS 100 ML IV SCH ×6 (00:08→12:00)
[2017-08-20] MEDS: SODIUM CHLOR 0.9% 1000 ML INJ 1,000 ML IV SCH ×2 (02:12→12:19)
[2017-08-20] MEDS: ACYCLOVIR INJ 900 MG in SODIUM CHLORIDE 0.9% INJ 150 ML IV SCH ×2 (02:17→10:26)
[2017-08-20] MEDS ORDERED: VANCOMYCIN INJ 1,500 MG in SODIUM CHLORID 0.9% 500 ML INJ 500 ML IV SCH ×2 (04:00→08:00)
--- NOTE | 2017-08-20 07:29 | HHI.PR ---
Subjective Remarks no major change nursing notes some movement of arms at times with turning grunted has not talked yet Objective Vital Signs Date Time Temp Pulse Resp B/P (MAP) Pulse Ox O2 Delivery O2 Flow Rate FiO2 08/20/17 04:57 89 08/20/17 04:02 98.2 87 18 120/70 (87) 100 08/20/17 01:29 91 08/19/17 23:43 98.2 85 18 123/74 (90) 100 08/19/17 20:48 99.0 92 18 128/72 (90) 91 08/19/17 17:20 98.8 87 18 117/67 (84) 100 08/19/17 11:49 98.5 80 18 115/63 (80) 99 08/19/17 08:52 98.3 85 18 122/73 (89) 100 I/O 08/19/17 08/19/17 08/19/17 08/20/17 08/20/17 08/20/17 07:00 15:00 23:00 07:00 15:00 23:00 # Voids 6 Result Diagram: 08/19/17 1718 08/19/17 1331 Objective Remarks opened eyes and looke my way initially with awakening her flaccid t/o no clonus mute Assessment and Plan Assessment and Plan imp randle neg eeg mri echo labs all nl plan is LP an dif this is nl then dc abt and recheck mri and eeg possiblilty would be prolonged postictal state or psychological iv keppra PT she was in [facility] for months after ls spine surgery due to rle weak and that is very unusual in itself i dw mom Florencio Angelo MD Aug 20, 2017 07:29
--- NOTE | 2017-08-20 07:57 | MG ---
cc: Paulie Orosco MD, PhD DATE OF THE STUDY: 08/19/2017. TEST NUMBER: [id number]. TECHNIQUE: 17-channel EEG. DESCRIPTION: The background activity is comprised of symmetrical alpha rhythm frequency 8-9 Hz. Amplitude is 10-20 microvolts. No lateralizing features were identified and no epileptiform features were identified. There is some muscle artifact present. Photic stimulation is done in a stepwise fashion with a normal driving response. INTERPRETATION: This is a normal EEG. Paulie Orosco MD, PhD [facility] , 04:54 PM , 05:03 PM
[2017-08-20] MEDS: SERTRALINE HCL 100 MG TAB PO SCH (09:00)
[2017-08-20] MEDS: FAMOTIDINE 20 MG TAB PO SCH ×2 (09:00→21:00)
[2017-08-20] MEDS: SODIUM CHLORIDE 0.9% FLUSH 10 ML FLUSH IV FLUSH SCH ×2 (09:00→21:00)
[2017-08-20] MEDS: OXYBUTYNIN CHLORIDE 5 MG TAB PO SCH ×2 (09:00→21:00)
[2017-08-20] MEDS: levETIRAcetam INJ 500 MG in SODIUM CHLORIDE 0.9% INJ 100 ML IV SCH ×2 (09:28→21:17)
[2017-08-20 10:22] LABS: BICARBONATE 25.4 MEQ/L (21.0-32.0); CALCIUM 8.1 MG/DL (8.5-10.1); CREATININE 0.55 MG/DL (0.50-1.00)
--- NOTE | 2017-08-20 13:37 | PD.RAD ---
Post Procedure Progress Note Pre Procedure Diagnosis: (1) Seizures (2) Encephalopathy (3) Altered mental status Post Procedure Diagnosis: (1) Altered mental status (2) Encephalopathy (3) Seizures Procedure Date: Aug 20, 2017 Supervising Radiologist: Kwesi Campoverde Proceduralist/Assist: Latisha Boss, RT(R)(CV), Jaime High RT(R) Anesthesia: Local Plan of Activity Patient to Unit: Other (ED) Patient Condition: Good See PACS Report for procedural detail/treatment Spinal Procedure Lumbar Puncture L3-L4 Fluid Removal (CCs): 17 Fluid Description: Clear Puncture Time: 13:08 Findings: 6 lumbar type vertebral bodies Kwesi Campoverde MD Aug 20, 2017 13:37
--- NOTE | 2017-08-20 13:43 | HHI.PR ---
Subjective Remarks Follow-up on patient with altered mental status. Patient seen and examined. Patient appears more alert today. She is still not speaking that has begun to grunt in response to questioning. She exhibits very small amount of movement in the left hand but is otherwise flaccid in all extremities. Mother is at the bedside. Objective Vitals Vital Signs Date Time Temp Pulse Resp B/P (MAP) Pulse Ox O2 Delivery O2 Flow Rate FiO2 08/20/17 11:59 99.1 86 18 121/72 (88) 100 08/20/17 08:21 98.8 87 18 125/75 (92) 100 08/20/17 08:03 92 08/20/17 04:57 89 08/20/17 04:02 98.2 87 18 120/70 (87) 100 08/20/17 01:29 91 08/19/17 23:43 98.2 85 18 123/74 (90) 100 08/19/17 20:48 99.0 92 18 128/72 (90) 91 08/19/17 17:20 98.8 87 18 117/67 (84) 100 I/O 08/19/17 08/19/17 08/19/17 08/20/17 08/20/17 08/20/17 07:00 15:00 23:00 07:00 15:00 23:00 # Voids 6 Result Diagram: 08/19/17 1718 08/20/17 0931 Imaging Last Impressions Head CT 08/18/17 1417 Signed Impressions: Service Date/Time: Friday, August 18, 2017 15:03 - CONCLUSION: Normal examination for a patient of this age. No significant change has occurred. Renan Bucio MD Brain MRI 08/18/17 0000 Signed Impressions: Service Date/Time: Friday, August 18, 2017 22:01 - CONCLUSION: No acute disease. Rodrigo Sam MD Objective Remarks GENERAL: This is a well-nourished, well-developed obese female patient, INAD. Few audible grunts in response to questioning. Will blink eyes to answer yes and no questions. Mother is at the bedside. SKIN: No rashes, ecchymoses or lesions. Cool and dry. HEAD: Atraumatic. Normocephalic. EYES: Pupils equal round and reactive. Sclera anicteric. ENT: Nose without bleeding or purulent drainage. Airway patent. MMM. NECK: Trachea midline. CARDIOVASCULAR: Regular rate and rhythm without murmurs, gallops, or rubs. RESPIRATORY: Clear to auscultation. Breath sounds equal bilaterally. No wheezes , rales, or rhonchi. GASTROINTESTINAL: Abdomen soft, non-tender, nondistended. MUSCULOSKELETAL: Extremities without clubbing, cyanosis, or edema. No calf tenderness elicited. NEUROLOGICAL: Opens eyes to voice. Will blink once for no and twice for yes. Flaccid 4 except for small movement noted in left hand when asked to squeeze. Medications and IVs Current Medications Medications (Trade) Dose Ordered Sig/Ninfa Route Start Time Stop Time Status Last Admin (NS Flush) 2 ml UNSCH PRN IV FLUSH 08/18/17 20:30 (NS Flush) 2 ml BID IV FLUSH 08/18/17 21:00 (Zofran Inj) 4 mg Q6H PRN IVP 08/18/17 20:30 08/18/17 21:48 (Narcan Inj) 0.4 mg UNSCH PRN IV PUSH 08/18/17 20:30 (Ativan Inj) 1 mg Q15M PRN IV PUSH 08/18/17 20:30 (D50w (Vial) Inj) 50 ml UNSCH PRN IV PUSH 08/18/17 20:45 (Glucagon Inj) 1 mg UNSCH PRN OTHER 08/18/17 20:45 (Lipitor) 40 mg HS PO 08/19/17 21:00 (Ditropan) 5 mg Q12HR PO 08/19/17 09:00 (Zoloft) 100 mg DAILY PO 08/19/17 09:00 (Pepcid) 20 mg BID PO 08/19/17 09:00 Acyclovir Sodium 900 mg/Sodium Chloride 150 ml @ 150 mls/hr Q8H IV 08/19/17 18:00 08/20/17 10:26 Pharmacy Profile Note 0 ml @ 0 mls/hr UNSCH OTHER 08/19/17 16:15 Sodium Chloride 1,000 ml @ 100 mls/hr Q10H IV 08/19/17 16:19 08/19/17 18:12 Miscellaneous Information SPECIFIC LAB TO BE DRAWN:VANCOMYCIN TROUGH DATE TO... ONCE ONCE .XX 08/21/17 05:45 08/21/17 05:46 Ampicillin Sodium 1000 mg/Sodium Chloride 100 ml @ 400 mls/hr Q6H IV 08/19/17 18:00 08/20/17 05:41 Vancomycin HCl 1500 mg/Sodium Chloride 515 ml @ 250 mls/hr Q12H IV 08/20/17 08:00 Levetriacetam 500 mg/Sodium Chloride 105 ml @ 420 mls/hr Q12HR IV 08/20/17 09:00 08/20/17 09:28 A/P Problem List: (1) Seizures ICD Code: R56.9 - Unspecified convulsions Status: Acute (2) Encephalopathy ICD Code: G93.40 - Encephalopathy, unspecified Status: Acute (3) Diabetes mellitus ICD Code: E11.9 - Type 2 diabetes mellitus without complications Status: Chronic Assessment and Plan 41 y/o female with a history of seizures(not on any medication), DM, and CVA with previous right-sided paralysis presented to the ED via [facility] for altered mental status. Encephalopathy, suspect related to seizures Head CT reviewed and shows no abnormalities, toxicology screen is negative UDS negative -Neurology following, appreciate recommendations. Workup negative. -For lumbar puncture today. Follow up on CSF studies. -on IV Keppra -started on IV Acyclovir, Vancomycin and Ampicillin by neurology -Seizure precautions -Neuro checks -PT/OT -ST swallow evaluation advanced to mechanical soft diet/thin liquid diet -Continue to hold all sedating medications Bacteruria -patient is asymptomatic -She is afebrile, white count is within normal limits. No indication to begin antibiotics at this time. -Will follow up on final urine culture results Diabetes, chronic -Hold oral medications -blood sugar 91 this am -Accu-Cheks with SSI Anxiety/depression -Psychiatry following, appreciate recommendations - possible functional neurologic symptoms disorder DVT prophylaxis: SCDs, Heparin sq discontinued by Dr. Angelo Discharge Planning Discharge pending completion of workup, neurology and psychiatry clearance Problem Qualifiers (1) Diabetes mellitus: Qualified Codes: E11.9 - Type 2 diabetes mellitus without complications Jacqui Bah Aug 20, 2017 13:43
[2017-08-20 14:25] LABS: ANA SCREEN POS (NEG)
--- NOTE | 2017-08-20 14:37 | MG ---
cc: Paulie Orosco MD, PhD Test #[id number] TECHNIQUE: A 17-channel EEG. DESCRIPTION: The background rhythm reveals a symmetrical alpha rhythm, frequency of 8 Hz. There is also sleep activity identified in terms of sleep spindles present. Occasional vertex sharp waves as well, which I think is most likely sleep-related activity. I do not see any true epileptiform discharges and there are no lateralizing features. Photic is normal. INTERPRETATION: Normal awake normal awake and asleep EEG. Paulie Orosco MD, PhD [facility] , 02:27 PM , 02:36 PM
[2017-08-20 14:58] LABS: TOTAL PROTEIN,CSF 32.9 MG/DL (15.0-45.0)
[2017-08-20 15:39] LABS: RBC TUBE #1 3 /MM3; SUPERNATE COLOR TUBE #1 CLEAR (CLEAR); WBC TUBE #1 0 /MM3 (0-10)
[2017-08-20 15:40] LABS: CSF LYMPHOCYTES 0 %; CSF NEUTROPHILS 0 %
--- NOTE | 2017-08-20 15:49 | RADRPT ---
EXAM DATE/TIME: 08/20/2017 11:55 [facility] COMPARISON: No previous studies available for comparison. INDICATIONS : Patient presents with altered mental status in need of lumbar puncture with opening pressures for bob lutation. MEDICAL HISTORY : Cauda equina syndrome Diabetes Anxiety Depression Seizure SURGICAL HISTORY : Lumbar spine surgery ENCOUNTER: Initial ACUITY: 2 days PAIN SCORE: 0/10 LOCATION: N/A LUMBAR PUNCTURE TIME: 1308 hours FLUORO TIME: 0.8 minutes IMAGE SERIES: 1 ACCESS LEVEL: L3-4 OPENING PRESSURE: 12.5 cm of water CLOSING PRESSURE: Not requested. FLUID: 17 cc of clear CSF was collected and sent to the laboratory for analysis. PROCEDURE : 1. Fluoroscopic guided lumbar puncture. 2. Recording of opening pressure. The risks, benefits and alternatives to the procedure were explained and verbal and written consent w as obtained. The site was prepped in sterile fashion. Full sterile technique was used, including ca p, mask, sterile gloves and gown and a large sterile sheet. Hand hygiene and 2% chlorhexidine and/or betadine/alcohol prep was utilized per protocol for cutaneous antisepsis. The skin and subcutaneous tissues were infiltrated with local anesthetic solution. With fluoroscopic guidance the lumbar thecal sac was punctured at the above level described above and the opening pressure was recorded. The above described fluid was removed without difficulty. The patient tolerated the procedure well and there were no complications. CONCLUSION: Uncomplicated fluoroscopically guided lumbar puncture with pressures as above. Kwesi Campoverde MD on August 20, 2017 at 15:46 Board Certified Radiologist. This report was verified electronically.
[2017-08-20 15:50] LABS: CSF LYMPHOCYTES 0 %; CSF NEUTROPHILS 0 %; RBC TUBE #4 3 /MM3; WBC TUBE #4 0 /MM3 (0-10)
[2017-08-20] MEDS ORDERED: POTASSIUM BICARBONATE 25 MEQ EFFERVESCENT TAB PO ONE (18:15)
--- NOTE | 2017-08-20 18:32 | RADRPT ---
EXAM DATE/TIME: 08/20/2017 17:31 [place] COMPARISON: MRI CERVICAL SPINE W/O CONTRAST, June 18, 2017, 15:45. MRI BRAIN W & W/O CONTRAST, August 18 8, 22:01. INDICATIONS : Medulla enhancement. CONTRAST: 18 cc Omniscan (gadodiamide) IV MEDICAL HISTORY : Seizures. CVA. SURGICAL HISTORY : section. Discectomy, lumbar. ENCOUNTER: Initial ACUITY: 4-6 days PAIN SCORE: 0/10 LOCATION: cranial TECHNIQUE: Multiplanar, multisequence MRI of the brain was performed both prior to and following the administrat ion of paramagnetic contrast. FINDINGS: CEREBRUM: The ventricles are normal for age. No evidence of midline shift, mass lesion, hemorrhage or acute in farction. No extraaxial fluid collections are seen. The pituitary gland and suprasellar cistern are normal in configuration. WHITE MATTER: No significant signal abnormalities are seen in the white matter. POSTERIOR FOSSA: The cerebellum and brainstem are intact. The 4th ventricle is midline. The cerebellopontine angle is unremarkable. The cerebellar tonsils are normal in position. DIFFUSION IMAGING: No focal areas of restricted diffusion are seen. No evidence of acute infarction. EXTRACRANIAL: The visualized portions of the orbits and paranasal sinuses are unremarkable. POST-CONTRAST: No abnormal areas of parenchymal or dural enhancement. No evidence of blood-brain barrier breakdown. CONCLUSION: Normal examination. Rodrigo Goldstein MD on August 20, 2017 at 18:28 Board Certified Radiologist. This report was verified electronically.
[2017-08-20] MEDS: ATORVASTATIN 40 MG TAB PO SCH (21:00)
[2017-08-20 22:18] LABS: ALB/GLOB RATIO (SPE) 1.08 (1.39-2.23)
[2017-08-21] VITALS (8 sets, daily range): BP systolic 109–120; BP diastolic 63–73; PULSE 80–98; RESP 12–16; TEMP 97.9–98.8; O2SAT 98–100
[2017-08-21] MEDS: SODIUM CHLOR 0.9% 1000 ML INJ 1,000 ML IV SCH (00:33)
[2017-08-21] MEDS: SODIUM CHLORIDE 0.9% FLUSH 10 ML FLUSH IV FLUSH SCH ×2 (09:00→21:52)
[2017-08-21] MEDS: levETIRAcetam INJ 500 MG in SODIUM CHLORIDE 0.9% INJ 100 ML IV SCH (09:11)
[2017-08-21] MEDS: OXYBUTYNIN CHLORIDE 5 MG TAB PO SCH ×2 (09:15→21:51)
[2017-08-21] MEDS: FAMOTIDINE 20 MG TAB PO SCH ×2 (09:15→21:51)
[2017-08-21] MEDS ORDERED: ACETAMIN 325 MG/BUTALBITAL 50 MG/CAFFEINE 40 MG TAB PO ONE (09:15)
[2017-08-21] MEDS: SERTRALINE HCL 100 MG TAB PO SCH (09:15)
[2017-08-21 11:25] LABS: BICARBONATE 24.3 MEQ/L (21.0-32.0); CALCIUM 8.3 MG/DL (8.5-10.1); CREATININE 0.62 MG/DL (0.50-1.00)
--- NOTE | 2017-08-21 15:16 | HHI.PR ---
Subjective Remarks late entry, patient seen around 9am Follow-up on patient with altered mental status. Patient seen and examined. Patient able to speak some words today. Still is flaccid in all 4 extremities. Complaining of headache. Denies any vision changes or dizziness. Denies any fever or chills. Denies any chest pain or shortness of breath. Mother is at the bedside. Objective Vitals Vital Signs Date Time Temp Pulse Resp B/P (MAP) Pulse Ox O2 Delivery O2 Flow Rate FiO2 08/21/17 11:42 98.8 85 12 120/73 (89) 100 08/21/17 08:40 97.9 82 14 118/70 (86) 100 08/21/17 06:11 87 08/21/17 01:16 98.6 81 16 120/63 (82) 98 08/20/17 20:07 98.9 93 18 121/65 (83) 100 I/O 08/20/17 08/20/17 08/20/17 08/21/17 08/21/17 08/21/17 06:59 14:59 22:59 06:59 14:59 22:59 # Voids 6 4 Result Diagram: 08/19/17 1718 08/21/17 1030 Imaging Last Impressions Lumbar Puncture Fluoroscopy 08/20/17 0600 Signed Impressions: Service Date/Time: Sunday, August 20, 2017 11:55 - CONCLUSION: Uncomplicated fluoroscopically guided lumbar puncture with pressures as above. Kwesi Campoverde MD Brain MRI 08/20/17 0000 Signed Impressions: Service Date/Time: Sunday, August 20, 2017 17:31 - CONCLUSION: Normal examination. Rodrigo Goldstein MD Head CT 08/18/17 1417 Signed Impressions: Service Date/Time: Friday, August 18, 2017 15:03 - CONCLUSION: Normal examination for a patient of this age. No significant change has occurred. Renan Bucio MD Objective Remarks GENERAL: This is a well-nourished, well-developed obese female patient, INAD. States "head hurts". Mother at bedside. SKIN: No rashes, ecchymoses or lesions. Cool and dry. HEAD: Atraumatic. Normocephalic. EYES: Pupils equal round and reactive. Sclera anicteric. ENT: Nose without bleeding or purulent drainage. Airway patent. MMM. NECK: Trachea midline. CARDIOVASCULAR: Regular rate and rhythm without murmurs, gallops, or rubs. RESPIRATORY: Clear to auscultation. Breath sounds equal bilaterally. No wheezes , rales, or rhonchi. GASTROINTESTINAL: Abdomen soft, non-tender, nondistended. MUSCULOSKELETAL: Extremities without clubbing, cyanosis, or edema. No calf tenderness elicited. NEUROLOGICAL: Awake and alert. Flaccid 4 except for small movement noted in left foot. Able to speak few words this morning. Medications and IVs Current Medications Medications (Trade) Dose Ordered Sig/Ninfa Route Start Time Stop Time Status Last Admin (NS Flush) 2 ml UNSCH PRN IV FLUSH 08/18/17 20:30 (NS Flush) 2 ml BID IV FLUSH 08/18/17 21:00 (Zofran Inj) 4 mg Q6H PRN IVP 08/18/17 20:30 08/18/17 21:48 (Narcan Inj) 0.4 mg UNSCH PRN IV PUSH 08/18/17 20:30 (Ativan Inj) 1 mg Q15M PRN IV PUSH 08/18/17 20:30 (D50w (Vial) Inj) 50 ml UNSCH PRN IV PUSH 08/18/17 20:45 (Glucagon Inj) 1 mg UNSCH PRN OTHER 08/18/17 20:45 (Lipitor) 40 mg HS PO 08/19/17 21:00 (Ditropan) 5 mg Q12HR PO 08/19/17 09:00 08/21/17 09:15 (Zoloft) 100 mg DAILY PO 08/19/17 09:00 08/21/17 09:15 (Pepcid) 20 mg BID PO 08/19/17 09:00 08/21/17 09:15 Pharmacy Profile Note 0 ml @ 0 mls/hr UNSCH OTHER 08/19/17 16:15 Sodium Chloride 1,000 ml @ 42 mls/hr [id number] IV 08/19/17 16:19 08/21/17 00:33 Miscellaneous Information SPECIFIC LAB TO BE DRAWN:VANCOMYCIN TROUGH DATE TO... ONCE ONCE .XX 08/22/17 07:45 08/22/17 07:46 Levetriacetam 500 mg/Sodium Chloride 105 ml @ 420 mls/hr Q12HR IV 08/20/17 09:00 08/21/17 09:11 A/P Problem List: (1) Seizures ICD Code: R56.9 - Unspecified convulsions Status: Acute (2) Encephalopathy ICD Code: G93.40 - Encephalopathy, unspecified Status: Acute (3) Diabetes mellitus ICD Code: E11.9 - Type 2 diabetes mellitus without complications Status: Chronic Assessment and Plan 41 y/o female with a history of seizures(not on any medication), DM, and CVA with previous right-sided paralysis presented to the ED via [facility] for altered mental status. Encephalopathy, suspect related to seizures Head CT reviewed and shows no abnormalities, toxicology screen is negative UDS negative -Neurology following, appreciate recommendations. Workup negative thus far except for positive IVONNE. HSV pending. Awaiting CSF culture results. -on IV Keppra per Neurology, change to po as patient passed swallow eval -started on IV Acyclovir, Vancomycin and Ampicillin by neurology but discontinued -Seizure precautions -Neuro checks -Continue with PT/OT -ST swallow evaluation advanced to mechanical soft diet/thin liquid diet -Continue to hold all sedating medications UTI -UCX positive for Klebsiella, pansensitive -Cipro 250mg BID x 3 days Diabetes, chronic -Hold oral medications -blood sugar 91 this am -Accu-Cheks with SSI Hypokalemia -K 3.4 yesterday, treated with po repletion, resolved. 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 Angelo Discharge Planning Discharge pending completion of workup, neurology and psychiatry clearance Problem Qualifiers (1) Diabetes mellitus: Qualified Codes: E11.9 - Type 2 diabetes mellitus without complications Jacqui Bah Aug 21, 2017 15:16
--- NOTE | 2017-08-21 15:30 | HHI.PYPN ---
Subjective Remarks Patient seen in her room with patient's mother and aunt in nurse present throughout session. Still in bed mother was feeding her lunch. No one questioned patient did respond with brief responses she knows the time date and location. There appears this is similar to behaviors that led to an extended hospitalization recently. Patient mother states there is family members and assistance at home. That the patient has been having much in the way of caregivers assist her in the home. Mother feels safe with patient going home says she would like to take her home that family can help take care of her. I did discuss some of her behaviors in relationship to conversion type reaction. Mother appeared to process this fairly well. He also share with her the fact that if patient is not able to be appropriately maintained at home with home services than that may be the possibility of a skill nursing facility or rehabilitation facility. But as of today it is okay by psych for patient to be discharged her family if this is approved by the medical service Review of Systems Except as stated in HPI: all other systems reviewed are Neg Mental Status Examination Appearance: Appropriate Consciousness: Alert Orientation: Person, Place, Date/Time Motor Activity: Other (patient in bed) Speech: Hesitant (very brief) Language: Adequate Fund of Knowledge: Adequate Attention and Concentration: Other (poor) Memory: Impaired Mood: Other (restricted) Affect: Other (decreased range and intensity) Thought Process & Associations: Other (difficult to ascertain due to patient's limited verbal response) Thought Content: Other (difficult to ascertain due to patient's limited verbal response) Hallucination Type: None Delusion Type: None Suicidal Ideation: No Suicidal Plan: No Suicidal Intention: No Homicidal Ideation: No Homicidal Plan: No Homicidal Intention: No Insight: Poor Judgment: Poor Results Labs Test 08/21/17 10:30 Blood Urea Nitrogen 6 MG/DL Creatinine 0.62 MG/DL Random Glucose 94 MG/DL Calcium Level 8.3 MG/DL Sodium Level 138 MEQ/L Potassium Level 4.2 MEQ/L Chloride Level 107 MEQ/L Carbon Dioxide Level 24.3 MEQ/L Anion Gap 7 MEQ/L Estimat Glomerular Filtration Rate 130 ML/MIN Date/Time Source Procedure Growth Status 08/20/17 13:08 Cerebral Spinal Fluid Lumbar Puncture Fungal Smear - Final NO FUNGAL ELEMENTS SEEN. Resulted 08/20/17 13:08 Cerebral Spinal Fluid Lumbar Puncture Fungal Culture Pending Resulted 08/18/17 14:25 Urine Catheterized Urine Urine Culture - Final Klebsiella Pneumoniae Group B Beta Strep Complete Vitals/IOs Vital Signs Date Time Temp Pulse Resp B/P (MAP) Pulse Ox O2 Delivery O2 Flow Rate FiO2 08/21/17 11:42 98.8 85 12 120/73 (89) 100 08/18/17 14:10 Room Air Assessment & Plan Problem List: (1) Adjustment disorder with mixed anxiety and depressed mood ICD Codes: F43.23 - Adjustment disorder with mixed anxiety and depressed mood Assessment & Plan Estimated LOS: days as okay by psych for discharge will this be home with family family assistance in the home or to more extended care facility Justification for Cont. Inpt. See above Discharge Planning See above Request HC Surrog/Guard Advoc?: No Rodrigo Kinney MD Aug 21, 2017 15:30
[2017-08-21] MEDS ORDERED: CIPROFLOXACIN 250 MG TAB PO ONE (16:00)
--- NOTE | 2017-08-21 16:33 | HHI.PR ---
Review/Management Diagnosis generalized weakness. MRI brain normal, CSF normal Plan MRI of the cervical and lumbar spines LAB--esr, caden, rf Diagnosis/Plan: Subjective Subjective Comments No acute events reported c/o low back and neck pain Active Medications Current Medications Medications (Trade) Dose Ordered Sig/Ninfa Route Start Time Stop Time Status Last Admin (NS Flush) 2 ml UNSCH PRN IV FLUSH 08/18/17 20:30 (NS Flush) 2 ml BID IV FLUSH 08/18/17 21:00 (Zofran Inj) 4 mg Q6H PRN IVP 08/18/17 20:30 08/18/17 21:48 (Narcan Inj) 0.4 mg UNSCH PRN IV PUSH 08/18/17 20:30 (Ativan Inj) 1 mg Q15M PRN IV PUSH 08/18/17 20:30 (D50w (Vial) Inj) 50 ml UNSCH PRN IV PUSH 08/18/17 20:45 (Glucagon Inj) 1 mg UNSCH PRN OTHER 08/18/17 20:45 (Lipitor) 40 mg HS PO 08/19/17 21:00 (Ditropan) 5 mg Q12HR PO 08/19/17 09:00 08/21/17 09:15 (Zoloft) 100 mg DAILY PO 08/19/17 09:00 08/21/17 09:15 (Pepcid) 20 mg BID PO 08/19/17 09:00 08/21/17 09:15 Miscellaneous Information SPECIFIC LAB TO BE DRAWN:VANCOMYCIN TROUGH DATE TO... ONCE ONCE .XX 08/22/17 07:45 08/22/17 07:46 (Cipro) 250 mg Q12HR PO 08/21/17 21:00 08/24/17 20:59 (Keppra) 500 mg Q12HR PO 08/21/17 21:00 Allergies Allergies Coded Allergies meloxicam (Unverified Allergy, Severe, Swelling, 01/05/17) promethazine (Unverified Allergy, Severe, EDEMA, 01/05/17) Exam I&O / VS Vital Signs Date Time Temp Pulse Resp B/P (MAP) Pulse Ox O2 Delivery O2 Flow Rate FiO2 08/21/17 11:42 98.8 85 12 120/73 (89) 100 3/31/18 08:40 97.9 82 14 118/70 (86) 100 08/21/17 06:11 87 08/21/17 01:16 98.6 81 16 120/63 (82) 98 08/20/17 20:07 98.9 93 18 121/65 (83) 100 Exam Comments alert, follow commands Is able to talk to answer questions PERRL. EOM intact MOTOR--no limb movement Objective Micro and Labs Laboratory Tests Test 08/21/17 10:30 Blood Urea Nitrogen 6 Creatinine 0.62 Random Glucose 94 Calcium Level 8.3 Sodium Level 138 Potassium Level 4.2 Chloride Level 107 Carbon Dioxide Level 24.3 Anion Gap 7 Estimat Glomerular Filtration Rate 130 Date/Time Source Procedure Growth Status 08/20/17 13:08 Cerebral Spinal Fluid Lumbar Puncture Fungal Smear - Final NO FUNGAL ELEMENTS SEEN. Resulted 08/20/17 13:08 Cerebral Spinal Fluid Lumbar Puncture Fungal Culture Pending Resulted 08/18/17 14:25 Urine Catheterized Urine Urine Culture - Final Klebsiella Pneumoniae Group B Beta Strep Complete Paulie Orosco MD PhD Aug 21, 2017 16:33
[2017-08-21] MEDS: CYCLOBENZAPRINE HCL 10 MG TAB PO PRN (16:45)
[2017-08-21] MEDS: levETIRAcetam 500 MG TAB PO SCH (21:51)
[2017-08-21] MEDS: CIPROFLOXACIN 250 MG TAB PO SCH (21:52)
[2017-08-21] MEDS: ATORVASTATIN 40 MG TAB PO SCH (21:52)
[2017-08-21] MEDS: ACETAMINOPHEN 325 MG TAB PO PRN (23:22)
[2017-08-22] VITALS (10 sets, daily range): BP systolic 94–121; BP diastolic 55–69; PULSE 72–88; RESP 12–20; TEMP 97.8–98.5; O2SAT 98–100
[2017-08-22] MEDS ORDERED: BISACODYL EC 5 MG TABEC PO PRN (03:45)
[2017-08-22] MEDS ORDERED: LACTULOSE SYRUP 20 GM/30 ML CUP PO PRN (03:45)
[2017-08-22] MEDS ORDERED: PHARMACY ORDERED LAB ONE (07:45)
--- NOTE | 2017-08-22 07:58 | HHI.PR ---
Subjective Remarks Follow-up on patient with altered mental status. Patient seen and examined. Patient is more alert and communicative today. Mother is at the bedside. She denies any headache, vision changes or dizziness. Denies any chest pain or shortness of breath. Denies any nausea or vomiting. Does endorse some lower abdominal discomfort but has not had a BM since Wednesday. She denies any dysuria. Objective Vitals Vital Signs Date Time Temp Pulse Resp B/P (MAP) Pulse Ox O2 Delivery O2 Flow Rate FiO2 08/22/17 07:29 98.0 74 14 94/55 (68) 98 08/22/17 04:32 87 08/22/17 03:47 98.4 74 16 115/64 (81) 100 08/22/17 00:15 88 08/22/17 00:03 98.5 74 16 121/62 (81) 100 08/21/17 21:30 98.5 81 16 109/66 (80) 100 08/21/17 20:00 92 08/21/17 15:00 98 08/21/17 11:42 98.8 85 12 120/73 (89) 100 08/21/17 08:40 97.9 82 14 118/70 (86) 100 I/O 08/21/17 08/21/17 08/21/17 08/22/17 08/22/17 08/22/17 07:00 15:00 23:00 07:00 15:00 23:00 # Voids 4 Result Diagram: 08/19/17 1718 08/21/17 1030 Imaging Last Impressions Lumbar Puncture Fluoroscopy 08/20/17 0600 Signed Impressions: Service Date/Time: Sunday, August 20, 2017 11:55 - CONCLUSION: Uncomplicated fluoroscopically guided lumbar puncture with pressures as above. Kwesi Campoverde MD Brain MRI 08/20/17 0000 Signed Impressions: Service Date/Time: Sunday, August 20, 2017 17:31 - CONCLUSION: Normal examination. Rodrigo Goldstein MD Head CT 08/18/17 1417 Signed Impressions: Service Date/Time: Friday, August 18, 2017 15:03 - CONCLUSION: Normal examination for a patient of this age. No significant change has occurred. Renan Bucio MD Objective Remarks GENERAL: This is a well-nourished, well-developed obese female patient, INAD. More awake and communicative today. Mother at the bedside. SKIN: No rashes, ecchymoses or lesions. Cool and dry. HEAD: Atraumatic. Normocephalic. EYES: Pupils equal round and reactive. Sclera anicteric. ENT: Nose without bleeding or purulent drainage. Airway patent. MMM. NECK: Trachea midline. CARDIOVASCULAR: Regular rate and rhythm without murmurs, gallops, or rubs. RESPIRATORY: Clear to auscultation. Breath sounds equal bilaterally. No wheezes , rales, or rhonchi. GASTROINTESTINAL: Abdomen soft, non-tender, nondistended. MUSCULOSKELETAL: Extremities without clubbing, cyanosis, or edema. No calf tenderness elicited. NEUROLOGICAL: Awake and alert. Flaccid 4 except for some movement noted in left arm. Able to speak more clearly this morning. Medications and IVs Current Medications Medications (Trade) Dose Ordered Sig/Ninfa Route Start Time Stop Time Status Last Admin (NS Flush) 2 ml UNSCH PRN IV FLUSH 08/18/17 20:30 (NS Flush) 2 ml BID IV FLUSH 08/18/17 21:00 08/21/17 21:52 (Zofran Inj) 4 mg Q6H PRN IVP 08/18/17 20:30 08/18/17 21:48 (Narcan Inj) 0.4 mg UNSCH PRN IV PUSH 08/18/17 20:30 (Ativan Inj) 1 mg Q15M PRN IV PUSH 08/18/17 20:30 (D50w (Vial) Inj) 50 ml UNSCH PRN IV PUSH 08/18/17 20:45 (Glucagon Inj) 1 mg UNSCH PRN OTHER 08/18/17 20:45 (Lipitor) 40 mg HS PO 08/19/17 21:00 08/21/17 21:52 (Ditropan) 5 mg Q12HR PO 08/19/17 09:00 08/21/17 21:51 (Zoloft) 100 mg DAILY PO 08/19/17 09:00 08/21/17 09:15 (Pepcid) 20 mg BID PO 08/19/17 09:00 08/21/17 21:51 (Cipro) 250 mg Q12HR PO 08/21/17 21:00 4/3/18 20:59 08/21/17 21:52 (Keppra) 500 mg Q12HR PO 08/21/17 21:00 08/21/17 21:51 (Flexeril) 10 mg Q8HR PRN PO 08/21/17 16:45 08/21/17 16:45 (Tylenol) 650 mg Q4H PRN PO 08/21/17 22:45 08/21/17 23:22 (Janet-Colace) 2 tab BID PO 08/22/17 09:00 (Lactulose Liq) 30 ml TID PRN PO 08/22/17 03:45 (Dulcolax Ec) 5 mg DAILY PRN PO 08/22/17 03:45 A/P Problem List: (1) Seizures ICD Code: R56.9 - Unspecified convulsions Status: Acute (2) Encephalopathy ICD Code: G93.40 - Encephalopathy, unspecified Status: Acute (3) Diabetes mellitus ICD Code: E11.9 - Type 2 diabetes mellitus without complications Status: Chronic Assessment and Plan 41 y/o female with a history of seizures(not on any medication), DM, and CVA with previous right-sided paralysis presented to the ED via [facility] for altered mental status. Encephalopathy, suspect related to seizures, improving Head CT reviewed and shows no abnormalities, toxicology screen is negative UDS negative -Neurology following, appreciate recommendations. Workup negative thus far except for positive IVONNE. Positive IVONNE evaluation ordered. HSV pending. CSF culture shows no growth. MRI cervical, thoracic and lumbar spine under anesthesia ordered by Dr. Orosco. Angie RN discussed with Dr. Pillai of anesthesiology who is aware of order and will plan to proceed tomorrow with imaging studies under anesthesia. -po Keppra -started on IV Acyclovir, Vancomycin and Ampicillin by neurology but discontinued -Seizure precautions -Neuro checks -Continue with PT/OT -ST swallow evaluation advanced to mechanical soft diet/thin liquid diet -Continue to hold all sedating medications UTI -UCX positive for Klebsiella, pansensitive -Cipro 250mg BID x 3 days Diabetes, chronic -Hold oral medications -blood sugar 90 this am -Accu-Cheks with SSI -obtain hgbA1c Hypokalemia -resolved s/p repletion Anxiety/depression -Psychiatry following, appreciate recommendations - possible functional neurologic symptoms disorder. Ok for discharge per psych. DVT prophylaxis: SCDs, Lovenox sq Discharge Planning Discharge pending results of workup/lab/imaging and Neurology clearance Problem Qualifiers (1) Diabetes mellitus: Qualified Codes: E11.9 - Type 2 diabetes mellitus without complications Jacqui Bah Aug 22, 2017 07:58
--- NOTE | 2017-08-22 08:56 | HHI.FF ---
Face to Face Verification Diagnosis: (1) Weakness (2) Debility (3) Depression (4) UTI (urinary tract infection) (5) Impaired activities of daily living (6) Altered mental status (7) Encephalopathy (8) Adjustment disorder with mixed anxiety and depressed mood Physical Therapy Order: Evaluate and Treat, Improve ambulation, Strength and gait training Occupational Therapy Order: Evaluate and Treat, Improve ADL, Gross motor coordination, Fine motor coordination Speech Therapy Order: To Improve: Speech and communication skills, Cognitive skills, Swallowing I have seen patient Christy Galindo on 08/22/17. My clinical findings support the need for the requested home health care services because: Deconditioned w/ increased weakness Limited ability to care for self High risk of falls I certify that my clinical findings support that this patient is homebound because: Impaired cognitive ability/safety Unsteady gait/balance Unsafe to leave home unassisted [id number] bed/chair Unable to use public transportation Jacqui Bah Aug 22, 2017 08:56
[2017-08-22] MEDS ORDERED: POLYETHYLENE GLYCOL 17 GM PKG PO ONE (09:00)
[2017-08-22] MEDS ORDERED: BISACODYL 10 MG SUPP RECTAL ONE (09:00)
--- NOTE | 2017-08-22 09:03 | HHI.DS ---
Discharge Summary Admission Date Aug 18, 2017 at 19:25 Admitting Diagnosis altered mental status (1) Encephalopathy ICD Code: G93.40 - Encephalopathy, unspecified Status: Acute (2) Diabetes mellitus ICD Code: E11.9 - Type 2 diabetes mellitus without complications Status: Chronic (3) IVONNE positive ICD Code: R76.8 - Other specified abnormal immunological findings in serum (4) Adjustment disorder with mixed anxiety and depressed mood ICD Code: F43.23 - Adjustment disorder with mixed anxiety and depressed mood (5) Weakness ICD Code: R53.1 - Weakness (6) UTI (urinary tract infection) ICD Code: N39.0 - Urinary tract infection, site not specified (7) Debility ICD Code: R53.81 - Other malaise (8) Impaired activities of daily living ICD Code: R53.81 - Other malaise (9) Seizures ICD Code: R56.9 - Unspecified convulsions Status: Acute Procedures Lumbar puncture Brief History - From Admission 41 y/o female with a history of seizures(not on any medication), DM, and CVA with previous right-sided paralysis presented to the ED via [facility] for altered mental status. Patient is unresponsive and only opens eyes to painful stimuli. Mom is at bedside and is able to provide history and some of the patient's story line. Patient was at home today, eating breakfast normally and when her mom went to the store she was called and the patient's daughter whose states that while the patient was using the commode and went unresponsive in her life alert button was pushed and [facility] was called. Mom states in May she was diagnosed with seizures, but is unsure if she was placed on seizure medications and she has not followed up with a neurologist. While in the emergency room mom states patient had 2 episodes of jerking/shaking movements which she thought was seizure activity. Patient does have a caregiver named Viviana who states she is not on any seizure medications at home, and is going to bring in patient's medication list. Review of systems is limited due to patient's level of consciousness. Patient only opens eyes to voice and pain, she does not withdrawal any extremities to pain and no spontaneous movement noted on examination. Mom does not think patient has been sick or complaining of any other symptoms prior to today. CBC/BMP: 08/19/17 1718 08/21/17 1030 Significant Findings Laboratory Tests Test 08/19/17 13:31 08/19/17 17:18 08/20/17 09:31 08/20/17 13:08 Mean Corpuscular Hemoglobin 26.8 PG (27.0-34.0) Monocytes (%) (Auto) 11.1 % (0.0-8.0) Blood Urea Nitrogen 5 MG/DL (7-18) 4 MG/DL (7-18) Calcium Level 8.0 MG/DL (8.5-10.1) 8.1 MG/DL (8.5-10.1) Albumin 3.0 GM/DL (3.4-5.0) Albumin/Globulin Ratio 1.08 (1.39-2.23) Gamma Globulins 1.44 GM/DL (0.50-1.39) Anti-Nuclear Antibody Screen POS (NEG) Random Glucose 115 MG/DL (74-106) Potassium Level 3.4 MEQ/L (3.5-5.1) CSF RBC (Tube 1) 3 /MM3 (NONE) CSF RBC (Tube 4) 3 /MM3 (NONE) Test 08/21/17 10:30 Blood Urea Nitrogen 6 MG/DL (7-18) Calcium Level 8.3 MG/DL (8.5-10.1) Imaging Last Impressions Lumbar Puncture Fluoroscopy 08/20/17 0600 Signed Impressions: Service Date/Time: Sunday, August 20, 2017 11:55 - CONCLUSION: Uncomplicated fluoroscopically guided lumbar puncture with pressures as above. Kwesi Campoverde MD Brain MRI 08/20/17 0000 Signed Impressions: Service Date/Time: Sunday, August 20, 2017 17:31 - CONCLUSION: Normal examination. Rodrigo Goldstein MD Head CT 08/18/17 1417 Signed Impressions: Service Date/Time: Friday, August 18, 2017 15:03 - CONCLUSION: Normal examination for a patient of this age. No significant change has occurred. Renan Bucio MD PE at Discharge GENERAL: This is a well-nourished, well-developed obese female patient, INAD. States "head hurts". Mother at bedside. SKIN: No rashes, ecchymoses or lesions. Cool and dry. HEAD: Atraumatic. Normocephalic. EYES: Pupils equal round and reactive. Sclera anicteric. ENT: Nose without bleeding or purulent drainage. Airway patent. MMM. NECK: Trachea midline. CARDIOVASCULAR: Regular rate and rhythm without murmurs, gallops, or rubs. RESPIRATORY: Clear to auscultation. Breath sounds equal bilaterally. No wheezes , rales, or rhonchi. GASTROINTESTINAL: Abdomen soft, non-tender, nondistended. MUSCULOSKELETAL: Extremities without clubbing, cyanosis, or edema. No calf tenderness elicited. NEUROLOGICAL: Awake and alert. Flaccid 4 except for small movement noted in left foot. Able to speak few words this morning. Pt update on day of discharge Patient seen and examined. Patient states she feels better. She is much more alert and communicative. Denies any fever or chills. Denies any headache, dizziness or change in vision. Denies any chest pain or dyspnea. Denies any nausea or vomiting. She does endorse some lower abdominal discomfort but states she has not had a BM since Wednesday. She denies any dysuria. Pt Condition on Discharge: Stable Discharge Disposition: Disch w/ Home Health Serv Discharge Time: > 30 minutes Discharge Instructions DIET: Follow Instructions for: Heart Healthy Diet, Diabetic Diet Speech Therapy-Diet Recommends: Mechanical Soft Activities you can perform: See Additionl Instruction Other Activity Instructions: per physical therapy recommendations Follow up Referrals: Neurology - 1 Week with Florencio Angelo MD PCP Follow-up - 1 Week Psychiatry Adult - 1 Week Jacqui Bah Aug 22, 2017 09:03
[2017-08-22] MEDS: SODIUM CHLORIDE 0.9% FLUSH 10 ML FLUSH IV FLUSH SCH ×2 (10:28→20:22)
[2017-08-22] MEDS: SERTRALINE HCL 100 MG TAB PO SCH (10:28)
[2017-08-22] MEDS: DOCUSATE SODIUM 50 MG/SENNA 8.6 MG TAB PO SCH ×2 (10:28→20:24)
[2017-08-22] MEDS: OXYBUTYNIN CHLORIDE 5 MG TAB PO SCH ×2 (10:28→20:23)
[2017-08-22] MEDS: ACETAMINOPHEN 325 MG TAB PO PRN ×2 (10:29→17:21)
[2017-08-22] MEDS: FAMOTIDINE 20 MG TAB PO SCH ×2 (10:29→20:23)
[2017-08-22] MEDS: levETIRAcetam 500 MG TAB PO SCH ×2 (10:29→20:23)
[2017-08-22] MEDS: CIPROFLOXACIN 250 MG TAB PO SCH ×2 (10:29→20:22)
[2017-08-22] MEDS: ENOXAPARIN SODIUM 40 MG/0.4 ML SYRINGE SQ SCH ×3 (12:00→14:11)
--- NOTE | 2017-08-22 12:35 | HM ---
Date Performed: 08/19/2017 Time Performed: 11:37:00 HOOKUP DATE: 08/19/17 11:37:00 AM Dottie ANALYSIS START TIME: 08/19/2017 11:42:00 AM ANALYSIS END TIME: 08/20/2017 11:46:00 AM PATIENT AGE: 41 PATIENT HEIGHT PATIENT WEIGHT DRUG LIST PATIENT DIAGNOSIS TEST NARRATIVE: The patient's average heart rate was 85 BPM. Heart rates greater than 120 B PM were noted < 1% of the time. No episodes of bradycardia were noted. No pauses exceeding 2.0 s econds were noted. No ventricular ectopics were noted. 2 supraventricular ectopics, which rep resented < 1% of the total beat count, were noted. The highest supraventricular ectopic frequency oc curred from 09:00 PM to 10:00 PM Dottie. During this time 2 SVE(s) occurred. No episodes of ST depr ession (defined as -1.0 mm or more) were noted in channel 1. No episodes of ST depression (defined a s -1.0 mm or more) were noted in channel 2. No episodes of ST depression (defined as -1.0 mm or more ) were noted in channel 3. TEST INTERPRETATION: Holter demonstrates normal Sinus rhythm . A single atrial couplet was present. No other ectopy was present. Signed by : Florencio Valdes
[2017-08-22] MEDS: CYCLOBENZAPRINE HCL 10 MG TAB PO PRN (20:23)
[2017-08-22] MEDS: ATORVASTATIN 40 MG TAB PO SCH (20:24)
[2017-08-23] VITALS (8 sets, daily range): BP systolic 107–123; BP diastolic 55–69; PULSE 66–86; RESP 14–20; TEMP 97.6–98.4; O2SAT 100
--- NOTE | 2017-08-23 08:48 | HHI.PR ---
Subjective Remarks wiggling fingers talking Objective Vital Signs Date Time Temp Pulse Resp B/P (MAP) Pulse Ox O2 Delivery O2 Flow Rate FiO2 08/23/17 08:40 97.6 79 14 107/55 (72) 100 08/23/17 04:14 66 08/23/17 04:00 98.2 77 20 108/62 (77) 100 08/23/17 00:15 86 08/23/17 00:00 98.4 81 20 114/69 (84) 100 08/22/17 20:15 73 08/22/17 20:00 98.3 80 20 107/69 (82) 100 08/22/17 16:17 08/22/17 15:37 86 08/22/17 12:58 97.8 82 12 106/56 (73) 98 Result Diagram: 08/19/17 1718 08/21/17 1030 Objective Remarks opened eyesand talking now slowly and says wants meat loaf wiggled r fingers and toes a little this am Assessment and Plan Assessment and Plan imp randle neg eeg mri echo labs all nl plan is LP an dif this is nl then dc abt and recheck mri and eeg possiblilty would be prolonged postictal state or psychological iv keppra PT [place] was [place] after [place] spine surgery due to rle weak and that is very unusual in itself i dw mom 08/23/17 improved repeat mri nl caden titer pend but crp nl mri of spine ordered admits depression i really think this is all psychological and am asking psych to consider changing her zoloft in some way see if she can get oob with PT fu mri Florencio Angelo MD Aug 23, 2017 08:48
[2017-08-23] MEDS: SODIUM CHLORIDE 0.9% FLUSH 10 ML FLUSH IV FLUSH SCH ×2 (09:00→20:10)
--- NOTE | 2017-08-23 09:48 | HHI.PR ---
Subjective Remarks Follow-up on patient with altered mental status. Patient seen and examined. Patient continues to improve. She still is not able to speak fluently but is speaking more. She also has begun to have movement in the digits of the left hand and left foot. She denies any new medical complaints. She is scheduled to have MRI studies today under anesthesia. Discussed with nursing staff, no acute issues noted. Objective Vitals Vital Signs Date Time Temp Pulse Resp B/P (MAP) Pulse Ox O2 Delivery O2 Flow Rate FiO2 08/23/17 08:40 97.6 79 14 107/55 (72) 100 08/23/17 04:14 66 08/23/17 04:00 98.2 77 20 108/62 (77) 100 08/23/17 00:15 86 08/23/17 00:00 98.4 81 20 114/69 (84) 100 08/22/17 20:15 73 08/22/17 20:00 98.3 80 20 107/69 (82) 100 08/22/17 16:17 08/22/17 15:37 86 08/22/17 12:58 97.8 82 12 106/56 (73) 98 Result Diagram: 08/19/17 1718 08/21/17 1030 Imaging Last Impressions Lumbar Puncture Fluoroscopy 08/20/17 0600 Signed Impressions: Service Date/Time: Sunday, August 20, 2017 11:55 - CONCLUSION: Uncomplicated fluoroscopically guided lumbar puncture with pressures as above. Kwesi Campoverde MD Brain MRI 08/20/17 0000 Signed Impressions: Service Date/Time: Sunday, August 20, 2017 17:31 - CONCLUSION: Normal examination. Rodrigo Goldstein MD Head CT 08/18/17 1417 Signed Impressions: Service Date/Time: Friday, August 18, 2017 15:03 - CONCLUSION: Normal examination for a patient of this age. No significant change has occurred. Renan Bucio MD Objective Remarks GENERAL: This is a well-nourished, well-developed obese female patient, INAD. More awake and communicative. Family members at the bedside. SKIN: No rashes, ecchymoses or lesions. Cool and dry. HEAD: Atraumatic. Normocephalic. EYES: Pupils equal round and reactive. Sclera anicteric. ENT: Nose without bleeding or purulent drainage. Airway patent. MMM. NECK: Trachea midline. CARDIOVASCULAR: Regular rate and rhythm without murmurs, gallops, or rubs. RESPIRATORY: Clear to auscultation. Breath sounds equal bilaterally. No wheezes , rales, or rhonchi. GASTROINTESTINAL: Abdomen soft, non-tender, nondistended. MUSCULOSKELETAL: Extremities without clubbing, cyanosis, or edema. No calf tenderness elicited. NEUROLOGICAL: Awake and alert. She is able to wiggle the digits of left hand and left foot. Speech improving. Procedures Lumbar puncture Medications and IVs Current Medications Medications (Trade) Dose Ordered Sig/Ninfa Route Start Time Stop Time Status Last Admin (NS Flush) 2 ml UNSCH PRN IV FLUSH 08/18/17 20:30 (NS Flush) 2 ml BID IV FLUSH 08/18/17 21:00 08/22/17 20:22 (Zofran Inj) 4 mg Q6H PRN IVP 08/18/17 20:30 08/18/17 21:48 (Narcan Inj) 0.4 mg UNSCH PRN IV PUSH 08/18/17 20:30 (Ativan Inj) 1 mg Q15M PRN IV PUSH 08/18/17 20:30 (D50w (Vial) Inj) 50 ml UNSCH PRN IV PUSH 08/18/17 20:45 (Glucagon Inj) 1 mg UNSCH PRN OTHER 08/18/17 20:45 (Lipitor) 40 mg HS PO 08/19/17 21:00 08/22/17 20:24 (Ditropan) 5 mg Q12HR PO 08/19/17 09:00 08/23/17 10:07 (Zoloft) 100 mg DAILY PO 08/19/17 09:00 08/23/17 10:08 (Pepcid) 20 mg BID PO 08/19/17 09:00 08/23/17 10:07 (Cipro) 250 mg Q12HR PO 08/21/17 21:00 08/24/17 20:59 08/23/17 10:07 (Keppra) 500 mg Q12HR PO 08/21/17 21:00 08/23/17 10:08 (Flexeril) 10 mg Q8HR PRN PO 3/31/18 16:45 08/22/17 20:23 (Tylenol) 650 mg Q4H PRN PO 08/21/17 22:45 08/22/17 17:21 (Janet-Colace) 2 tab BID PO 08/22/17 09:00 08/23/17 10:08 (Lactulose Liq) 30 ml TID PRN PO 08/22/17 03:45 (Dulcolax Ec) 5 mg DAILY PRN PO 08/22/17 03:45 (Lovenox Inj) 40 mg Q24H SQ 08/22/17 12:00 08/22/17 14:11 A/P Problem List: (1) Encephalopathy ICD Code: G93.40 - Encephalopathy, unspecified Status: Acute (2) Diabetes mellitus ICD Code: E11.9 - Type 2 diabetes mellitus without complications Status: Chronic (3) IVONNE positive ICD Code: R76.8 - Other specified abnormal immunological findings in serum (4) Adjustment disorder with mixed anxiety and depressed mood ICD Code: F43.23 - Adjustment disorder with mixed anxiety and depressed mood (5) Weakness ICD Code: R53.1 - Weakness (6) UTI (urinary tract infection) ICD Code: N39.0 - Urinary tract infection, site not specified (7) Debility ICD Code: R53.81 - Other malaise (8) Impaired activities of daily living ICD Code: R53.81 - Other malaise (9) Seizures ICD Code: R56.9 - Unspecified convulsions Status: Acute Assessment and Plan 41 y/o female with a history of seizures(not on any medication), DM, and CVA with previous right-sided paralysis presented to the ED via [facility] for altered mental status. Encephalopathy, suspect related to seizures, improving Head CT reviewed and shows no abnormalities, toxicology screen is negative UDS negative -Neurology following, appreciate recommendations. Workup negative thus far except for positive IVONNE. Positive IVONNE evaluation ordered/pending. HSV pending. CSF culture shows no growth. MRI cervical, thoracic and lumbar spine under anesthesia ordered by Dr. Orosco to be done this morning. Dr. Angelo states in his note today that he thinks this is all psychological. -po Keppra -started on IV Acyclovir, Vancomycin and Ampicillin by neurology but discontinued -Seizure precautions -Neuro checks -Continue with PT/OT -ST swallow evaluation advanced to mechanical soft diet/thin liquid diet -Continue to hold all sedating medications UTI -UCX positive for Klebsiella, pansensitive -Cipro 250mg BID x 3 days Diabetes, chronic -Hold oral medications -blood sugars have been excellent. Discontinue Accu-Cheks and sliding scale. 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 Ok for discharge per psych. DVT prophylaxis: SCDs, Lovenox sq Discharge Planning Discharge pending results of workup/lab/imaging and Neurology clearance Problem Qualifiers (1) Diabetes mellitus: Qualified Codes: E11.9 - Type 2 diabetes mellitus without complications Jacqui Bah Aug 23, 2017 09:48
[2017-08-23] MEDS: FAMOTIDINE 20 MG TAB PO SCH ×2 (10:07→20:09)
[2017-08-23] MEDS: OXYBUTYNIN CHLORIDE 5 MG TAB PO SCH ×2 (10:07→20:08)
[2017-08-23] MEDS: CIPROFLOXACIN 250 MG TAB PO SCH ×2 (10:07→20:09)
[2017-08-23] MEDS: DOCUSATE SODIUM 50 MG/SENNA 8.6 MG TAB PO SCH ×2 (10:08→20:09)
[2017-08-23] MEDS: SERTRALINE HCL 100 MG TAB PO SCH (10:08)
[2017-08-23] MEDS: levETIRAcetam 500 MG TAB PO SCH ×2 (10:08→20:08)
[2017-08-23] MEDS ORDERED: PROPOFOL 500 MG/50 ML INJ 100 ML ONE (11:28)
--- NOTE | 2017-08-23 13:20 | RADRPT ---
EXAM DATE/TIME: 08/23/2017 12:16 [facility] COMPARISON: MRI BRAIN W & W/O CONTRAST, August 20, 2017, 17:31. INDICATIONS : Loss of movement in all extremities. MEDICAL HISTORY : Seizures. SURGICAL HISTORY : section. lumbar sx ENCOUNTER: Subsequent ACUITY: 1 week PAIN SCORE: 4/10 LOCATION: lower back TECHNIQUE: Multiplanar, multisequence MRI examination of the cervical spine was performed. FINDINGS: VERTEBRAE: Normal vertebral body height. Homogeneous marrow signal. ALIGNMENT: No evidence of subluxation. CORD: Normal configuration and signal. POST FOSSA: The cerebellar tonsils are normal in position. C2-C3: The thecal sac has a normal configuration. There is no evidence of disc herniation or spinal canal s tenosis. The neural foramina are patent bilaterally. C3-C4: There is a degenerated disc with minimal broad based disc bulge. This just abuts the ventral aspect o f the cord. There is mild bony foraminal narrowing on the right. There is moderate facet arthritis on the right. The foramina on the left is adequate. C4-C5: There is a degenerated disc. There is mild osteophytic ridging from the vertebral endplates. The resi dual thecal space and foramina are adequate. There is mild facet arthritis bilaterally. C5-C6: There is a degenerated disc with central and right paracentral disc protrusion. This just abuts the v entral aspect of the cord. There is mild bony foraminal narrowing on the right. The foramina on the l eft is adequate. There is mild facet arthritis bilaterally. C6-C7: The thecal sac has a normal configuration. There is no evidence of disc herniation or spinal canal s tenosis. The neural foramina are patent bilaterally. There is mild facet arthritis bilaterally. C7-T1: The thecal sac has a normal configuration. There is no evidence of disc herniation or spinal canal s tenosis. The neural foramina are patent bilaterally. CONCLUSION: 1. Facet arthritis and degenerated disc as above. No significant spinal stenosis is evident. No abnor mal signal is seen within the cervical cord or the brainstem. Dylon Serrano MD on August 23, 2017 at 13:15 Board Certified Radiologist. This report was verified electronically.
[2017-08-23] MEDS ORDERED: MIDAZOLAM HCL 2 MG/2 ML VIAL ONE (13:22)
[2017-08-23 14:19] LABS: CSF CRYPTOCOCCUS AG CONF ND (NOT DETECTD)
--- NOTE | 2017-08-23 14:48 | RADRPT ---
EXAM DATE/TIME: 08/23/2017 12:16 [facility] COMPARISON: MRI BRAIN W & W/O CONTRAST, August 20, 2017, 17:31. INDICATIONS : Loss of movement in all extremities. MEDICAL HISTORY : Seizures. SURGICAL HISTORY : section. lumbar surgery ENCOUNTER: Subsequent ACUITY: 1 week PAIN SCORE: 3/10 LOCATION: lower back TECHNIQUE: Multiplanar multisequence MRI of the thoracic spine was performed. FINDINGS: VERTEBRA: Normal vertebral body height. Homogeneous marrow signal. ALIGNMENT: Normal. CORD: Normal position and configuration. T1-T2: Normal. T2-T3: The thecal sac has a normal diameter. No evidence of disc bulge or protrusion. T3-T4: The thecal sac has a normal diameter. No evidence of disc bulge or protrusion. T4-T5: The thecal sac has a normal diameter. No evidence of disc bulge or protrusion. T5-T6: The thecal sac has a normal diameter. No evidence of disc bulge or protrusion. T6-T7: The thecal sac has a normal diameter. No evidence of disc bulge or protrusion. T7-T8: The thecal sac has a normal diameter. No evidence of disc bulge or protrusion. T8-T9: The thecal sac has a normal diameter. No evidence of disc bulge or protrusion. T9-T10: The thecal sac has a normal diameter. No evidence of disc bulge or protrusion. T10-T11: The thecal sac has a normal diameter. No evidence of disc bulge or protrusion. T11-T12: The thecal sac has a normal diameter. No evidence of disc bulge or protrusion. T12-L1: The thecal sac has a normal diameter. No evidence of disc bulge or protrusion. CONCLUSION: 1. Normal examination. Dylon Serrano MD on August 23, 2017 at 14:45 Board Certified Radiologist. This report was verified electronically.
[2017-08-23 15:12] LABS: ANA PATTERN DIFFUSE
[2017-08-23] MEDS: ENOXAPARIN SODIUM 40 MG/0.4 ML SYRINGE SQ SCH (15:23)
--- NOTE | 2017-08-23 16:02 | RADRPT ---
EXAM DATE/TIME: 08/23/2017 12:16 [facility] COMPARISON: No previous studies available for comparison. INDICATIONS : Loss of movement in all extremities. MEDICAL HISTORY : Seizures. SURGICAL HISTORY : section. lumbar surgery ENCOUNTER: Subsequent ACUITY: 1 week PAIN SCORE: 3/10 LOCATION: lower back TECHNIQUE: Multiplanar multisequence MRI of the lumbar spine was performed without contrast. FINDINGS: The most caudal appearing lumbar vertebra is numbered as L5. The same numbering convention is used a s on prior studies; that is, a left laminectomy level is labeled L5-S1. There is normal alignment of vertebral bodies of the lumbar spine preservation of vertebral body height. There is some T1 and T2 shortening the vertebral endplates of L5-S1 agitated degenerative changes. Prominent posterior oste ophytes are present at L5-S1. The conus is located at the level of T12. There is normal hydration o f the discs from T12-L5. Moderate narrowing of the L5-S1 interspace and loss of signal in the disc m aterial. T12-L1: The thecal sac has a normal diameter. No evidence of disc bulge or protrusion. The neural foramina are patent bilaterally. L1-L2: The thecal sac has a normal diameter. No evidence of disc bulge or protrusion. The neural foramina are patent bilaterally. L2-L3: The thecal sac has a normal diameter. No evidence of disc bulge or protrusion. The neural foramina are patent bilaterally. L3-L4: The thecal sac has a normal diameter. No evidence of disc bulge or protrusion. The neural foramina are patent bilaterally. L4-L5: The thecal sac has a normal diameter. No evidence of disc bulge or protrusion. The neural foramina are patent bilaterally. L5-S1: Surgical level with left laminectomy. The thecal sac is normal in configuration. There is asymmetri c SI joint hypertrophy on the right side creates a significant narrowing of the bony no foramina head there is loss of fat about the nerve root within the neural foramen. No evidence of neural impingem ent on the left side. There is central osteophyte formation which is contained within the epidural f at and there is no deformity of the thecal sac. There is poor delineation of the S1 nerve root as it courses through the bony spinal canal. CONCLUSION: 1. Prior left-sided laminectomy at L5-S1. There is evidence of neural impingement of the S1 nerve ro ot on the right side due to facet and endplate hypertrophy as the nerve courses through the bony spin al canal and within the neural foramen. Demarco Briones MD on August 23, 2017 at 15:56 Board Certified Radiologist. This report was verified electronically.
[2017-08-23 16:51] LABS: HEMOGLOBIN A1C 5.3 % (4.3-6.0)
[2017-08-23] MEDS: ATORVASTATIN 40 MG TAB PO SCH (20:08)
[2017-08-23] MEDS: CYCLOBENZAPRINE HCL 10 MG TAB PO PRN (20:09)
[2017-08-23] MEDS: ACETAMINOPHEN 325 MG TAB PO PRN (20:10)
[2017-08-24] VITALS (8 sets, daily range): BP systolic 106–135; BP diastolic 59–73; PULSE 68–89; RESP 16–18; TEMP 97.8–98.4; O2SAT 98–100
[2017-08-24 06:50] LABS: METHYLMALONIC ACID 0.06 nmol/mL (<=0.40)
--- NOTE | 2017-08-24 07:23 | HHI.PR ---
Subjective Remarks asleep now Objective Vital Signs Date Time Temp Pulse Resp B/P (MAP) Pulse Ox O2 Delivery O2 Flow Rate FiO2 08/24/17 04:21 97.9 75 16 135/73 (93) 99 08/24/17 03:50 85 08/24/17 00:09 98.1 78 16 124/67 (86) 100 08/23/17 21:10 98.3 79 16 123/65 (84) 100 08/23/17 12:00 82 08/23/17 08:40 97.6 79 14 107/55 (72) 100 I/O 08/23/17 08/23/17 08/23/17 08/24/17 08/24/17 08/24/17 07:00 15:00 23:00 07:00 15:00 23:00 Output Total 600 ml Balance -600 ml Output Urine Total 600 ml Result Diagram: 08/21/17 1030 Objective Remarks asleep now did not get oob yest Assessment and Plan Assessment and Plan imp randle neg eeg mri echo labs all nl plan is LP an dif this is nl then dc abt and recheck mri and eeg possiblilty would be prolonged postictal state or psychological iv keppra PT [place] spine surgery due to rle weak and that is very unusual in itself i dw mom 08/23/17 improved repeat mri nl caden titer pend but crp nl mri of spine ordered admits depression i really think this is all psychological and am asking psych to consider changing her zoloft in some way see if she can get oob with PT fu mri 08/24/17 mri c t and ls neg x old r s1 have rehab check am emg on her rue and rle spep abn have heme see caden pos 1:640 but crp nl check cpFlorencio Whittaker MD Aug 24, 2017 07:23
[2017-08-24 09:06] LABS: HSV 1,PCR Negative (Negative)
[2017-08-24] MEDS: OXYBUTYNIN CHLORIDE 5 MG TAB PO SCH ×2 (09:39→20:52)
[2017-08-24] MEDS: CIPROFLOXACIN 250 MG TAB PO SCH (09:40)
[2017-08-24] MEDS: SODIUM CHLORIDE 0.9% FLUSH 10 ML FLUSH IV FLUSH SCH ×2 (09:40→20:52)
[2017-08-24] MEDS: SERTRALINE HCL 100 MG TAB PO SCH (09:40)
[2017-08-24] MEDS: DOCUSATE SODIUM 50 MG/SENNA 8.6 MG TAB PO SCH ×2 (09:40→20:52)
[2017-08-24] MEDS: levETIRAcetam 500 MG TAB PO SCH ×2 (09:40→20:52)
[2017-08-24] MEDS: FAMOTIDINE 20 MG TAB PO SCH ×2 (09:40→20:52)
[2017-08-24] MEDS: ENOXAPARIN SODIUM 40 MG/0.4 ML SYRINGE SQ SCH (11:37)
[2017-08-24] MEDS: ACETAMINOPHEN 325 MG TAB PO PRN ×2 (11:38→20:52)
--- NOTE | 2017-08-24 12:50 | HHI.PR ---
Subjective Remarks Follow up for encephalopathy, weakness. The patient is seen with family at bedside. She believes she is doing a little better. She states her speech is returning although still very slow to speak. She reports continued flaccid weakness of the right upper and lower extremity, however having some improved weakness of the left upper and lower extremity. She is still unable to raise her left arm or leg off the bed. She reports her headache has also improved. Denies any other new symptoms. Denies any visual changes, chest pain, palpitations, shortness of breath, or abdominal complaints. She states she is eating well, although family members still have to feed her. She denies any dysphagia or choking on the food. Objective Vitals Vital Signs Date Time Temp Pulse Resp B/P (MAP) Pulse Ox O2 Delivery O2 Flow Rate FiO2 08/24/17 11:57 98.4 82 16 110/65 (80) 99 08/24/17 07:29 98.2 70 16 129/65 (86) 100 08/24/17 04:21 97.9 75 16 135/73 (93) 99 08/24/17 03:50 85 08/24/17 00:09 98.1 78 16 124/67 (86) 100 08/23/17 21:10 98.3 79 16 123/65 (84) 100 I/O 08/23/17 08/23/17 08/23/17 08/24/17 08/24/17 08/24/17 07:00 15:00 23:00 07:00 15:00 23:00 Output Total 600 ml Balance -600 ml Output Urine Total 600 ml Result Diagram: 08/21/17 1030 Imaging Last Impressions Thoracic Spine MRI 08/23/17 0000 Signed Impressions: Service Date/Time: Wednesday, August 23, 2017 12:16 - CONCLUSION: 1. Normal examination. Dylon Serrano MD Lumbar Spine MRI 08/23/17 0000 Signed Impressions: Service Date/Time: Wednesday, August 23, 2017 12:16 - CONCLUSION: 1. Prior left-sided laminectomy at L5-S1. There is evidence of neural impingement of the S1 nerve root on the right side due to facet and endplate hypertrophy as the nerve courses through the bony spinal canal and within the neural foramen. Demarco Briones MD Cervical Spine MRI 08/23/17 0000 Signed Impressions: Service Date/Time: Wednesday, August 23, 2017 12:16 - CONCLUSION: 1. Facet arthritis and degenerated disc as above. No significant spinal stenosis is evident. No abnormal signal is seen within the cervical cord or the brainstem. Dylon Serrano MD Lumbar Puncture Fluoroscopy 08/20/17 0600 Signed Impressions: Service Date/Time: Sunday, August 20, 2017 11:55 - CONCLUSION: Uncomplicated fluoroscopically guided lumbar puncture with pressures as above. Kwesi Campoverde MD Brain MRI 08/20/17 0000 Signed Impressions: Service Date/Time: Sunday, August 20, 2017 17:31 - CONCLUSION: Normal examination. Rodrigo Goldstein MD Head CT 08/18/17 1417 Signed Impressions: Service Date/Time: Friday, August 18, 2017 15:03 - CONCLUSION: Normal examination for a patient of this age. No significant change has occurred. Renan Bucio MD Objective Remarks GENERAL: Well-nourished, well-developed middle aged obese AA female patient in NAD. SKIN: Warm and dry. No rash. HEENT: Normocephalic. Atraumatic. Pupils equal and round. Mucous membranes pink and moist. NECK: Supple. Trachea midline. CARDIOVASCULAR: Regular rate and rhythm. No murmur appreciated. RESPIRATORY: No accessory muscle use. Clear to auscultation. Breath sounds equal bilaterally. GASTROINTESTINAL: Abdomen soft, non-tender, nondistended. Normoactive bowel sounds x4. MUSCULOSKELETAL: No obvious deformities. Extremities without clubbing, cyanosis , or edema. NEUROLOGICAL: Awake and alert. No obvious cranial nerve deficits. Motor grossly within normal limits. Unable to move RUE/RLE. Able to squeeze left hand contracts paralegal strength 3/5, unable to lift arm. Wiggles toes on left foot, does not participate in plantar/dorsiflexion of left foot, and unable to lift left leg off bed. Very slow speech, however not slurred. Raises eyebrows and closes eyes symmetrically and against resistance, however unable to perform full smile although also symmetrical; also unable to puff cheeks. Subjective decreased sensation to light touch and pain of RUE/RLE. Procedures Lumbar puncture Medications and IVs Current Medications Medications (Trade) Dose Ordered Sig/Ninfa Route Start Time Stop Time Status Last Admin (NS Flush) 2 ml UNSCH PRN IV FLUSH 08/18/17 20:30 (NS Flush) 2 ml BID IV FLUSH 08/18/17 21:00 08/24/17 09:40 (Zofran Inj) 4 mg Q6H PRN IVP 08/18/17 20:30 08/18/17 21:48 (Narcan Inj) 0.4 mg UNSCH PRN IV PUSH 08/18/17 20:30 (Ativan Inj) 1 mg Q15M PRN IV PUSH 08/18/17 20:30 (Lipitor) 40 mg HS PO 08/19/17 21:00 08/23/17 20:08 (Ditropan) 5 mg Q12HR PO 08/19/17 09:00 08/24/17 09:39 (Zoloft) 100 mg DAILY PO 08/19/17 09:00 08/24/17 09:40 (Pepcid) 20 mg BID PO 08/19/17 09:00 08/24/17 09:40 (Cipro) 250 mg Q12HR PO 08/21/17 21:00 08/24/17 20:59 08/24/17 09:40 (Keppra) 500 mg Q12HR PO 08/21/17 21:00 08/24/17 09:40 (Flexeril) 10 mg Q8HR PRN PO 08/21/17 16:45 08/23/17 20:09 (Tylenol) 650 mg Q4H PRN PO 08/21/17 22:45 08/24/17 11:38 (Janet-Colace) 2 tab BID PO 08/22/17 09:00 08/24/17 09:40 (Lactulose Liq) 30 ml TID PRN PO 08/22/17 03:45 (Dulcolax Ec) 5 mg DAILY PRN PO 08/22/17 03:45 (Lovenox Inj) 40 mg Q24H SQ 08/22/17 12:00 08/24/17 11:37 A/P Problem List: (1) Encephalopathy ICD Code: G93.40 - Encephalopathy, unspecified Status: Acute (2) Diabetes mellitus ICD Code: E11.9 - Type 2 diabetes mellitus without complications Status: Chronic (3) IVONNE positive ICD Code: R76.8 - Other specified abnormal immunological findings in serum (4) Adjustment disorder with mixed anxiety and depressed mood ICD Code: F43.23 - Adjustment disorder with mixed anxiety and depressed mood (5) Weakness ICD Code: R53.1 - Weakness (6) UTI (urinary tract infection) ICD Code: N39.0 - Urinary tract infection, site not specified (7) Debility ICD Code: R53.81 - Other malaise (8) Impaired activities of daily living ICD Code: R53.81 - Other malaise (9) Seizures ICD Code: R56.9 - Unspecified convulsions Status: Acute Assessment and Plan 41 y/o female with a history of seizures(not on any medication), DM, and CVA with previous right-sided paralysis presented to the ED via [facility] for altered mental status. Acute Neurological Deficit and Encephalopathy, suspect related to seizures vs complex migraine vs psychiatric, symptoms slowly improving however not back to baseline -Head CT and Brain MRI reviewed and shows no acute abnormalities -UDS negative -C-T-L Spine MRI reviewed -Neurology following, appreciate recommendations, possible all psychological in this patient with grossly unremarkable work up thus far except for positive IVONNE. -Positive IVONNE evaluation ordered/pending. -HSV negative. -S/p LP, CSF culture shows no growth. -Continue po Keppra -started on IV Acyclovir, Vancomycin and Ampicillin by neurology but discontinued -Seizure precautions, Neuro checks -Continue with daily PT/OT -ST swallow evaluation advanced to mechanical soft diet/thin liquid diet -Continue to hold all sedating medications -EMG studies ordered by neurology -Hematology consulted by neurology UTI: UCX positive for Klebsiella, pansensitive -Completed treatment with Cipro 250mg BID x 3 days Diabetes, chronic -Hold oral medications -blood sugars have been excellent. Discontinue Accu-Cheks and sliding scale. 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 Ok for discharge per psych. DVT prophylaxis: SCDs, Lovenox sq Discharge Planning Admit to inpatient with ongoing neurological deficit. Discussed with RN, repairer [employer]ge[employer], Case management. Problem Qualifiers (1) Diabetes mellitus: Qualified Codes: E11.9 - Type 2 diabetes mellitus without complications Kathrine Samaniego PA-C Aug 24, 2017 12:50 pm
[2017-08-24] MEDS: ATORVASTATIN 40 MG TAB PO SCH (20:52)
[2017-08-24] MEDS: CYCLOBENZAPRINE HCL 10 MG TAB PO PRN (20:52)
[2017-08-25] VITALS (7 sets, daily range): BP systolic 110–201; BP diastolic 60–85; PULSE 59–84; RESP 16–20; TEMP 97.8–98.6; O2SAT 98–100
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
[2017-08-25] MEDS: levETIRAcetam 500 MG TAB PO SCH ×2 (09:00→21:04)
[2017-08-25] MEDS: SODIUM CHLORIDE 0.9% FLUSH 10 ML FLUSH IV FLUSH SCH ×2 (09:00→21:02)
[2017-08-25] MEDS: DOCUSATE SODIUM 50 MG/SENNA 8.6 MG TAB PO SCH ×2 (09:00→21:03)
[2017-08-25] MEDS: SERTRALINE HCL 100 MG TAB PO SCH (09:00)
[2017-08-25] MEDS: FAMOTIDINE 20 MG TAB PO SCH ×2 (09:00→21:03)
[2017-08-25] MEDS: OXYBUTYNIN CHLORIDE 5 MG TAB PO SCH ×2 (09:00→21:04)
[2017-08-25] MEDS: ACETAMINOPHEN 325 MG TAB PO PRN ×2 (09:24→17:41)
[2017-08-25 09:52] LABS: DNA ABS DS CRITHIDIA IFA 2 IU/mL; RIBOSOMAL P AB <1.0 NEG AI (<1.0 NEGATIVE); SCL-70 AB >8.0 POS AI (<1.0 NEGATIVE); SM AB <1.0 NEG AI (<1.0 NEGATIVE); SM/RNP AB <1.0 NEG AI (<1.0 NEGATIVE)
--- NOTE | 2017-08-25 10:23 | HHI.PR ---
Subjective Remarks Follow up for encephalopathy, weakness. The patient reports feeling "a little" better again today. Still with very slow speech. Still with no movement of right arm or leg, and minimal movement of left arm and leg. She reports constipation, has not had a BM in 3-4 days. She denies any abdominal pain, nausea/vomiting, or fevers/chills. She has no other medical complaints at this time. Discussed with patient and daughter, both want to go home at discharge and would not agree to rehab facility. Objective Vitals Vital Signs Date Time Temp Pulse Resp B/P (MAP) Pulse Ox O2 Delivery O2 Flow Rate FiO2 08/25/17 08:30 97.8 79 20 111/60 (77) 100 08/25/17 04:15 98.1 75 18 142/73 (96) 100 08/25/17 00:33 77 08/24/17 22:02 98.3 89 18 120/59 (79) 100 08/24/17 14:45 97.8 68 16 106/63 (77) 98 08/24/17 11:57 98.4 82 16 110/65 (80) 99 I/O 08/24/17 08/24/17 08/24/17 08/25/17 08/25/17 08/25/17 07:00 15:00 23:00 07:00 15:00 23:00 Output Total 2000 ml Balance -2000 ml Output Urine Total 2000 ml Result Diagram: 08/21/17 1030 Imaging Last Impressions Thoracic Spine MRI 08/23/17 0000 Signed Impressions: Service Date/Time: Wednesday, August 23, 2017 12:16 - CONCLUSION: 1. Normal examination. Dylon Serrano MD Lumbar Spine MRI 08/23/17 0000 Signed Impressions: Service Date/Time: Wednesday, August 23, 2017 12:16 - CONCLUSION: 1. Prior left-sided laminectomy at L5-S1. There is evidence of neural impingement of the S1 nerve root on the right side due to facet and endplate hypertrophy as the nerve courses through the bony spinal canal and within the neural foramen. Demarco Briones MD Cervical Spine MRI 08/23/17 0000 Signed Impressions: Service Date/Time: Wednesday, August 23, 2017 12:16 - CONCLUSION: 1. Facet arthritis and degenerated disc as above. No significant spinal stenosis is evident. No abnormal signal is seen within the cervical cord or the brainstem. Dylon Serrano MD Lumbar Puncture Fluoroscopy 08/20/17 0600 Signed Impressions: Service Date/Time: Sunday, August 20, 2017 11:55 - CONCLUSION: Uncomplicated fluoroscopically guided lumbar puncture with pressures as above. Kwesi Campoverde MD Brain MRI 08/20/17 0000 Signed Impressions: Service Date/Time: Sunday, August 20, 2017 17:31 - CONCLUSION: Normal examination. Rodrigo Goldstein MD Head CT 08/18/17 1417 Signed Impressions: Service Date/Time: Friday, August 18, 2017 15:03 - CONCLUSION: Normal examination for a patient of this age. No significant change has occurred. Renan Bucio MD Objective Remarks GENERAL: Well-nourished, well-developed middle aged obese AA female patient in NAD. SKIN: Warm and dry. No rash. HEENT: Normocephalic. Atraumatic. Pupils equal and round. Mucous membranes pink and moist. NECK: Supple. Trachea midline. CARDIOVASCULAR: Regular rate and rhythm. No murmur appreciated. RESPIRATORY: No accessory muscle use. Clear to auscultation. Breath sounds equal bilaterally. GASTROINTESTINAL: Abdomen soft, non-tender, nondistended. Normoactive bowel sounds x4. MUSCULOSKELETAL: No obvious deformities. Extremities without clubbing, cyanosis , or edema. NEUROLOGICAL: Awake and alert. No obvious cranial nerve deficits. Motor grossly within normal limits. Unable to move RUE/RLE. 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 Wiggles toes on left foot with good strength against toe resistance however then does not participate in plantar/ dorsiflexion of left foot, and unable to lift left leg off bed. Very slow speech, however not slurred. Raises eyebrows and closes eyes symmetrically and against resistance, however unable to perform full smile although also symmetrical; also unable to puff cheeks. Subjective decreased sensation to light touch and pain of RUE/RLE. Procedures Lumbar puncture Medications and IVs Current Medications Medications (Trade) Dose Ordered Sig/Ninfa Route Start Time Stop Time Status Last Admin (NS Flush) 2 ml UNSCH PRN IV FLUSH 08/18/17 20:30 (NS Flush) 2 ml BID IV FLUSH 08/18/17 21:00 08/25/17 09:00 (Zofran Inj) 4 mg Q6H PRN IVP 08/18/17 20:30 08/18/17 21:48 (Narcan Inj) 0.4 mg UNSCH PRN IV PUSH 08/18/17 20:30 (Ativan Inj) 1 mg Q15M PRN IV PUSH 08/18/17 20:30 (Lipitor) 40 mg HS PO 08/19/17 21:00 08/24/17 20:52 (Ditropan) 5 mg Q12HR PO 08/19/17 09:00 08/25/17 09:00 (Zoloft) 100 mg DAILY PO 08/19/17 09:00 08/25/17 09:00 (Pepcid) 20 mg BID PO 08/19/17 09:00 08/25/17 09:00 (Keppra) 500 mg Q12HR PO 08/21/17 21:00 08/25/17 09:00 (Flexeril) 10 mg Q8HR PRN PO 08/21/17 16:45 08/24/17 20:52 (Tylenol) 650 mg Q4H PRN PO 08/21/17 22:45 08/25/17 09:24 (Janet-Colace) 2 tab BID PO 08/22/17 09:00 08/24/17 20:52 (Lactulose Liq) 30 ml TID PRN PO 08/22/17 03:45 (Dulcolax Ec) 5 mg DAILY PRN PO 08/22/17 03:45 (Lovenox Inj) 40 mg Q24H SQ 08/22/17 12:00 08/25/17 12:00 A/P Problem List: (1) Encephalopathy ICD Code: G93.40 - Encephalopathy, unspecified Status: Acute (2) Diabetes mellitus ICD Code: E11.9 - Type 2 diabetes mellitus without complications Status: Chronic (3) VIONNE positive ICD Code: R76.8 - Other specified abnormal immunological findings in serum (4) Adjustment disorder with mixed anxiety and depressed mood ICD Code: F43.23 - Adjustment disorder with mixed anxiety and depressed mood (5) Weakness ICD Code: R53.1 - Weakness (6) UTI (urinary tract infection) ICD Code: N39.0 - Urinary tract infection, site not specified (7) Debility ICD Code: R53.81 - Other malaise (8) Impaired activities of daily living ICD Code: R53.81 - Other malaise (9) Seizures ICD Code: R56.9 - Unspecified convulsions Status: Acute Assessment and Plan 41 y/o female with a history of seizures(not on any medication), DM, and CVA with previous right-sided paralysis presented to the ED via [facility] for altered mental status. Acute Neurological Deficit and Encephalopathy, suspect related to seizures vs complex migraine vs psychiatric, symptoms slowly improving however not back to baseline -Head CT and Brain MRI reviewed and shows no acute abnormalities -UDS negative -C-T-L Spine MRI reviewed -Neurology following, appreciate recommendations, possible all psychological in this patient with grossly unremarkable work up thus far except for positive IVONNE. -Positive IVONNE evaluation ordered/pending. -HSV negative. -S/p LP, CSF culture shows no growth. -Continue po Keppra -started on IV Acyclovir, Vancomycin and Ampicillin by neurology but discontinued -Seizure precautions, Neuro checks -Continue with daily PT/OT -ST swallow evaluation advanced to mechanical soft diet/thin liquid diet -Continue to hold all sedating medications -Rehab consulted for EMG studies ordered by neurology -Hematology consulted, appreciate input UTI: UCX positive for Klebsiella, pansensitive -Completed treatment with Cipro 250mg BID x 3 days Diabetes, chronic -Hold oral medications -blood sugars have been excellent. Discontinue Accu-Cheks and sliding scale. 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 Ok for discharge per psych. Constipation: patient reporting no BM x3-4days -start on Janet-Colace 2tabs po bid and give MOM x1 now -monitor for BM -continue constipation protocol meds as needed DVT prophylaxis: SCDs, Lovenox sq Discharge Planning Admitted to inpatient with ongoing neurological deficit. Discussed with RN, legal records manager, Case management. Patient and mother refusing any placement and will plan to take the patient home at discharge. Mother requesting hospital bed, instructed this needs to be ordered by PCP. Problem Qualifiers (1) Diabetes mellitus: Qualified Codes: E11.9 - Type 2 diabetes mellitus without complications Kathrine Samaniego PA-C Aug 25, 2017 10:23 am
[2017-08-25] MEDS ORDERED: DOCUSATE SODIUM 50 MG/SENNA 8.6 MG TAB PO SCH (10:30)
[2017-08-25 11:51] LABS: C3 SERUM 139 mg/dL (83-193); C4 SERUM 30 mg/dL (15-57); RHEUMATOID FACTOR 8 IU/mL (<14)
[2017-08-25] MEDS: ENOXAPARIN SODIUM 40 MG/0.4 ML SYRINGE SQ SCH (12:00)
[2017-08-25 12:05] LABS: IMMUNOGLOBULIN A 137 MG/DL (75-416); IMMUNOGLOBULIN G 1440 MG/DL (690-1700); IMMUNOGLOBULIN M 41 MG/DL (57-348)
[2017-08-25] MEDS ORDERED: MAGNESIUM HYDROXIDE SUSP 30 ML CUP PO ONE (12:30)
[2017-08-25] MEDS: CYCLOBENZAPRINE HCL 10 MG TAB PO PRN (21:03)
[2017-08-25] MEDS: ATORVASTATIN 40 MG TAB PO SCH (21:03)
[2017-08-25 23:51] LABS: CSF CRYPTOCOCCUS ANTIGEN NOT DETECTED (NEGATIVE)
[2017-08-26] VITALS: BP 105/58; PULSE 70; PULSE 73; RESP 18; TEMP 98.7; O2SAT 100
[2017-08-26 03:51] LABS: ACTIN AB IGG <20 U
[2017-08-26 04:00] VITALS: BP 120/72; PULSE 67; PULSE 75; RESP 18; TEMP 98.2; O2SAT 100
[2017-08-26 08:00] VITALS: BP 117/62; PULSE 69; PULSE 83; RESP 16; TEMP 97.3; O2SAT 100
--- NOTE | 2017-08-26 08:33 | HHI.PR ---
Subjective Remarks wide awake was in chair yest Objective Vital Signs Date Time Temp Pulse Resp B/P (MAP) Pulse Ox O2 Delivery O2 Flow Rate FiO2 08/26/17 04:00 98.2 67 18 120/72 (88) 100 08/26/17 04:00 75 08/26/17 00:00 98.7 70 18 105/58 (74) 100 08/26/17 00:00 73 08/25/17 21:45 98.6 84 18 124/61 (82) 100 08/25/17 18:47 21 08/25/17 16:19 98.3 84 18 121/75 (90) 100 08/25/17 12:13 98.5 80 18 110/62 (78) 100 I/O 08/25/17 08/25/17 08/25/17 08/26/17 08/26/17 08/26/17 07:00 15:00 23:00 07:00 15:00 23:00 Output Total 400 ml Balance -400 ml Output Urine Total 400 ml Objective Remarks awake speech slow and moving lue and lle not right Assessment and Plan Assessment and Plan imp randle neg eeg mri echo labs all nl plan is LP an dif this is nl then dc abt and recheck mri and eeg possiblilty would be prolonged postictal state or psychological iv chel PT she was in [place] for months after ls spine surgery due to rle weak and that is very unusual in itself i dw mom 08/23/17 improved repeat mri nl caden titer pend but crp nl mri of spine ordered admits depression i really think this is all psychological and am asking psych to consider changing her zoloft in some way see if she can get oob with PT fu mri 08/24/17 mri c t and ls neg x old r s1 have rehab check am emg on her rue and rle spep abn have heme see caden pos 1:640 but crp nl check cpk 08/26/17 slowly better i dw rehab they will do emg today caden pos and scleroderma pos abn spep heme on case should see rheum o/p if emg neg ok by me to dc it still looks primarily psychological as far as i can tell i am interested to know how they got her in chair yest if she is so weak Florencio Angelo MD Aug 26, 2017 08:33
[2017-08-26] MEDS: SERTRALINE HCL 100 MG TAB PO SCH (08:43)
[2017-08-26] MEDS: SODIUM CHLORIDE 0.9% FLUSH 10 ML FLUSH IV FLUSH SCH (08:43)
[2017-08-26] MEDS: DOCUSATE SODIUM 50 MG/SENNA 8.6 MG TAB PO SCH (08:43)
[2017-08-26] MEDS: OXYBUTYNIN CHLORIDE 5 MG TAB PO SCH (08:43)
[2017-08-26] MEDS: FAMOTIDINE 20 MG TAB PO SCH (08:43)
[2017-08-26] MEDS: levETIRAcetam 500 MG TAB PO SCH (08:44)
[2017-08-26] MEDS: CYCLOBENZAPRINE HCL 10 MG TAB PO PRN ×2 (08:53→18:20)
[2017-08-26] MEDS ORDERED: POLYETHYLENE GLYCOL 17 GM PKG PO SCH (09:00)
[2017-08-26] MEDS: ACETAMINOPHEN 325 MG TAB PO PRN ×2 (10:26→18:24)
[2017-08-26 11:15] LABS: BETA-2-MICROGLOBULIN 1.88 mcg/mL (1.21 - 2.70)
[2017-08-26 12:00] VITALS: BP 120/72; PULSE 88; PULSE 95; RESP 16; TEMP 97.2; O2SAT 100
[2017-08-26] MEDS ORDERED: HOSP BED1 (12:20)
[2017-08-26] MEDS: ENOXAPARIN SODIUM 40 MG/0.4 ML SYRINGE SQ SCH (12:27)
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
[2017-08-26 16:00] VITALS: BP 116/63; PULSE 73; PULSE 95; RESP 16; TEMP 98.3; O2SAT 100
[2017-08-26] MEDS ORDERED: LEVE500 PO (16:18)
[2017-08-26] MEDS ORDERED: ENOX40P SQ (16:18)
--- NOTE | 2017-08-26 16:23 | HHI.PR ---
Subjective Remarks In complaint of back ache and headache, mother at the bedside She is oriented to place time, I discussed with the nurse and shelter case manager and PT patient will need hospital bed per PT recommendation at discharge due to weakness Objective Vitals Vital Signs Date Time Temp Pulse Resp B/P (MAP) Pulse Ox O2 Delivery O2 Flow Rate FiO2 08/26/17 16:00 95 08/26/17 14:26 Room Air 08/26/17 12:00 95 08/26/17 12:00 97.2 88 16 120/72 (88) 100 08/26/17 08:00 83 08/26/17 08:00 97.3 69 16 117/62 (80) 100 08/26/17 08:00 Room Air 08/26/17 04:00 98.2 67 18 120/72 (88) 100 08/26/17 04:00 75 08/26/17 00:00 98.7 70 18 105/58 (74) 100 08/26/17 00:00 73 08/25/17 21:45 98.6 84 18 124/61 (82) 100 08/25/17 18:47 21 I/O 08/25/17 08/25/17 08/25/17 08/26/17 08/26/17 08/26/17 07:00 15:00 23:00 07:00 15:00 23:00 Output Total 400 ml Balance -400 ml Output Urine Total 400 ml Objective Remarks GENERAL: This is a well-nourished, well-developed patient, in no apparent distress. SKIN: No rashes, warm and dry HEAD: Atraumatic. Normocephalic. EYES: Pupils equal round and reactive. Extraocular motions intact. No scleral icterus. ENT: Nose without bleeding, or drainage, Airway patent. NECK: Trachea midline. Supple CARDIOVASCULAR: Regular rate and rhythm without murmurs, gallops, or rubs. RESPIRATORY: Fair air entry bilaterally. No wheezes, rales, or rhonchi. GASTROINTESTINAL: Abdomen soft, non-tender, nondistended. Positive bowel sounds MUSCULOSKELETAL: Extremities without clubbing, cyanosis, or edema. Pedal pulses appreciated NEUROLOGICAL: Revealed weakness in the RUE/RLE. 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 Weakness in plantar/dorsiflexion of left foot, and unable to lift left leg off bed. Very slow speech, however not slurred. Procedures Lumbar puncture A/P Problem List: (1) Encephalopathy ICD Code: G93.40 - Encephalopathy, unspecified Status: Acute (2) Diabetes mellitus ICD Code: E11.9 - Type 2 diabetes mellitus without complications Status: Chronic (3) IVONNE positive ICD Code: R76.8 - Other specified abnormal immunological findings in serum (4) Adjustment disorder with mixed anxiety and depressed mood ICD Code: F43.23 - Adjustment disorder with mixed anxiety and depressed mood (5) Weakness ICD Code: R53.1 - Weakness (6) UTI (urinary tract infection) ICD Code: N39.0 - Urinary tract infection, site not specified (7) Debility ICD Code: R53.81 - Other malaise (8) Impaired activities of daily living ICD Code: R53.81 - Other malaise (9) Seizures ICD Code: R56.9 - Unspecified convulsions Status: Acute Assessment and Plan 41 y/o female with a history of seizures(not on any medication), DM, and CVA with previous right-sided paralysis presented to the ED via [facility] for altered mental status. 4/5: Cleared by neurology to be discharged home, discussed with PT they recommended hospital bed I ordered that for 2 months to be reevaluated by PCP Acute Neurological Deficit and Encephalopathy, suspect related to seizures vs complex migraine vs psychiatric, symptoms slowly improving however not back to baseline -Head CT and Brain MRI reviewed and shows no acute abnormalities -UDS negative -C-T-L Spine MRI reviewed -Neurology following, appreciate recommendations, possible all psychological in this patient with grossly unremarkable work up thus far except for positive IVONNE. -Positive IVONNE evaluation ordered/pending. -HSV negative. -S/p LP, CSF culture shows no growth. -Continue po Keppra -started on IV Acyclovir, Vancomycin and Ampicillin by neurology but discontinued -Seizure precautions, Neuro checks -Continue with daily PT/OT -ST swallow evaluation advanced to mechanical soft diet/thin liquid diet -Continue to hold all sedating medications -Rehab consulted for EMG studies ordered by neurology -Hematology consulted, appreciate input UTI: UCX positive for Klebsiella, pansensitive -Completed treatment with Cipro 250mg BID x 3 days Diabetes, chronic -Hold oral medications -blood sugars have been excellent. Discontinue Accu-Cheks and sliding scale. 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 Ok for discharge per psych. Constipation: patient reporting no BM x3-4days -start on Janet-Colace 2tabs po bid and give MOM x1 now -monitor for BM -continue constipation protocol meds as needed DVT prophylaxis: SCDs, Lovenox sq Discharge Planning Home with home health today Problem Qualifiers (1) Diabetes mellitus: Qualified Codes: E11.9 - Type 2 diabetes mellitus without complications Aracely Harris MD Aug 26, 2017 16:23
--- NOTE | 2017-08-26 16:29 | HHI.DS ---
Discharge Summary Admission Date Aug 24, 2017 at 12:56 Admitting Diagnosis altered mental status (1) Encephalopathy ICD Code: G93.40 - Encephalopathy, unspecified Status: Acute (2) Diabetes mellitus ICD Code: E11.9 - Type 2 diabetes mellitus without complications Status: Chronic (3) IVONNE positive ICD Code: R76.8 - Other specified abnormal immunological findings in serum (4) Adjustment disorder with mixed anxiety and depressed mood ICD Code: F43.23 - Adjustment disorder with mixed anxiety and depressed mood (5) Weakness ICD Code: R53.1 - Weakness (6) UTI (urinary tract infection) ICD Code: N39.0 - Urinary tract infection, site not specified (7) Debility ICD Code: R53.81 - Other malaise (8) Impaired activities of daily living ICD Code: R53.81 - Other malaise (9) Seizures ICD Code: R56.9 - Unspecified convulsions Status: Acute Procedures Lumbar puncture Brief History - From Admission 41 y/o female with a history of seizures(not on any medication), DM, and CVA with previous right-sided paralysis presented to the ED via [facility] for altered mental status. Patient is unresponsive and only opens eyes to painful stimuli. Mom is at bedside and is able to provide history and some of the patient's story line. Patient was at home today, eating breakfast normally and when her mom went to the store she was called and the patient's daughter whose states that while the patient was using the commode and went unresponsive in her life alert button was pushed and [facility] was called. Mom states in May she was diagnosed with seizures, but is unsure if she was placed on seizure medications and she has not followed up with a neurologist. While in the emergency room mom states patient had 2 episodes of jerking/shaking movements which she thought was seizure activity. Patient does have a caregiver named Viviana who states she is not on any seizure medications at home, and is going to bring in patient's medication list. Review of systems is limited due to patient's level of consciousness. Patient only opens eyes to voice and pain, she does not withdrawal any extremities to pain and no spontaneous movement noted on examination. Mom does not think patient has been sick or complaining of any other symptoms prior to today. Significant Findings Laboratory Tests Test 08/24/17 09:31 08/25/17 08:27 08/26/17 05:27 Immunoglobulin M 41 MG/DL (57-348) PE at Discharge GENERAL: This is a well-nourished, well-developed patient, in no apparent distress. SKIN: No rashes, warm and dry HEAD: Atraumatic. Normocephalic. EYES: Pupils equal round and reactive. Extraocular motions intact. No scleral icterus. ENT: Nose without bleeding, or drainage, Airway patent. NECK: Trachea midline. Supple CARDIOVASCULAR: Regular rate and rhythm without murmurs, gallops, or rubs. RESPIRATORY: Fair air entry bilaterally. No wheezes, rales, or rhonchi. GASTROINTESTINAL: Abdomen soft, non-tender, nondistended. Positive bowel sounds MUSCULOSKELETAL: Extremities without clubbing, cyanosis, or edema. Pedal pulses appreciated NEUROLOGICAL: Revealed weakness in the RUE/RLE. 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 Weakness in plantar/dorsiflexion of left foot, and unable to lift left leg off bed. Very slow speech, however not slurred. Hospital Course 41 y/o female with a history of seizures(not on any medication), DM, and CVA with previous right-sided paralysis presented to the ED via [facility] for altered mental status. Acute Neurological Deficit and Encephalopathy, suspect related to seizures vs complex migraine vs psychiatric, symptoms slowly improving however not back to baseline -Head CT and Brain MRI reviewed and shows no acute abnormalities -UDS negative -C-T-L Spine MRI reviewed -Neurology following, appreciate recommendations, possible all psychological in this patient with grossly unremarkable work up thus far except for positive IVONNE. -Positive IVONNE evaluation ordered/pending. -HSV negative. -S/p LP, CSF culture shows no growth. -Continue po Keppra -started on IV Acyclovir, Vancomycin and Ampicillin by neurology but discontinued -Seizure precautions, Neuro checks -Continue with daily PT/OT -ST swallow evaluation advanced to mechanical soft diet/thin liquid diet -Continue to hold all sedating medications -Rehab consulted for EMG studies ordered by neurology -Hematology consulted, appreciate input 08/26: Cleared by neurology to be discharged home, discussed with PT they recommended hospital bed I ordered that for 2 months to be reevaluated by PCP UTI: UCX positive for Klebsiella, pansensitive -Completed treatment with Cipro 250mg BID x 3 days Diabetes, chronic -Hold oral medications -blood sugars have been excellent. Discontinue Accu-Cheks and sliding scale. 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 Ok for discharge per psych. Constipation: patient reporting no BM x3-4days -start on Janet-Colace 2tabs po bid and give MOM x1 now -monitor for BM -continue constipation protocol meds as needed DVT prophylaxis: SCDs, Lovenox sq Pt Condition on Discharge: Stable Discharge Disposition: Disch w/ Home Health Serv Discharge Time: > 30 minutes Discharge Instructions DIET: Follow Instructions for: Heart Healthy Diet, Diabetic Diet Speech Therapy-Diet Recommends: Mechanical Soft Activities you can perform: See Additionl Instruction Other Activity Instructions: per physical therapy recommendations Aracely Harris MD Aug 26, 2017 16:29
[2017-08-26 23:53] LABS: KAPPA/LAMBDA FREE 0.49 (0.26-1.65)
[2017-08-27 03:52] LABS: MITOCHONDRIAL AB NEGATIVE (NEGATIVE); MITOCHONDRIAL AB TITER ND (<1:20)
== END 2017-08-26 18:50 | disposition home health service (06) | DRG 71 ==
LOC: NEPC 14:04 → NEDA 19:25 → NEPHCDU 21:04 → OBSVTOIN 08-24 12:56 → N04A 08-25 21:42
PROVIDERS: ADMIT Hospitalist; ATTEND Hospitalist
PROC: 009U3ZX Drainage of Spinal Canal, Percutaneous Approach, Diagnostic (ICD-10-PCS; 2017-08-20)
PROC: B01BZZZ Fluoroscopy of Spinal Cord (ICD-10-PCS; 2017-08-20)
PROC: 05HQ33Z Insertion of Infusion Device into Left External Jugular Vein, Percutaneous Approach (ICD-10-PCS; principal; 2017-08-21)
DX: G93.40 Encephalopathy, unspecified (principal); I69.351 Hemiplegia and hemiparesis following cerebral infarction affecting right dominant side; R56.9 Unspecified convulsions; D47.2 Monoclonal gammopathy; B96.1 Klebsiella pneumoniae [K. pneumoniae] as the cause of diseases classified elsewhere; N39.0 Urinary tract infection, site not specified; G83.4 Cauda equina syndrome; E11.9 Type 2 diabetes mellitus without complications; G43.809 Other migraine, not intractable, without status migrainosus; R76.8 Other specified abnormal immunological findings in serum; F43.23 Adjustment disorder with mixed anxiety and depressed mood; E87.6 Hypokalemia; K59.00 Constipation, unspecified; M54.2 Cervicalgia; M54.9 Dorsalgia, unspecified; R53.1 Weakness; R47.81 Slurred speech; R40.2432 Glasgow coma scale score 3-8, at arrival to emergency department; F17.210 Nicotine dependence, cigarettes, uncomplicated; Z99.3 Dependence on wheelchair; Z79.84 Long term (current) use of oral hypoglycemic drugs
CPT/HCPCS: 36011; 36600; 62270; 70450; 70553; 72141; 72146; 72148; 76937; 77003; 80048; 80053; 80307; 81001; 81050; 82140; 82232; 82550; 82607; 82746; 82784; 82805; 82945; 82948; 83036; 83516; 83605; 83615; 83883; 83921; 84156; 84157; 84165; 84166; 84425; 84443; 84484; 84702; 85025; 85027; 85610; 85652; 85730; 86038; 86039; 86140; 86160; 86225; 86235; 86255; 86335; 86403; 86430; 86431; 86592; 87015; 87070; 87077; 87086; 87102; 87116; 87186; 87205; 87206; 87529; 89051; 93005; 93225; 93226; 93306; 95819; 96361; 96365; 96366; 96367; 96368; 96372; 96375; A9579; G0378; G8987-GO; G8987-GP; G8988-GO; G8988-GP; J0133; J0290; J1644; J1650; J1953; J2250; J2405; J3010; J3370; J3480; J7030; J7040

== ENCOUNTER 2017-09-01 19:02 | Observation (INO) | payer OTHER ==
[~2017-09-01] VITALS: Ht 175.3 cm; Wt 95.0 kg
[~2017-09-01 19:02] MED LIST changes: +ATOR40TA16 PO; +ENOX40P SQ; +HOSP BED1; +LEVE500 PO
[2017-09-01 19:41] VITALS: BP 136/77; PULSE 88; RESP 16; TEMP 99.1; O2SAT 100
[2017-09-01] MEDS ORDERED: SODIUM CHLORIDE 0.9% FLUSH 10 ML FLUSH IV FLUSH PRN ×2 (19:45→23:00)
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
[2017-09-01 21:00] VITALS: BP 123/72; PULSE 84; RESP 16; O2SAT 100
[2017-09-01 21:47] LABS: BASOPHIL % 0.8 % (0.0-2.0); EOSINOPHIL # 0.3 TH/MM3 (0-0.4); EOSINOPHIL % 4.6 % (0.0-4.0); HEMOGLOBIN 12.9 GM/DL (11.6-15.3); LYMPH % 48.7 % (9.0-44.0); MEAN CELL VOLUME 82.7 FL (80.0-100.0); MEAN CORPUSCULAR HEMOGLOBIN 27.3 PG (27.0-34.0); MEAN CORPUSCULAR HGB CONC 33.1 % (32.0-36.0); MEAN PLATELET VOLUME 8.4 FL (7.0-11.0); MONOCYTE # 0.8 TH/MM3 (0-0.9); NEUT % 32.9 % (16.0-70.0); PLATELET COUNT 379 TH/MM3 (150-450); RED BLOOD COUNT 4.71 MIL/MM3 (4.00-5.30); RED CELL DISTRIBUTION WIDTH 14.2 % (11.6-17.2); WHITE BLOOD COUNT 6.1 TH/MM3 (4.0-11.0)
[2017-09-01 21:54] LABS: BILIRUBIN, URINE NEG (NEG); BLOOD, URINE NEG (NEG); GLUCOSE,URINE NEG (NEG); KETONE, URINE NEG (NEG); MUCUS URINE FEW /lpf (OCC); NITRITE,URINE NEG (NEG); PH, URINE 5.5 (5.0-8.5); SQUAMOUS EPITHELIAL CELL URINE 3 /hpf (0-5); URINE COLOR YELLOW (YELLW/STRAW); URINE LEUKOCYTE ESTERASE NEG (NEG)
[2017-09-01 21:59] LABS: INTERNATIONAL NORMALIZED RATIO 1.1 RATIO; PROTHROMBIN TIME - PATIENT 10.8 SEC (9.8-11.6)
[2017-09-01 22:08] LABS: ALBUMIN 3.4 GM/DL (3.4-5.0); AST (GOT) 24 U/L (15-37); BICARBONATE 27.3 MEQ/L (21.0-32.0); BLOOD UREA NITROGEN 6 MG/DL (7-18); CALCIUM 8.9 MG/DL (8.5-10.1); CHLORIDE 106 MEQ/L (98-107); CREATININE 0.69 MG/DL (0.50-1.00); GLOMERULAR FILTRATION RATE 115 ML/MIN (>89); GLUCOSE,RANDOM 84 MG/DL (74-106); SODIUM (NA) 140 MEQ/L (136-145)
[2017-09-01 22:09] LABS: ALT (GPT) 33 U/L (10-53)
[2017-09-01 22:18] LABS: ALKALINE PHOSPHATASE 80 U/L (45-117); TOTAL BILIRUBIN ADULT 0.2 MG/DL (0.2-1.0); TROPONIN I LESS THAN 0.02 NG/ML (0.02-0.05)
--- NOTE | 2017-09-01 22:20 | RADRPT ---
EXAM DATE/TIME: 09/01/2017 22:00 [facility] COMPARISON: No previous studies available for comparison. INDICATIONS : Cephalgia, altered mental status. RADIATION DOSE: 43.39 CTDIvol (mGy) MEDICAL HISTORY : Cardiovascular disease. Seizures. Diabetes. CVA. SURGICAL HISTORY : None. ENCOUNTER: Initial ACUITY: 1 day PAIN SCALE: 10/10 LOCATION: cranial TECHNIQUE: Multiple contiguous axial images were obtained of the head. Using automated exposure control and adj ustment of the mA and/or kV according to patient size, radiation dose was kept as low as reasonably a chievable to obtain optimal diagnostic quality images. DICOM format image data is available electro nically for review and comparison. FINDINGS: CEREBRUM: The ventricles are normal for age. No evidence of midline shift, mass lesion, hemorrhage or acute in farction. No extra-axial fluid collections are seen. POSTERIOR FOSSA: The cerebellum and brainstem are intact. The 4th ventricle is midline. The cerebellopontine angle i s unremarkable. EXTRACRANIAL: The visualized portion of the orbits is intact. SKULL: The calvaria is intact. No evidence of skull fracture. CONCLUSION: 1. No acute intracranial abnormality. Mychal Del Rosario MD on September 01, 2017 at 22:15 Board Certified Radiologist. This report was verified electronically.
[2017-09-01 23:00] VITALS: BP 135/73; PULSE 84; RESP 16; O2SAT 100
[2017-09-01] MEDS ORDERED: GLUCAGON 1 MG/ML VIAL OTHER PRN (23:00)
[2017-09-01] MEDS ORDERED: LACTULOSE SYRUP 20 GM/30 ML CUP PO PRN (23:00)
[2017-09-01] MEDS ORDERED: ACETAMINOPHEN 325 MG TAB PO PRN (23:00)
[2017-09-01] MEDS ORDERED: DEXTROSE 50% IN WATER 50 ML VIAL(D50) IV PUSH PRN (23:00)
[2017-09-01] MEDS ORDERED: NALOXONE HCL 0.4 MG/ML AMP IV PUSH PRN (23:00)
[2017-09-01] MEDS ORDERED: SENNOSIDES 8.6 MG TAB PO PRN (23:00)
[2017-09-01] MEDS ORDERED: BISACODYL 10 MG SUPP RECTAL PRN (23:00)
[2017-09-01] MEDS ORDERED: MAGNESIUM HYDROXIDE SUSP 30 ML CUP PO PRN (23:00)
[2017-09-01] MEDS ORDERED: ONDANSETRON HCL 4 MG/2 ML VIAL IVP PRN (23:00)
[2017-09-01] MEDS: DEXT 5%-NACL 0.9% 1000 ML INJ 1,000 ML IV SCH (23:01)
--- NOTE | 2017-09-01 23:30 | HHI.HP ---
[facility] Primary Care Physician Leon Mckeon MD (Paul) Admission Diagnosis Generalized weakness Diagnoses: Chief Complaint: weakness Travel History International Travel<30 Days: No Contact w/Intl Traveler <30 Da: No Traveled to Known Affected Are: No History of Present Illness 41 y/o female with a history of seizures, DM, and CVA with previous right-sided paralysis presented to the ED for increased weakness. Patient was recently discharged on August 26. Per the family patient was feeling weak, and they did not want her passing out so they brought called EVAC. When Evac arrived her blood sugar was low. Family states patient ate Oatmeal breakfast, 2 peanut butter/jelly sandwiches, banana and two tacos. Family is unsure what medications were given, family states patient puts her own meds in her pill box and they just give it to her. Unsure if she received multiple doses of medications. 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 Family states they do not have HHC or a hospital bed, since last admission they have not heard if she was approved. They state the company called and needed a diagnosis code before the bed could be delivered. According to last admission case management note HHC was suppose to be set up and a bed was to be delivered. Patient was examined and opens eyes to pain and voice. She does not speak, and family states she only says some words. Review of Systems ROS Limitations: Speech Impaired Past Family Social History Past Medical History cauda equina syndrome Diabetes Anxiety Depression Past Surgical History Lumbar spine surgery Reported Medications Reported Meds & Active Scripts Active Keppra (Levetiracetam) 500 Mg Tab 500 Mg PO Q12HR Lovenox Inj (Enoxaparin Sodium) 40 Mg/0.4 Ml Syr 40 Mg SQ Q24H Hospital Bed - Electric 1 Ea Ea Ea .XX DIRECTED Eq Acetaminophen (Acetaminophen) 325 Mg Tab 650 Mg PO Q4H PRN Reported Atorvastatin (Atorvastatin Calcium) 40 Mg Tab 40 Mg PO HS Zoloft (Sertraline HCl) 100 Mg Tab 100 Mg PO DAILY Zantac (Ranitidine HCl) 150 Mg Tab 150 Mg PO BID Ditropan (Oxybutynin Chloride) 5 Mg Tab 5 Mg PO Q12HR Metformin (Metformin HCl) 500 Mg Tab 500 Mg PO DAILY With a meal Gabapentin 600 Mg Tab 600 Mg PO TID Flexeril (Cyclobenzaprine HCl) 10 Mg Tab 10 Mg PO TID Allergies: Coded Allergies: meloxicam (Unverified Allergy, Severe, Swelling, 09/01/17) promethazine (Unverified Allergy, Severe, EDEMA, 09/01/17) Active Ordered Medications Current Medications Medications (Trade) Dose Ordered Sig/Ninfa Route Start Time Stop Time Status Last Admin Dextrose/Sodium Chloride 1,000 ml @ 75 mls/hr [id number] IV 09/01/17 22:54 09/01/17 23:01 (NS Flush) 2 ml UNSCH PRN IV FLUSH 09/01/17 23:00 (NS Flush) 2 ml BID IV FLUSH 09/02/17 09:00 (Tylenol) 650 mg Q4H PRN PO 09/01/17 23:00 (Zofran Inj) 4 mg Q6H PRN IVP 09/01/17 23:00 (Narcan Inj) 0.4 mg UNSCH PRN IV PUSH 09/01/17 23:00 (Janet-Colace) 1 tab BID PO 09/02/17 09:00 (Milk Of Magnesia Liq) 30 ml Q12H PRN PO 09/01/17 23:00 (Senokot) 17.2 mg Q12H PRN PO 09/01/17 23:00 (Dulcolax Supp) 10 mg DAILY PRN RECTAL 09/01/17 23:00 (Lactulose Liq) 30 ml DAILY PRN PO 09/01/17 23:00 (Heparin Inj) 5,000 units Q8HR SQ 09/02/17 06:00 (D50w (Vial) Inj) 50 ml UNSCH PRN IV PUSH 09/01/17 23:00 09/01/17 23:16 (Glucagon Inj) 1 mg UNSCH PRN OTHER 09/01/17 23:00 (NovoLOG SUPPLEMENTAL SCALE) 1 ACHS SLIDING SCALE SQ 09/02/17 08:00 (Lipitor) 40 mg HS PO 09/02/17 21:00 (Keppra) 500 mg Q12HR PO 09/02/17 09:00 (Ditropan) 5 mg Q12HR PO 09/02/17 09:00 (Zoloft) 100 mg DAILY PO 09/02/17 09:00 (Pepcid) 20 mg BID PO 09/02/17 09:00 Family History Mom: Alopecia, hypertension Social History Tobacco use:1/2 PPD Alcohol use: Denies Physical Exam Vital Signs Vital Signs Date Time Temp Pulse Resp B/P (MAP) Pulse Ox O2 Delivery O2 Flow Rate FiO2 09/01/17 21:00 84 16 123/72 (89) 100 Room Air 09/01/17 19:41 99.1 88 16 136/77 (96) 100 Physical Exam GENERAL: This is a well-nourished, well-developed patient, in no apparent distress. SKIN: No rashes, ecchymoses or lesions. Cool and dry. HEAD: Atraumatic. Normocephalic. No temporal or scalp tenderness. EYES: Pupils equal round and reactive. ENT: Nose without bleeding, purulent drainage or septal hematoma. Airway patent. CARDIOVASCULAR: Regular rate and rhythm without murmurs, gallops, or rubs. RESPIRATORY: Clear to auscultation. Breath sounds equal bilaterally. No wheezes , rales, or rhonchi. GASTROINTESTINAL: Abdomen soft, non-tender, nondistended. No guarding. MUSCULOSKELETAL: Extremities without clubbing, cyanosis, or edema. No calf tenderness. NEUROLOGICAL: Lethargic. Motor and sensory grossly within normal limits. Right side flaccid, left side limited Normal speech. Laboratory Laboratory Tests Test 09/01/17 20:05 09/01/17 20:40 Urine Color YELLOW Urine Turbidity CLEAR Urine pH 5.5 Urine Specific [place] 1.022 Urine Protein NEG Urine Glucose (UA) NEG Urine Ketones NEG Urine Occult Blood NEG Urine Nitrite NEG Urine Bilirubin NEG Urine Urobilinogen LESS THAN 2.0 Urine Leukocyte Esterase NEG Urine WBC 1 Urine Squamous Epithelial Cells 3 Urine Mucus FEW Microscopic Urinalysis Comment CATH-CULT NOT IND Urine Opiates Screen POS Urine Barbiturates Screen NEG Urine Amphetamines Screen NEG Urine Benzodiazepines Screen NEG Urine Cocaine Screen NEG Urine Cannabinoids Screen NEG White Blood Count 6.1 Red Blood Count 4.71 Hemoglobin 12.9 Hematocrit 39.0 Mean Corpuscular Volume 82.7 Mean Corpuscular Hemoglobin 27.3 Mean Corpuscular Hemoglobin Concent 33.1 Red Cell Distribution Width 14.2 Platelet Count 379 Mean Platelet Volume 8.4 Neutrophils (%) (Auto) 32.9 Lymphocytes (%) (Auto) 48.7 Monocytes (%) (Auto) 13.0 Eosinophils (%) (Auto) 4.6 Basophils (%) (Auto) 0.8 Neutrophils # (Auto) 2.0 Lymphocytes # (Auto) 3.0 Monocytes # (Auto) 0.8 Eosinophils # (Auto) 0.3 Basophils # (Auto) 0.0 CBC Comment DIFF FINAL Differential Comment Prothrombin Time 10.8 Prothromb Time International Ratio 1.1 Activated Partial Thromboplast Time 26.1 Blood Urea Nitrogen 6 Creatinine 0.69 Random Glucose 84 Total Protein 8.0 Albumin 3.4 Calcium Level 8.9 Alkaline Phosphatase 80 Aspartate Amino Transf (AST/SGOT) 24 Alanine Aminotransferase (ALT/SGPT) 33 Total Bilirubin 0.2 Sodium Level 140 Potassium Level 3.7 Chloride Level 106 Carbon Dioxide Level 27.3 Anion Gap 7 Estimat Glomerular Filtration Rate 115 Ammonia 29 Total Creatine Kinase 247 Creatine Kinase MB 5.0 Creatine Kinase MB % 2.0 Troponin I LESS THAN 0.02 Thyroid Stimulating Hormone 3rd Gen 1.950 Ethyl Alcohol Level LESS THAN 3 Result Diagram: 09/01/17203909/01/172039 Imaging Last Impressions Head CT 09/01/171941 Signed Impressions: Service Date/Time: Friday, September 01, 2017 22:00 - CONCLUSION: 1. No acute intracranial abnormality. Mychal Del Rosario MD [place] VTE Risk Assessment Caprini VTE Risk Assessment: Mod/High Risk (score >= 2) Caprini Risk Assessment Model Point Value = 1 Point Value = 2 Point Value = 3 Point Value = 5 Age 41-60 Minor surgery BMI > 25 kg/m2 Swollen legs Varicose veins or History of unexplained or recurrent spontaneous Oral contraceptives or hormone replacement Sepsis (< 1 month) Serious lung disease, including pneumonia (< 1 month) Abnormal pulmonary function Acute myocardial infarction Congestive heart failure (< 1 month) History of inflammatory bowel disease Medical patient at bed rest Age 61-74 Arthroscopic surgery Major open surgery (> 45 min) Laparoscopic surgery (> 45 min) Malignancy Confined to bed (> 72 hours) Immobilizing plaster cast Central venous access Age >= 75 History of VTE Family history of VTE Factor V Leiden Prothrombin 20382H Lupus anticoagulant Anticardiolipin antibodies Elevated serum homocysteine Heparin-induced thrombocytopenia Other congenital or acquired thrombophilia Stroke (< 1 month) Elective arthroplasty Hip, pelvis, or leg fracture Acute spinal cord injury (< 1 month) Prophylaxis Regimen Total Risk Factor Score Risk Level Prophylaxis Regimen 0-1 Low Early ambulation 2 Moderate Order ONE of the following: *Sequential Compression Device (SCD) *Heparin 5000 units SQ BID 3-4 Higher Order ONE of the following medications: *Heparin 5000 units SQ TID *Enoxaparin/Lovenox 40 mg SQ daily (WT < 150 kg, CrCl > 30 mL/min) *Enoxaparin/Lovenox 30 mg SQ daily (WT < 150 kg, CrCl > 10-29 mL/min) *Enoxaparin/Lovenox 30 mg SQ BID (WT < 150 kg, CrCl > 30 mL/min) AND/OR *Sequential Compression Device (SCD) 5 or more Highest Order ONE of the following medications: *Heparin 5000 units SQ TID (Preferred with Epidurals) *Enoxaparin/Lovenox 40 mg SQ daily (WT < 150 kg, CrCl > 30 mL/min) *Enoxaparin/Lovenox 30 mg SQ daily (WT < 150 kg, CrCl > 10-29 mL/min) *Enoxaparin/Lovenox 30 mg SQ BID (WT < 150 kg, CrCl > 30 mL/min) AND *Sequential Compression Device (SCD) Assessment and Plan Problem List: (1) Polypharmacy ICD Code: Z79.899 - Other exterminator termite (current) drug therapy Status: Resolved (2) Physical deconditioning ICD Code: R53.81 - Other malaise Status: Acute Assessment and Plan 41 y/o female with a history of seizures, DM, and CVA with previous right-sided paralysis presented to the ED for increased weakness. Polypharmacy suspected, patient with hypoglycemia and lethargy Head CT reviewed and unremarkable -Hold all sedating medications -Will consult psych if needed Hypoglycemia, possible due to misuse of home medication -Accu checks with SSI -IVF D5NS for hydration Physical deconditioning -PT eval and treat -Patient may benefit from a SNF vs [facility] DVT prophylaxis: Heparin Discussed Condition With Patient's family Johnny Diasah JACOB Sep 01, 2017 23:30
[2017-09-02 01:00] VITALS: BP 132/77; PULSE 84; RESP 16; O2SAT 94
[2017-09-02 05:03] VITALS: BP 127/79; PULSE 90; RESP 14; O2SAT 100
[2017-09-02] MEDS: HEPARIN SODIUM - SQ 10,000 UNITS/ML VIAL SQ SCH ×2 (05:54→13:06)
[2017-09-02 06:25] LABS: BICARBONATE 25.1 MEQ/L (21.0-32.0); CALCIUM 8.2 MG/DL (8.5-10.1); CREATININE 0.62 MG/DL (0.50-1.00)
[2017-09-02 07:32] VITALS: BP 118/71; PULSE 89; RESP 12; TEMP 98.6; O2SAT 96
[2017-09-02] MEDS: INSULIN ASPART SUPPLEMENTAL SCALE SQ SCH ×3 (07:40→17:00)
[2017-09-02] MEDS ORDERED: SERTRALINE HCL 100 MG TAB PO SCH (09:00)
[2017-09-02] MEDS ORDERED: OXYBUTYNIN CHLORIDE 5 MG TAB PO SCH (09:00)
[2017-09-02] MEDS ORDERED: FAMOTIDINE 20 MG TAB PO SCH (09:00)
[2017-09-02] MEDS ORDERED: DOCUSATE SODIUM 50 MG/SENNA 8.6 MG TAB PO SCH (09:00)
[2017-09-02] MEDS ORDERED: levETIRAcetam 500 MG TAB PO SCH (09:00)
[2017-09-02] MEDS ORDERED: SODIUM CHLORIDE 0.9% FLUSH 10 ML FLUSH IV FLUSH SCH (09:00)
[2017-09-02 10:42] VITALS: BP 131/82; PULSE 88; RESP 20; O2SAT 98
[2017-09-02 11:04] LABS: AUTOMATED NEUTROPHIL # 1.9 TH/MM3 (1.8-7.7); EOSINOPHIL # 0.2 TH/MM3 (0-0.4); EOSINOPHIL % 4.1 % (0.0-4.0); HEMATOCRIT 42.7 % (35.0-46.0); HEMOGLOBIN 13.8 GM/DL (11.6-15.3); LYMPH % 46.1 % (9.0-44.0); LYMPHOCYTE # 2.1 TH/MM3 (1.0-4.8); MEAN CELL VOLUME 83.6 FL (80.0-100.0); MEAN CORPUSCULAR HEMOGLOBIN 27.1 PG (27.0-34.0); MEAN CORPUSCULAR HGB CONC 32.4 % (32.0-36.0); MEAN PLATELET VOLUME 8.3 FL (7.0-11.0); MONO % 8.6 % (0.0-8.0); MONOCYTE # 0.4 TH/MM3 (0-0.9); NEUT % 40.2 % (16.0-70.0); PLATELET COUNT 344 TH/MM3 (150-450); RED BLOOD COUNT 5.11 MIL/MM3 (4.00-5.30); RED CELL DISTRIBUTION WIDTH 14.3 % (11.6-17.2); WHITE BLOOD COUNT 4.6 TH/MM3 (4.0-11.0)
[2017-09-02] MEDS: DEXT 5%-NACL 0.9% 1000 ML INJ 1,000 ML IV SCH (13:11)
--- NOTE | 2017-09-02 14:15 | PD.PN.STU ---
Subjective Remarks patients responds with "mhms" and "no's" due to speech effected by prior CVA. She reports feeling better. No shortness of breath, dizziness, chest pain, headache. Objective Vitals Vital Signs Date Time Temp Pulse Resp B/P (MAP) Pulse Ox O2 Delivery O2 Flow Rate FiO2 09/02/17 10:42 88 20 131/82 (98) 98 09/02/17 07:32 98.6 89 12 118/71 (87) 96 Room Air 09/02/17 05:03 90 14 127/79 (95) 100 Room Air 09/02/17 01:00 84 16 132/77 (95) 94 Room Air 09/01/17 23:00 84 16 135/73 (93) 100 Room Air 09/01/17 21:00 84 16 123/72 (89) 100 Room Air 09/01/17 19:41 99.1 88 16 136/77 (96) 100 Result Diagram: 09/02/17 0909 09/02/17 0503 Other Results Laboratory Tests Test 09/02/17 05:00 09/02/17 09:41 Blood Urea Nitrogen 5 MG/DL (7-18) Creatinine 0.62 MG/DL (0.50-1.00) Random Glucose 99 MG/DL (74-106) Calcium Level 8.2 MG/DL (8.5-10.1) Sodium Level 139 MEQ/L (136-145) Potassium Level 3.8 MEQ/L (3.5-5.1) Chloride Level 108 MEQ/L (98-107) Carbon Dioxide Level 25.1 MEQ/L (21.0-32.0) Anion Gap 6 MEQ/L (5-15) Estimat Glomerular Filtration Rate 130 ML/MIN (>89) White Blood Count 4.6 TH/MM3 (4.0-11.0) Red Blood Count 5.11 MIL/MM3 (4.00-5.30) Hemoglobin 13.8 GM/DL (11.6-15.3) Hematocrit 42.7 % (35.0-46.0) Mean Corpuscular Volume 83.6 FL (80.0-100.0) Mean Corpuscular Hemoglobin 27.1 PG (27.0-34.0) Mean Corpuscular Hemoglobin Concent 32.4 % (32.0-36.0) Red Cell Distribution Width 14.3 % (11.6-17.2) Platelet Count 344 TH/MM3 (150-450) Mean Platelet Volume 8.3 FL (7.0-11.0) Neutrophils (%) (Auto) 40.2 % (16.0-70.0) Lymphocytes (%) (Auto) 46.1 % (9.0-44.0) Monocytes (%) (Auto) 8.6 % (0.0-8.0) Eosinophils (%) (Auto) 4.1 % (0.0-4.0) Basophils (%) (Auto) 1.0 % (0.0-2.0) Neutrophils # (Auto) 1.9 TH/MM3 (1.8-7.7) Lymphocytes # (Auto) 2.1 TH/MM3 (1.0-4.8) Monocytes # (Auto) 0.4 TH/MM3 (0-0.9) Eosinophils # (Auto) 0.2 TH/MM3 (0-0.4) Basophils # (Auto) 0.0 TH/MM3 (0-0.2) CBC Comment DIFF FINAL Differential Comment Objective Remarks In No acute distress. Regular rate and rhythm, no gallops or murmurs. Lungs clear bilaterally throughout. No edema. Pulses intact bilaterally at dorsalis pedis. A/P Assessment and Plan 41 y/o female with a history of seizures, DM, and CVA with previous right-sided paralysis presented to the ED for increased weakness. Polypharmacy suspected, patient with hypoglycemia and lethargy 4/12 glucose up to 105. Hypoglycemia, possible due to misuse of home medication 4/12 glucose up to 105 with SSI and IVF Physical deconditioning 4/12 pt recommends home health with hospital bed rental. DVT prophylaxis: Heparin Gayatri Salgado M3 Sep 02, 2017 14:15
[2017-09-02] MEDS ORDERED: BACL10TA PO (15:23)
[2017-09-02 15:26] VITALS: BP 113/69; PULSE 91; RESP 16; TEMP 99.1; O2SAT 100
--- NOTE | 2017-09-02 15:26 | HHI.DCPOC ---
Discharge Care Plan Diagnosis: (1) Diabetes mellitus (2) Seizures (3) Debility (4) Impaired activities of daily living (5) Generalized weakness (6) Polypharmacy Goals to Promote Your Health * To prevent worsening of your condition and complications * To maintain your health at the optimal level Directions to Meet Your Goals Take your medications as prescribed Follow your dietary instruction Follow activity as directed Keep your appointments as scheduled Take your immunizations and boosters as scheduled If your symptoms worsen call your PCP, if no PCP go to Urgent Care Center or Emergency Room Smoking is Dangerous to Your Health. Avoid second hand smoke Call the 24-hour hour crisis hotline for domestic abuse at Norm Jalloh MD Sep 02, 2017 15:26
--- NOTE | 2017-09-02 15:29 | HHI.FF ---
Face to Face Verification Diagnosis: (1) Expressive aphasia (2) Weakness (3) Physical deconditioning (4) Diabetes mellitus (5) Generalized weakness (6) Seizures (7) Polypharmacy Physical Therapy Order: Strength and gait training Occupational Therapy Order: Evaluate and Treat Speech Therapy Order: To Improve: Speech and communication skills, Cognitive skills Home Health Nursing Order: Nursing assessment with vital signs I have seen patient Christy Galindo on 09/02/17. My clinical findings support the need for the requested home health care services because: Deconditioned w/ increased weakness Limited ability to care for self Need for psychosocial assistance Impaired cognition/judgement High risk of falls I certify that my clinical findings support that this patient is homebound because: Unsafe to leave home unassisted Need for psychosocial assistance [id number] bed/chair Unable to use public transportation Norm Jalloh MD Sep 02, 2017 15:29
--- NOTE | 2017-09-02 15:42 | HHI.DS ---
Discharge Summary Admission Date Sep 01, 2017 at 22:37 Discharge Date: Sep 02, 2017 Admitting Diagnosis Generalized weakness (1) Polypharmacy ICD Code: Z79.899 - Other broomcorn scraper (current) drug therapy Diagnosis: Principal Status: Resolved (2) Physical deconditioning ICD Code: R53.81 - Other malaise Diagnosis: Principal Status: Acute (3) H/O: CVA (cerebrovascular accident) ICD Code: Z86.73 - Personal history of transient ischemic attack (TIA), and cerebral infarction without residual deficits Diagnosis: Principal Status: Chronic (4) Impaired activities of daily living ICD Code: R53.81 - Other malaise Diagnosis: Principal Status: Chronic (5) Expressive aphasia ICD Code: R47.01 - Aphasia Diagnosis: Principal Status: Chronic (6) Weakness ICD Code: R53.1 - Weakness Diagnosis: Principal Status: Acute (7) Seizures ICD Code: R56.9 - Unspecified convulsions Status: Acute Procedures None Brief History - From Admission 41 y/o female with a history of seizures, DM, and CVA with previous right-sided paralysis presented to the ED for increased weakness. Patient was recently discharged on August 26. Per the family patient was feeling weak, and they did not want her passing out so they brought called EVAC. When Evac arrived her blood sugar was low. Family states patient ate Oatmeal breakfast, 2 peanut butter/jelly sandwiches, banana and two tacos. Family is unsure what medications were given, family states patient puts her own meds in her pill box and they just give it to her. Unsure if she received multiple doses of medications. 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 Family states they do not have [facility] or a hospital bed, since last admission they have not heard if she was approved. They state the company called and needed a diagnosis code before the bed could be delivered. According to last admission case management note HHC was suppose to be set up and a bed was to be delivered. Patient was examined and opens eyes to pain and voice. She does not speak, and family states she only says some words. CBC/BMP: 09/02/17 0941 09/02/17 0500 Significant Findings Laboratory Tests Test 09/01/17 20:05 09/01/17 20:40 09/02/17 05:00 09/02/17 09:41 Urine Mucus FEW /lpf (OCC) Urine Opiates Screen POS (NEG) Lymphocytes (%) (Auto) 48.7 % (9.0-44.0) 46.1 % (9.0-44.0) Monocytes (%) (Auto) 13.0 % (0.0-8.0) 8.6 % (0.0-8.0) Eosinophils (%) (Auto) 4.6 % (0.0-4.0) 4.1 % (0.0-4.0) Blood Urea Nitrogen 6 MG/DL (7-18) 5 MG/DL (7-18) Total Creatine Kinase 247 U/L (26-192) Creatine Kinase MB 5.0 NG/ML (0.5-3.6) Troponin I LESS THAN 0.02 NG/ML Calcium Level 8.2 MG/DL (8.5-10.1) Chloride Level 108 MEQ/L (98-107) Imaging Last Impressions Head CT 09/01/171941 Signed Impressions: Service Date/Time: Friday, September 01, 2017 22:00 - CONCLUSION: 1. No acute intracranial abnormality. Mychal Del Rosario MD PE at Discharge Awake and alert NAD Right hemiparesis. Clear lungs bilaterally S1-S2 with regular rate and rhythm, no murmurs no gallops. Abdomen soft, nontender nondistended No edema in lower extremities. Pt update on day of discharge Patient is awake and alert, follows commands, able to answer with a broken speech. Afebrile with stable vital signs. Hospital Course The patient was placed on outpatient observation. CT of the head negative for acute process. Polypharmacy suspected since patient with hyperglycemia and lethargy. All psychotropic medications were discontinued metformin was held. The patient was placed on D5NS. B blood sugars remained stable. Patient back to baseline mental status. Physical therapy consulted. Recommended home with home health PT and supervision at all times. Speech therapy and occupational therapy also recommended. Upon discharge metformin and gabapentin will be discontinued. Patient's Flexeril also discontinued and the patient was her baclofen 3 times daily. Pt Condition on Discharge: Stable Discharge Disposition: Disch w/ Home Health Serv Discharge Time: > 30 minutes Discharge Instructions DIET: Follow Instructions for: Heart Healthy Diet Activities you can perform: See Additionl Instruction Other Activity Instructions: As per PT OOB with assistance Follow up Referrals: PCP Follow-up - 3-5 Days New Medications: Baclofen (Baclofen) 10 Mg Tab 10 MG PO Q8HR, #93 TAB 0 Refills Continued Medications: Acetaminophen (Eq Acetaminophen) 325 Mg Tab 650 MG PO Q4H PRN for HEADACHE AND/OR PAIN, #20 TAB Atorvastatin (Atorvastatin) 40 Mg Tab 40 MG PO HS for Cholesterol Management, #30 TAB 0 Refills Enoxaparin Inj (Lovenox Inj) 40 Mg/0.4 Ml Syr 40 MG SQ Q24H for dvt proph, #15 INJECTION Hospital Bed - Electric (Hospital Bed - Electric) 1 Ea Ea EA .XX DIRECTED for weakness, #1 Levetiracetam (Keppra) 500 Mg Tab 500 MG PO Q12HR for ., #60 TAB Oxybutynin (Ditropan) 5 Mg Tab 5 MG PO Q12HR for Urinary Symptom Managemen, #1 TAB 0 Refills Ranitidine (Zantac) 150 Mg Tab 150 MG PO BID for Reduce Stomach Acid, #1 TAB 0 Refills Sertraline (Zoloft) 100 Mg Tab 100 MG PO DAILY, #1 TAB 0 Refills Discontinued Medications: Cyclobenzaprine (Flexeril) 10 Mg Tab 10 MG PO TID for Muscle Spasm, #1 TAB 0 Refills Gabapentin (Gabapentin) 600 Mg Tab 600 MG PO TID, #1 TAB 0 Refills Metformin (Metformin) 500 Mg Tab 500 MG PO DAILY for Blood Sugar Management, #1 TAB 0 Refills With a meal Norm Jalloh MD Sep 02, 2017 15:42
--- NOTE | 2017-09-02 18:51 | EKG ---
Date Performed: 09/01/2017 Time Performed: 19:51:00 PTAGE: 41 years EKG: Sinus rhythm INCOMPLETE RIGHT BUNDLE BRANCH BLOCK NONSPECIFIC T-WAVE ABNORMALITY Since the previous tracing, no s ignificant change noted BORDERLINE ECG PREVIOUS TRACING : 08/18/17 @ 1408 DOCTOR: Zeke Luna Interpretating Date/Time 09/02/2017 18:47:17
[2017-09-02] MEDS ORDERED: ATORVASTATIN 40 MG TAB PO SCH (21:00)
== END 2017-09-02 20:13 | disposition home or self-care (01) ==
LOC: NEPC 19:02 → UNDOADMOB 22:37 → NEDA 22:37 → NEDH 09-02 07:08 → NEDA 09-02 07:08 → NEDH 09-02 12:19 → NEDA 09-02 12:30 → NEDH 09-02 13:25 → NEPFCDU 09-02 15:49 → NEDH 09-02 15:49 → UNDODISOB 09-02 20:13
PROVIDERS: ADMIT Hospitalist; ATTEND Hospitalist
DX: E11.649 Type 2 diabetes mellitus with hypoglycemia without coma (principal); E11.65 Type 2 diabetes mellitus with hyperglycemia; E78.00 Pure hypercholesterolemia, unspecified; G83.4 Cauda equina syndrome; R56.9 Unspecified convulsions; I45.10 Unspecified right bundle-branch block; R47.01 Aphasia; K21.9 Gastro-esophageal reflux disease without esophagitis; M54.9 Dorsalgia, unspecified; G89.29 Other chronic pain; F41.9 Anxiety disorder, unspecified; F32.9 Major depressive disorder, single episode, unspecified; M19.90 Unspecified osteoarthritis, unspecified site; F17.200 Nicotine dependence, unspecified, uncomplicated; Z79.899 Other long term (current) drug therapy; Z79.84 Long term (current) use of oral hypoglycemic drugs; Z86.73 Personal history of transient ischemic attack (TIA), and cerebral infarction without residual deficits
CPT/HCPCS: 70450; 80048; 80053; 80307; 81001; 82140; 82550; 82552; 82948; 84443; 84484; 84703; 85025; 85610; 85730; 93005; 96360; 96361; 96372; 97163; 99285; G0378; G8987; G8988; J1644; J7042; P9612